=== PATIENT | female | born 1975 | race Caucasian/White ===

== ENCOUNTER 2021-10-11 08:58 | Outpatient (REF) | payer OTHER, SELFPAY ==
--- NOTE | ~2021-10-11 | US_ITS ---
EXAMINATION: US THYROID CLINICAL INFORMATION: Nontoxic goiter, unspecified. COMPARISON: None. TECHNIQUE: Linear transducer grayscale and color Doppler examination with attention to the region of the thyroid. FINDINGS: SIZE: Measurements of the thyroid lobes and nodules are given in sagittal, anteroposterior and transverse dimensions respectively. Right Thyroid Lobe: 4.5 x 1.2 x 1.5 cm, volume 4.2 mL. Parenchyma: The gland echotexture is homogeneous. Thyroid vascularity is normal. Left Thyroid Lobe: 4.4 x 1.2 x 1.4 cm, volume 3.9 mL. Parenchyma: The gland echotexture is homogeneous. Thyroid vascularity is normal. Isthmus: 0.2 cm in maximum AP dimension. No focal thyroid nodule is seen. NODES: There is right level 3 lymph node measuring 1.7 x 0.5 1.1 cm and level 2 left neck lymph node measuring 2.0 x 1.0 x 2.6 cm. US/US thyroid IMPRESSION: Unremarkable ultrasound thyroid gland with no focal nodule or heterogeneity seen. Benign-appearing right and left neck lymph nodes. ACR TI-RADS RECOMMENDATION REFERENCE: Ultrasound-guided fine-needle aspiration, followup ultrasound, no further follow up. * TR1 (0 point) and TR 2 (2 points): No FNA or follow up * TR3 (3 points): FNA if more than or equal to 2.5 cm in maximum dimension, followup ultrasound in 1, 3 and 5 years if 1.5 to 2.4 cm in maximum dimension. * TR4 (4-6 points): FNA if more than or equal to 1.5 cm in maximum dimension, followup ultrasound in 1, 2, 3 and 5 years if 1 to 1.4 cm in maximum dimension. * TR5 (more than or equal to 7 points): FNA if more than or equal to 1 cm in maximum dimension, followup ultrasound every year for 5 years if 0.5 to 0.9 cm in maximum dimension. * TR3, TR4 or TR5 nodules that are below the size threshold for follow up receive no follow up.
[2021-10-11 11:43] LABS: Hematocrit 41.8 % (37.0-47.0); Hemoglobin 13.4 g/dl (12.0-16.0); Mean Corpuscular HGB Conc 32.1 g/dl (31.0-35.0); Mean Corpuscular Hemoglobin 31.8 pg (27.0-33.0); Mean Corpuscular Volume 99.1 fL (80.0-98.0); Mean Platelet Volume 10.4 fL (9.4-12.3); Platelet Count 286 X10*3/uL (160-400); Red Blood Count 4.22 X10*6/uL (4.20-5.50); Red Cell Distribution Width 13.7 % (11.0-16.0); White Blood Count 6.2 X10*3/uL (4.8-10.8)
[2021-10-11 12:09] LABS: Appearance Urine CLEAR; Color Urine YELLOW; Glucose Urine UA NEG (NEG); Leukocyte Esterase Urine NEG (NEG); Nitrite Urine NEG (NEG); Urine Blood NEG (NEG); Urine Ketones NEG (NEG); Urine Protein NEG (NEG-TRACE)
[2021-10-11 12:31] LABS: TSH reflex Free T4 2.33 uIU/mL (0.32-4.0)
[2021-10-11 12:40] LABS: Alanine Aminotransferase 25 U/L (0-31); Alkaline Phosphatase 105 U/L (39-117); Anion Gap 12 (12-20); Aspartate Amino Transferase 20 U/L (5-31); Bilirubin Total 0.7 mg/dL (0.0-1.0); Blood Urea Nitrogen 12 mg/dL (9-16); Carbon Dioxide 26 mmol/L (22-29); Chloride 105 mmol/L (96-108); Cholesterol 155 mg/dL; Estimated Glomerular Filt Rate > 60; Glucose Fasting 90 mg/dL (60-99); HDL Cholesterol 58 mg/dL; LDL Cholesterol Calculated 84 mg/dl; Potassium 4.5 mmol/L (3.3-5.1); Sodium 138 mmol/L (135-145); Total Protein 7.4 g/dL (6.5-8.0); Triglycerides 66 mg/dL
[2021-10-11 13:57] LABS: Squamous Epithelial Cell Urine 1+ /LPF; WBC Urine 0-2 /HPF (0-4)
== END 2021-10-11 08:59 | disposition home or self-care (01) ==
LOC: HO.HMGCLDS 08:58
PROVIDERS: PCP Internal Medicine; Visit Provider Internal Medicine
DX: Z00.00 Encounter for general adult medical examination without abnormal findings (principal); E04.9 Nontoxic goiter, unspecified; E66.3 Overweight
CPT/HCPCS: 36415; 76536; 80053; 80061; 81001; 84443; 85027

== ENCOUNTER 2021-10-11 09:58 | Outpatient (REF) | payer OTHER, SELFPAY ==
[2021-10-14 05:51] LABS: HPV mRNA E6/E7 rflx Not Detected (Not Detected)
== END 2021-10-11 09:59 | disposition home or self-care (01) ==
LOC: HO.LAB 09:58
PROVIDERS: Visit Provider Internal Medicine
DX: Z12.4 Encounter for screening for malignant neoplasm of cervix (principal); Z11.51 Encounter for screening for human papillomavirus (HPV)
CPT/HCPCS: 87624; 88142

== ENCOUNTER 2021-11-15 09:07 | Outpatient (REF) | payer OTHER, SELFPAY ==
--- NOTE | ~2021-11-15 | MM_ITS ---
EXAMINATION: MM SCREENING DIGITAL BREAST TOMOSYNTHESIS, BILATERAL CLINICAL INFORMATION: Screening. Asymptomatic. The lifetime risk of breast cancer based on the Tyrer-Cuzick Model is 17%. COMPARISON: Outside mammography: 08/29/2017 ([facility]). TECHNIQUE: Digital breast tomosynthesis is performed in both the craniocaudal and mediolateral oblique views along with computer-aided detection (CAD). Synthesized 2D images are generated from the tomosynthesis. Additional left view is provided. FINDINGS: There are scattered areas of fibroglandular density (ACR BI-RADS breast composition Category b). Parenchymal pattern is similar to prior outside exam. There is no interval mass or architectural abnormality or abnormal calcifications. Small dermal lesion overlies posterior upper left breast on MLO view. The axilla and skin contours are unremarkable. No significant changes. MM/MM tomosynthesis screening BI IMPRESSION: No mammographic evidence of malignancy. ASSESSMENT: BI-RADS 1: Negative RECOMMENDATION: Routine annual mammography screening. This patient's information was entered into a reminder system with a target due date for their next mammogram.
== END 2021-11-15 09:08 | disposition home or self-care (01) ==
LOC: HO.MAMMO 09:07
PROVIDERS: PCP Internal Medicine; Visit Provider Internal Medicine
DX: Z12.31 Encounter for screening mammogram for malignant neoplasm of breast (principal)
CPT/HCPCS: 77063; 77067

== ENCOUNTER 2022-11-23 08:08 | Outpatient (REF) | payer OTHER, SELFPAY ==
--- NOTE | ~2022-11-23 | MM_ITS ---
EXAMINATION: MM SCREENING DIGITAL BREAST TOMOSYNTHESIS, BILATERAL CLINICAL INFORMATION: Screening. Asymptomatic. The lifetime risk of breast cancer based on the Tyrer-Cuzick Model is 17%. COMPARISON: Mammography: 11/15/2021, outside mammography 08/29/2017 ([facility]) TECHNIQUE: Digital breast tomosynthesis is performed in both the craniocaudal and mediolateral oblique views along with computer-aided detection (CAD). Synthesized 2D images are generated from the tomosynthesis. Additional left CC view is provided. FINDINGS: There are scattered areas of fibroglandular density (ACR BI-RADS breast composition Category b). There are no significant masses, abnormal calcifications, or other abnormalities. No architectural abnormality or developing density or significant change from prior studies. The axilla are unremarkable. MM/MM tomosynthesis screening BI IMPRESSION: No mammographic evidence of malignancy. ASSESSMENT: BI-RADS 1: Negative RECOMMENDATION: Routine annual mammography screening. This patient's information was entered into a reminder system with a target due date for their next mammogram.
== END 2022-11-23 08:09 | disposition home or self-care (01) ==
LOC: HO.MAMMO 08:08
PROVIDERS: Visit Provider Internal Medicine
DX: Z12.31 Encounter for screening mammogram for malignant neoplasm of breast (principal)
CPT/HCPCS: 77063; 77067

== ENCOUNTER 2023-01-09 11:19 | Outpatient (REF) | payer OTHER, SELFPAY ==
[2023-01-09 14:04] LABS: Bacteria Urine Trace (None Seen); Hyaline Casts Urine 0-2 /LPF (0-2); RBC Urine >20 /HPF (0-2)
[2023-01-09 14:05] LABS: MANUAL DIFF FLAG NO
[2023-01-09 14:10] LABS: Appearance Urine Cloudy; Color Urine DK YELLOW; Glucose Urine UA Negative (Negative); Leukocyte Esterase Urine Negative (Negative); Nitrite Urine Negative (Negative); Urine Blood Large (3+) (Negative); Urine Ketones Negative (Negative); Urine Protein Trace mg/dL (Neg-Trace)
[2023-01-09 14:11] LABS: UMIC TRIGGER UA YES
[2023-01-09 14:31] LABS: Basophils Absolute Auto 0.1 X10*3/uL (0.0-0.2); Eosinophils Absolute Auto 0.4 X10*3/uL (0.0-0.4); Eosinophils Percent Auto 5.6 % (0-4); Hematocrit 40.8 % (37.0-47.0); Imm Gran Abs Auto 0.03 X10*3/uL (0.00-0.03); Imm Gran Pct Auto 0.4 % (0.0-0.4); Lymphocytes Absolute Auto 1.7 X10*3/uL (1.2-4.9); Lymphocytes Percent Auto 24.4 % (20-40); Mean Corpuscular HGB Conc 31.9 g/dl (31.0-35.0); Mean Corpuscular Hemoglobin 31.2 pg (27.0-33.0); Mean Corpuscular Volume 97.8 fL (80.0-98.0); Mean Platelet Volume 10.4 fL (9.4-12.3); Monocytes Absolute Auto 0.7 X10*3/uL (0.1-1.2); Monocytes Percent Auto 10.4 % (2-11); Neutrophils Percent Auto 58.2 % (45-73); Platelet Count 293 X10*3/uL (160-400); Red Blood Count 4.17 X10*6/uL (4.20-5.50); Red Cell Distribution Width 14.3 % (11.0-16.0); White Blood Count 6.9 X10*3/uL (4.8-10.8)
[2023-01-09 15:01] LABS: Alanine Aminotransferase 18 U/L (0-31); Albumin Level 3.8 g/dL (3.5-5.0); Alkaline Phosphatase 95 U/L (39-117); Anion Gap 6 (12-20); Aspartate Amino Transferase 18 U/L (5-31); Bilirubin Total 1.1 mg/dL (0.0-1.0); Blood Urea Nitrogen 16 mg/dL (9-16); Calcium 8.6 mg/dL (8.4-10.2); Carbon Dioxide 29 mmol/L (22-29); Chloride 108 mmol/L (96-108); Cholesterol 148 mg/dL; Estimated Glomerular Filt Rate > 60; Glucose Fasting 86 mg/dL (60-99); HDL Cholesterol 51 mg/dL; LDL Cholesterol Calculated 86 mg/dl; Potassium 4.2 mmol/L (3.3-5.1); Sodium 139 mmol/L (135-145); Total Protein 6.5 g/dL (6.5-8.0); Triglycerides 55 mg/dL
[2023-01-09 15:02] LABS: TSH reflex Free T4 2.51 uIU/mL (0.32-4.0)
== END 2023-01-09 11:20 | disposition home or self-care (01) ==
LOC: HO.HMGCLDS 11:19
PROVIDERS: PCP Internal Medicine; Visit Provider Internal Medicine
DX: Z00.00 Encounter for general adult medical examination without abnormal findings (principal); E66.3 Overweight; I10 Essential (primary) hypertension
CPT/HCPCS: 36415; 80053; 80061; 81001; 84443; 85025

== ENCOUNTER 2023-01-16 09:06 | Outpatient (REF) | payer OTHER, SELFPAY ==
[2023-01-16 11:28] LABS: Appearance Urine Cloudy; Color Urine Yellow; Glucose Urine UA Negative (Negative); Leukocyte Esterase Urine Small (1+) (Negative); Nitrite Urine Negative (Negative); Specific Gravity - Urine >= 1.030 (1.005-1.025); UMIC TRIGGER UA YES; Urine Blood Negative (Negative); Urine Ketones Negative (Negative); Urine Protein Negative (Neg-Trace)
[2023-01-16 11:34] LABS: Bacteria Urine 1+ (None Seen); Hyaline Casts Urine 0-2 /LPF (0-2)
== END 2023-01-16 09:07 | disposition home or self-care (01) ==
LOC: HO.HMGCLDS 09:06
PROVIDERS: PCP Internal Medicine; Visit Provider Internal Medicine
DX: Z00.00 Encounter for general adult medical examination without abnormal findings (principal)
CPT/HCPCS: 81001

== ENCOUNTER 2023-01-30 14:49 | Outpatient (REF) | payer OTHER, SELFPAY ==
--- NOTE | ~2023-01-30 | US_ITS ---
EXAMINATION: US RETROPERITONEAL LIMITED (RENAL ONLY) CLINICAL INFORMATION: Asymptomatic microscopic hematuria. COMPARISON: None available. TECHNIQUE: Real-time imaging of the kidneys. FINDINGS: RIGHT KIDNEY: 11.1 x 5.3 x 5.8 cm (SAG x AP x TRV). The kidney is normal in size, contour, and echogenicity. Renal cortical thickness is normal. 3 cm simple appearing lower pole cyst for which no follow-up imaging is usually warranted. Subcentimeter midpole cortical defect, possibly scar. No renal calculi or hydronephrosis. LEFT KIDNEY: 10.5 x 5.9 x 5.4 cm (SAG x AP x TRV). The kidney is normal in size, contour, and echogenicity. Renal cortical thickness is normal. 9 mm simple appearing upper pole cyst for which no follow-up imaging is usually warranted. Some linear echogenic foci are noted within the left kidney which are nonspecific but may represent vascular reflections. There is no hydronephrosis. US/US renal BI IMPRESSION: No renal calculi or hydronephrosis of either kidney.
== END 2023-01-30 14:50 | disposition home or self-care (01) ==
LOC: HO.US 14:49
PROVIDERS: PCP Internal Medicine; Visit Provider Internal Medicine
DX: R31.21 Asymptomatic microscopic hematuria (principal)
CPT/HCPCS: 76775

== ENCOUNTER 2023-03-20 09:36 | Outpatient (REF) | payer OTHER, SELFPAY ==
[2023-03-25 05:34] LABS: HPV mRNA E6/E7 rflx Not Detected (Not Detected)
== END 2023-03-20 09:37 | disposition home or self-care (01) ==
LOC: HO.LNP 09:36
PROVIDERS: PCP Internal Medicine; Visit Provider Advanced Practice Midwife
DX: Z01.419 Encounter for gynecological examination (general) (routine) without abnormal findings (principal); Z11.51 Encounter for screening for human papillomavirus (HPV)
CPT/HCPCS: 87624; 88142

== ENCOUNTER 2023-03-31 09:42 | Outpatient (REF) | payer OTHER, SELFPAY ==
[2023-03-31 11:39] LABS: Appearance Urine Clear; Color Urine Yellow; Glucose Urine UA Negative (Negative); Leukocyte Esterase Urine Negative (Negative); Nitrite Urine Negative (Negative); Specific Gravity - Urine 1.025 (1.005-1.025); Urine Blood Negative (Negative); Urine Ketones Negative (Negative); Urine Protein Negative (Neg-Trace)
[2023-03-31 11:42] LABS: Bacteria Urine None Seen (None Seen); Hyaline Casts Urine 0-2 /LPF (0-2); RBC Urine 0-2 /HPF (0-2); Squamous Epithelial Cell Urine 0-2 /HPF (0-2); WBC Urine 0-5 /HPF (0-5)
== END 2023-03-31 09:43 | disposition home or self-care (01) ==
LOC: HO.HMGCLDS 09:42
PROVIDERS: PCP Internal Medicine; Visit Provider Internal Medicine
DX: Z00.00 Encounter for general adult medical examination without abnormal findings (principal); R31.21 Asymptomatic microscopic hematuria
CPT/HCPCS: 81001; 81003

== ENCOUNTER 2023-04-03 11:00 | Outpatient (AMB) | payer OTHER, SELFPAY ==
--- NOTE | 2023-04-03 11:15 | MHC.OFFVIS ---
Intake Vital Signs 04/03/23 11:16 Height 5 ft 1 in Weight 253 lb BMI 47.8 BP 132/61 Blood Pressure Location Lt brachial Position Sitting Pulse 69 Intake Visit Reasons: colonoscopy screening Intake Note: Patient 1st pre colonoscopy screening. Patient denies any GI issues. Overlock Hemmer Required: No Accompanied by: Spouse Allergies amlodipine Adverse Reaction (Intermediate, Verified 04/03/23 11:15) cough cephalexin [From Keflex] Adverse Reaction (Verified 04/03/23 11:15) Rash Penicillins Adverse Reaction (Verified 04/03/23 11:15) Rash Sulfa (Sulfonamide Antibiotics) Adverse Reaction (Verified 04/03/23 11:15) Rash Medication List - Last Reconciled 04/03/23 by Shirin Burgos PA-C bisoprolol fumarate 5 mg PO DAILY HPI HPI Comments History of Present Illness Details A 48 y/o female - index screening colonoscopy-she is here with her Normal bowel pattern, she has a good appetite She has no GI or general complaints No known family history of GI cancer No respiratory or cardiac issues No nausea, vomiting, hematemesis, hematochezia fever chills PFSH Medical History Annual physical exam Anxiety Enlarged thyroid Grieving HTN (hypertension) Irregular menses Normal pelvic exam Overweight Surgical History Hx of cholecystectomy S/P knee surgery Family History Father HTN (hypertension) DM (diabetes mellitus) Mother HTN (hypertension) Stroke Social History Household Members Other:: , no children, work at [employer], Housing: House Patient Tobacco Use Status: Never used Tobacco Second Hand Smoke Exposure: Yes service: No Current occupational status: employed Cognitive needs: No Hearing needs: No Vision needs: No Review of Systems Const All systems reviewed & are unremarkable except as noted in HPI and below Card Denies chest pain and Denies dyspnea Resp Denies dyspnea GI Denies abdominal pain and Denies heartburn Physical Exam Vital Signs: Last Vital Signs Pulse 69 04/03/23 11:16 BP 132/61 04/03/23 11:16 BMI result Body Mass Index 47.8 Const General: cooperative, healthy appearing and comfortable Limitations: no limitations Eyes Sclerae: sclerae normal Resp Effort & Inspection: normal respiratory effort and able to speak in complete sentences Auscultation: clear to auscultation bilaterally Cardio Rate: regular rate Rhythm: regular rhythm Heart sounds: S1 normal heart sound present and S2 normal heart sound present GI Palpation (GI): Soft to palpation and nontender Auscultation: normal bowel sounds Skin General skin exam: no rashes or lesions noted Extrem General: Yes full ROM Psych Appearance: grossly normal and well kempt Mental Status: mental status grossly normal Speech and movement: Normal speech and movement present and Clear speech present Affect: normal affect Attitude: cooperative Thought process: Normal thought process present Thought content: Normal thought content present Insight: Good insight present (Psych) Judgement: Good judgement present (Psych) Assessment & Plan Assessment & Plan (1) Encounter for screening colonoscopy: Comment: Very pleasant female note GI concerns referred for index screening colonoscopy Code(s): Z12.11 - Encounter for screening for malignant neoplasm of colon Plan: index screening Plan colonoscopy MG Orders: Orders Colonoscopy - GI Use Only Today Z12.11 - Encounter for screening for malignant neoplasm of colon Medications: New bisacodyl (Dulcolax (bisacodyl)) Take 4 tablets by mouth at 12:00pm the day before your procedure. 20 mg (4 x 5 mg) PO ONCE 4 tabs 0RF colonoscopy prep 1 day Z12.11 - Encounter for screening for malignant neoplasm of colon polyethylene glycol 3350 (Miralax) Take as directed by mouth the day before your procedure. 238 grams PO ONCE 238 grams 0RF 1 day Patient Instructions: Index screening colonoscopy Discussed procedure, rare risks need for escorted due to anesthesia and MiraLax Gatorade split prep Literature given Encouraged to call questions or concerns Appreciate the opportunity assist in care the patient Coding Level of Care Code New Pt Level 3 (85469) Diagnoses Encounter for screening colonoscopy Z12.11 Time Spent (min) 25
[2023-04-03 11:16] VITALS: BP 132/61; PULSE 69; BMI 47.8
== END 2023-04-03 12:59 | disposition home or self-care (01) ==
PROVIDERS: PCP Internal Medicine; Visit Provider Physician Assistant
DX: Z01.818 Encounter for other preprocedural examination (principal); Z12.11 Encounter for screening for malignant neoplasm of colon
CPT/HCPCS: 99203

== ENCOUNTER → 2023-04-03 11:00 | Outpatient (BNVA) | payer OTHER, SELFPAY | PROVIDERS: PCP Internal Medicine; Visit Provider Physician Assistant ==

== ENCOUNTER 2023-04-13 11:06 | Outpatient (REF) | payer OTHER, SELFPAY ==
--- NOTE | ~2023-04-13 | US_ITS ---
EXAMINATION: US PELVIS CLINICAL INFORMATION: Personal history of other diseases of female genital tract. Last menstrual period 03/07/2023. COMPARISON: None available. TECHNIQUE: Ultrasound of the pelvis is performed using both transabdominal and transvaginal transducers along with Doppler. Transvaginal imaging is performed due to inadequate visualization transabdominally. FINDINGS: Uterus: The uterus is anteverted and measures 7.4 x 2.8 x 4.1 cm. Uterus is diffusely heterogeneous. No discrete fibroids. The double wall endometrial thickness is 0.4 cm. Adnexa: Bilateral ovaries were suboptimally visualized on transabdominal ultrasound images, limiting evaluation. Right ovary measures 1.8 x 0.9 x 1.4 cm. Volume 1.2 mL. Left ovary measures 1.5 x 1.1 x 1.9 cm. Volume 1.6 mL. Small amount of fluid within the cervix. US/US pelvic and transvaginal IMPRESSION: 1. Heterogeneous uterus. No discrete fibroids. 2. Endometrial thickness is 0.4 cm. Limited visualization of endometrium due to uterine heterogeneity and positioning. 3. Bilateral ovaries are grossly unremarkable, however, visualization limited as detailed above. 4. Small amount of fluid within the cervix.
== END 2023-04-13 11:07 | disposition home or self-care (01) ==
LOC: HO.US 11:06
PROVIDERS: PCP Internal Medicine; Visit Provider Advanced Practice Midwife
DX: Z01.419 Encounter for gynecological examination (general) (routine) without abnormal findings (principal); E66.01 Morbid (severe) obesity due to excess calories; Z87.42 Personal history of other diseases of the female genital tract
CPT/HCPCS: 76830; 76856

== ENCOUNTER 2023-06-19 09:27 | Outpatient (AMB) | payer OTHER, SELFPAY ==
--- NOTE | 2023-06-19 09:32 | A.OFFVIS_ITS ---
Intake Vital Signs 06/19/23 09:34 Height 5 ft 1 in Weight 256 lb BMI 48.4 BP 144/90 H Intake Visit Reasons: US Follow up Health And Safety Specialist Required: No Allergies amlodipine Adverse Reaction (Intermediate, Verified 06/19/23 09:38) cough cephalexin [From Keflex] Adverse Reaction (Verified 06/19/23 09:38) Rash Penicillins Adverse Reaction (Verified 06/19/23 09:38) Rash Sulfa (Sulfonamide Antibiotics) Adverse Reaction (Verified 06/19/23 09:38) Rash Medication List - Last Reconciled 06/19/23 by Elise Chapin CNM bisacodyl (Dulcolax (bisacodyl)) 20 mg (4 x 5 mg) PO ONCE 1 day bisacodyl (Dulcolax (bisacodyl)) 20 mg (4 x 5 mg) PO ONCE 1 day bisoprolol fumarate 5 mg PO DAILY polyethylene glycol 3350 (Miralax) 238 grams PO ONCE 1 day Is last menstrual period known: No (no menses since February) HPI US Follow up HPI Details Patient is here to review her ultrasound. She had a period March 16 to March 18 and another 1 April 06 to but has not had 1 in April or May. She often feels like she is going to get her. But it does not come about a year ago she missed a period for 6 months. In the past a Mirena IUD was planned but the procedure was attempted when she was towards the end of her menses and it was so painful and it was just impossible to get it into her cervix. She is but not having sex very much because her partner has issues with performance as well. She also has high blood pressure she is working on trying to eat better and she also was watching her blood pressure and has follow-up with her primary care provider in August for that. She and her just bought an exercise bike to tried a exercise in the house. She also has the bone spur and her heel and plantar fasciitis so she is limping and can not walk very much though she is on her feet for her work all day. She is waiting on an appointment with the foot doctor as well. She has not been sexually active because of her 's issues but she also does not want to get at this age. There has also been a lot of stress with financial and house concerns (roof problems). I reviewed her ultrasound which was fairly nonspecific but did not show and thickened lining. Her Pap smear was also normal discussed the option of taking Provera wants to see if that would bring on a. It is also certainly possible that she is in the amanda menopausal range and that may account for lack of menses. Though she is not absent menses long enough to consider doing an FSH. She would be interested in a Mirena again if it could be inserted so after much discussion plan was made to have her take Provera for 10 days at a date of her choosing and watch for he period; And when it comes she is to call to tried in schedule insertion of a Mirena as close to the start of her period as possible her periods typically only last 2-3 days so it is a small window aim for. In addition because she said the last attempt was so difficult and unsuccessful I am also prescribing a single dose of misoprostol for her to insert in her vagina 4-6 hours ahead of the insertions appointment rationale for all of this this discussed. She is interested in this she thinks that it will give her some relief to know that she can not get and that may make life better and lots of ways. FORMERLY [facility], [facility] Medical History Annual physical exam Anxiety Enlarged thyroid Grieving HTN (hypertension) Irregular menses Normal pelvic exam Overweight Surgical History Hx of cholecystectomy S/P knee surgery Family History Father HTN (hypertension) DM (diabetes mellitus) Mother HTN (hypertension) Stroke Social History Household Members Other:: , no children, work at [employer], Housing: House Patient Tobacco Use Status: Never used Tobacco Second Hand Smoke Exposure: Yes service: No Current occupational status: employed Cognitive needs: No Hearing needs: No Vision needs: No Female Reproductive History Menstrual control method: none Date of last pap smear: 03/23/23 (negative) Physical Exam Vital Signs: Last Vital Signs BP 144/90 H 06/19/23 09:34 BMI result Body Mass Index 48.4 Results Reviewed Results Reviewed: Name: Martha Nelson Age/Sex: 48/F Attending: Elise Chapin CNM : 1975 Submitted by: Elise Chapin CNM Copies to: Francoise Solares MD MR #: [id number] Status: DEP REF Collected: 03/20/23 Location: [facility] Received: 03/23/23 Interpretation Satisfactory for evaluation. Negative for intraepithelial lesion or malignancy. HPV mRNA E6/E7: NOT DETECTED This assay detects E6/E7 viral messenger RNA (mRNA) from 14 high-risk HPV types (16, 18, 31, 33, 35, 39, 45, 51, 52, 56, 58, 59, 66, 68) HPV testing performed by [facility], [place], [place]. See reference laboratory pion of the EMR for entire report. Clinical Information LMP: 02/2023 Previous PAP test: 10/11/2021, WNL Material Received ThinPrep-Cervical Copies To Francoise Solares MD [address] [place] [id number] Elise Chapin CNM [address] [place] [address] Dr. Annabella [place]on [place] [id number] Electronically Signed By: ELYSIA Wilson (ASCP) 04/05/23 1341 The Pap Test is a screening procedure with the inherent possibility of both false negative and false positive results. Results should be interpreted in the context of historic and current clinical findings. Reliability of the Pap Test is enhanced by performing the test on a regular repetitive basis. Patient: Martha Nelson Age/Sex: 48/F MR#: [id number] Page [address] of [address] [address] Ultrasound Report Signed Patient: Martha Nelson MR#: [id number] : 1975 Acct:[id number] Age/Sex: 48 / F ADM Date: 04/13/23 Loc: .[place] Attending Dr: Elise Chapin CNM Ordering Physician: Elise Chapin CNM Date of Service: 04/13/23 Procedure(s): US pelvic and transvaginal Accession Number(s): [id number] cc: Elise Chapin CNM~ EXAMINATION: US PELVIS CLINICAL INFORMATION: Personal history of other diseases of female genital tract. Last menstrual period 03/07/2023. COMPARISON: None available. TECHNIQUE: Ultrasound of the pelvis is performed using both transabdominal and transvaginal transducers along with Doppler. Transvaginal imaging is performed due to inadequate visualization transabdominally. FINDINGS: Uterus: The uterus is anteverted and measures 7.4 x 2.8 x 4.1 cm. Uterus is diffusely heterogeneous. No discrete fibroids. The double wall endometrial thickness is 0.4 cm. Adnexa: Bilateral ovaries were suboptimally visualized on transabdominal ultrasound images, limiting evaluation. Right ovary measures 1.8 x 0.9 x 1.4 cm. Volume 1.2 mL. Left ovary measures 1.5 x 1.1 x 1.9 cm. Volume 1.6 mL. Small amount of fluid within the cervix. US/US pelvic and transvaginal IMPRESSION: 1. Heterogeneous uterus. No discrete fibroids. 2. Endometrial thickness is 0.4 cm. Limited visualization of endometrium due to uterine heterogeneity and positioning. 3. Bilateral ovaries are grossly unremarkable, however, visualization limited as detailed above. 4. Small amount of fluid within the cervix. Dictated By: Yuli Buckner MD Signed By: <Electronically signed by Yuli Buckner MD in OV> 04/17/23 1340 DD/ 1129 TD/TT: Cable Technician: Assessment & Plan Assessment & Plan (1) History of irregular menstrual cycles: Code(s): Z87.42 - Personal history of other diseases of the female genital tract (2) Encounter for gynecological examination with Papanicolaou smear of cervix: Comment: 03/20/2023 Pap is negative with negative HPV. Code(s): Z01.419 - Encounter for gynecological examination (general) (routine) without abnormal findings (3) Obesity, morbid, BMI 40.0-49.9: Code(s): E66.01 - Morbid (severe) obesity due to excess calories (4) HTN (hypertension): Code(s): I10 - Essential (primary) hypertension Plan Patient is here to review her ultrasound. She had a period March 16 to March 18 and another 1 April 06 to but has not had 1 in April or May. She often feels like she is going to get her. But it does not come about a year ago she missed a period for 6 months. In the past a Mirena IUD was planned but the procedure was attempted when she was towards the end of her menses and it was so painful and it was just impossible to get it into her cervix. She is but not having sex very much because her partner has issues with performance as well. She also has high blood pressure she is working on trying to eat better and she also was watching her blood pressure and has follow-up with her primary care provider in August for that. She and her just bought an exercise bike to tried a exercise in the house. She also has the bone spur and her heel and plantar fasciitis so she is limping and can not walk very much though she is on her feet for her work all day. She is waiting on an appointment with the foot doctor as well. She has not been sexually active because of her 's issues but she also does not want to get at this age. There has also been a lot of stress with financial and house concerns (roof problems). I reviewed her ultrasound which was fairly nonspecific but did not show and thickened lining. Her Pap smear was also normal discussed the option of taking Provera wants to see if that would bring on a. It is also certainly possible that she is in the amanda menopausal range and that may account for lack of menses. Though she is not absent menses long enough to consider doi ng an FSH. She would be interested in a Mirena again if it could be inserted so after much discussion plan was made to have her take Provera for 10 days at a date of her choosing and watch for he period; And when it comes she is to call to tried in schedule insertion of a Mirena as close to the start of her period as possible her periods typically only last 2-3 days so it is a small window aim for. In addition because she said the last attempt was so difficult and unsuccessful I am also prescribing a single dose of misoprostol for her to insert in her vagina 4-6 hours ahead of the insertions appointment rationale for all of this this discussed. She is interested in this she thinks that it will give her some relief to know that she can not get and that may make life better and lots of ways. Also discussed situations that may recommend to having an endometrial biopsy though it does not appear necessary at this stage. Medications: New medroxyprogesterone (Provera) take as discussed for absence of menses 10 mg PO DAILY [address] in vagina within 4 hours prior to planned IUD procedure 200 mcg vaginal ONCE 1 tab 0RF Coding Level of Care Code Est Pt Level 3 (64630) Diagnoses History of irregular menstrual cycles Z87.42 Encounter for gynecological examination with Papanicolaou smear of cervix Z01.419 Obesity, morbid, BMI 40.0-49.9 E66.01 HTN (hypertension) I10
[2023-06-19 09:34] VITALS: BP 144/90; BMI 48.4
== END 2023-06-19 10:06 | disposition home or self-care (01) ==
PROVIDERS: PCP Internal Medicine; Visit Provider Advanced Practice Midwife
DX: Z87.42 Personal history of other diseases of the female genital tract (principal); Z01.419 Encounter for gynecological examination (general) (routine) without abnormal findings; E66.01 Morbid (severe) obesity due to excess calories; I10 Essential (primary) hypertension
CPT/HCPCS: 99213

== ENCOUNTER → 2023-06-19 09:27 | Outpatient (BNVA) | payer OTHER, SELFPAY | PROVIDERS: PCP Internal Medicine; Visit Provider Advanced Practice Midwife ==

== ENCOUNTER 2023-08-31 09:26 | Outpatient (REF) | payer OTHER, SELFPAY ==
[2023-08-31 12:14] LABS: Alanine Aminotransferase 26 U/L (0-31); Albumin Level 3.6 g/dL (3.5-5.0); Alkaline Phosphatase 86 U/L (39-117); Aspartate Amino Transferase 22 U/L (5-31); Bilirubin Direct 0.2 mg/dL (0.0-0.5); Bilirubin Total 0.6 mg/dL (0.0-1.0); Total Protein 6.8 g/dL (6.5-8.0)
== END 2023-08-31 09:27 | disposition home or self-care (01) ==
LOC: HO.HMGCLDS 09:26
PROVIDERS: PCP Internal Medicine; Visit Provider Podiatrist
DX: B35.1 Tinea unguium (principal)
CPT/HCPCS: 36415; 80076

== ENCOUNTER 2023-09-04 08:48 | Outpatient (AMB) | payer OTHER, SELFPAY ==
[2023-09-04 08:49] VITALS: BP 126/76; PULSE 82; O2SAT 98; BMI 48.4
--- NOTE | 2023-09-04 08:49 | MHC.PC.OV ---
Vital Signs 09/04/23 08:49 Height 5 ft 1 in Weight 256 lb BMI 48.4 BP 126/76 Blood Pressure Location Lt brachial Position Sitting Pulse 82 Pulse Source Pulse Oximeter Pulse Oximetry (%) 98 Oxygen Delivery Method Room Air Intake Visit Reasons: 6m htn Intake Note: Pt is here today for 6 months follow up visit. Allergies amlodipine Adverse Reaction (Intermediate, Verified 09/04/23 08:51) cough cephalexin [From Keflex] Adverse Reaction (Verified 09/04/23 08:51) Rash Penicillins Adverse Reaction (Verified 09/04/23 08:51) Rash Sulfa (Sulfonamide Antibiotics) Adverse Reaction (Verified 09/04/23 08:51) Rash Tobacco use date assessed: 09/04/23 Dental Screening Dental Screen Date: 09/04/23 Did you have a dental visit in the last 12 months?: Yes Did you have a dental problem in the last 6 months where you did not have access to dental care?: No Was dental information given to patient?: Patient has dentist HPI 6m htn HPI Details Pt presents for f/u of HTN, stable on Bisoprolol. PFSH Medical History (Updated 09/04/23 @ 09:20 by Francoise Solares MD) HTN (hypertension) Irregular menses Anxiety Enlarged thyroid Grieving Overweight Normal pelvic exam Annual physical exam Surgical History Hx of cholecystectomy S/P knee surgery Family History Father HTN (hypertension) DM (diabetes mellitus) Mother HTN (hypertension) Stroke Social History Household Members Other:: , no children, work at [employer], Housing: House Patient Tobacco Use Status: Never used Tobacco Second Hand Smoke Exposure: Yes service: No Current occupational status: employed Cognitive needs: No Hearing needs: No Vision needs: No Questionnaire Thrive Questionnaire Date Thrive assessed: 01/09/23 CARLOS-7 AMB Questionnaire CARLOS-7 Date CARLOS - 7 assessed: 01/09/23 Source: Developed by Drs. Sridhar Gill, Mercedez Devine, Raheem Horner and colleagues, with an educational brittanie from [employer]. Review of Systems Const All systems reviewed & are unremarkable except as noted in HPI and below Reports no additional complaints Eyes Reports no additional complaints ENT Reports no additional complaints Card Reports no additional complaints Resp Reports no additional complaints GI Reports no additional complaints Reports no additional complaints Physical exam (Primary Care) Vital Signs: Last Vital Signs Pulse 82 09/04/23 08:49 BP 126/76 09/04/23 08:49 Pulse Ox 98 09/04/23 08:49 Oxygen Delivery Method Room Air 09/04/23 08:49 BMI result Body Mass Index 48.4 Tobacco/Smoking Status: Tobacco use Status Tobacco use date assessed 09/04/23 09/04/23 08:53 Patient Tobacco Use Status Never used Tobacco 09/04/23 08:49 Thrive Assessment: Date of Thrive Assessment Date Thrive assessed 01/09/23 09/04/23 08:49 Const General: no acute distress HENMT Head: Yes normal to inspection Neck Neck: Yes supple Resp Effort & Inspection: normal respiratory effort Auscultation: clear to auscultation bilaterally Cardio Rhythm: regular rhythm Heart sounds: S1 normal heart sound present and S2 normal heart sound present Assessment and Plan Assessment & Plan (1) HTN (hypertension): Code(s): I10 - Essential (primary) hypertension Plan: cont Bisoprolol for HTN and sinus tachy, PE in December (2) Annual physical exam: Code(s): Z. - Encounter for general adult medical examination without abnormal findings (3) History of irregular menstrual cycles: Comment: f/u with Erosion Control Coordinator Code(s): Z87.42 - Personal history of other diseases of the female genital tract Orders: Orders Complete Blood Count Auto Diff 5 Months I10 - Essential (primary) hypertension, Z00.00 - Encounter for general adult medical examination without abnormal findings Comprehensive [place]. Panel Fast 5 Months I10 - Essential (primary) hypertension, Z00.00 - Encounter for general adult medical examination without abnormal findings Lipid Panel 5 Months I10 - Essential (primary) hypertension, Z00.00 - Encounter for general adult medical examination without abnormal findings TSH reflex Free T4 5 Months I10 - Essential (primary) hypertension, Z00.00 - Encounter for general adult medical examination without abnormal findings Coding Level of Care Code Est Pt Level 3 (19935) Diagnoses HTN (hypertension) I10 Annual physical exam Z00.00 History of irregular menstrual cycles Z87.42
== END 2023-09-04 09:22 | disposition home or self-care (01) ==
PROVIDERS: PCP Internal Medicine; Visit Provider Internal Medicine
DX: I10 Essential (primary) hypertension (principal); Z00.00 Encounter for general adult medical examination without abnormal findings; Z87.42 Personal history of other diseases of the female genital tract
CPT/HCPCS: 99213

== ENCOUNTER 2023-09-25 06:24 | Day surgery (SDC) | payer OTHER, SELFPAY ==
[2023-09-21 13:09] VITALS: BMI 48.4
--- NOTE | 2023-09-22 11:44 | HO.ANESPROP2 ---
Documented by User: Jodie Zapata NP 09/22/23 11:44 HPI - Anesthesia Eval Consult details Narrative: 48yo F for Colonoscopy PMFSH Active Problems Active Problems: All Active Problems (Updated 10/11/21 @ 08:21 by Francoise Solares MD) Encounter for screening colonoscopy (Acute) History of irregular menstrual cycles (Acute) Encounter for gynecological examination with Papanicolaou smear of cervix (Acute) Obesity, morbid, BMI 40.0-49.9 (Acute) Asymptomatic microscopic hematuria (Acute) Knee pain, left (Acute) HTN (hypertension) (Acute) Irregular menses (Acute) Anxiety (Acute) Enlarged thyroid (Acute) Grieving (Acute) Overweight (Acute) Normal pelvic exam (Acute) Annual physical exam (Acute) Hx of cholecystectomy (Acute) S/P knee surgery (Acute) Past Medical History Medical History HTN (hypertension) Irregular menses Anxiety Enlarged thyroid Grieving Overweight Normal pelvic exam Annual physical exam Family History Family History Father HTN (hypertension) DM (diabetes mellitus) Mother HTN (hypertension) Stroke Surgical History Surgical History Hx of cholecystectomy S/P knee surgery Social History Social History Household Members Other:: , no children, work at [employer], Housing: House Patient Tobacco Use Status: Never used Tobacco Second Hand Smoke Exposure: Yes Are you DNR?: No Advance Directives: No Advance Directives Information Provided: Yes service: No Current occupational status: employed Cognitive needs: No Hearing needs: No Vision needs: No Meds Allergies Allergy/AdvReac Type Severity Reaction Status Date / Time amlodipine AdvReac Intermediate cough Verified 09/04/23 08:51 cephalexin [From Keflex] AdvReac Rash Verified 09/04/23 08:51 Penicillins AdvReac Rash Verified 09/04/23 08:51 Sulfa (Sulfonamide AdvReac Rash Verified 09/04/23 08:51 Antibiotics) Exam Height,Weight and Vital Signs: Height 5 ft 1 in Weight 116.12 kg Assessment and Plan Assessment Anesthesia Assessment: Chart Reviewed Documented by User: Brie Puga MD 09/25/23 07:46 PMFSH Past Medical History Medical History HTN (hypertension) Irregular menses Anxiety Enlarged thyroid Grieving Overweight Normal pelvic exam Annual physical exam Family History Family History Father HTN (hypertension) DM (diabetes mellitus) Mother HTN (hypertension) Stroke Surgical History Surgical History Hx of cholecystectomy S/P knee surgery History of Problems with Anesthesia: No Social History Social History Household Members Other:: , no children, work at [employer], Housing: House Patient Tobacco Use Status: Never used Tobacco Second Hand Smoke Exposure: Yes Are you DNR?: No Advance Directives: No Advance Directives Information Provided: Yes service: No Current occupational status: employed Cognitive needs: No Hearing needs: No Vision needs: No Meds Allergies Allergy/AdvReac Type Severity Reaction Status Date / Time amlodipine AdvReac Intermediate cough Verified 09/04/23 08:51 cephalexin [From Keflex] AdvReac Rash Verified 09/04/23 08:51 Penicillins AdvReac Rash Verified 09/04/23 08:51 Sulfa (Sulfonamide AdvReac Rash Verified 09/04/23 08:51 Antibiotics) Exam Airway Mallampati Class: III TM Dist: >3cm Neck ROM: Full Loose/Missing/Broken Teeth: No Heart: RRR Lungs: CTA Assessment and Plan Assessment Anesthesia Assessment: Anesthesia Plan Discussed Final Anesthetic Review History of Problems with Anesthesia: No NPO: Yes ASA Class: III Final Preanesthetic Review: Meds/Allgs Chart Reviewed, Consent Obtained/Reviewed and Anes Risks/Benef Reviewed Patient Risk: Intermediate Procedure Risk: Low Anesthetic Plan Anesthetic Plan: MAC: Disposition: Standard PACU
[2023-09-25 07:13] VITALS: BMI 47.5
[2023-09-25 07:30] VITALS: BP 131/80; PULSE 83; RESP 20; TEMP 36.6; O2SAT 97
--- NOTE | 2023-09-25 08:30 | MHC.SHP ---
Pre-Procedural Eval Section A Date of Service: 09/25/23 The patient is an INPATIENT: No The History & Physical has been completed within 30 days and I have reviewed it.: No Section B Chief Complaint: Colon cancer screening Relevant Family History (Specify if Yes): No Relevant Social History: None Present Medications: see Short Stay Collaborative assessment Medical History: Significant History (Anxiety Enlarged thyroid Grieving HTN (hypertension) Irregular menses ) History of Previous Operations: Relevant previous surgery/procedure and date(s) (Hx of cholecystectomy S/P knee surgery) Allergies: Allergies Allergy/AdvReac Type Severity Reaction Status Date / Time amlodipine AdvReac Intermediate cough Verified 09/04/23 08:51 cephalexin [From Keflex] AdvReac Rash Verified 09/04/23 08:51 Penicillins AdvReac Rash Verified 09/04/23 08:51 Sulfa (Sulfonamide AdvReac Rash Verified 09/04/23 08:51 Antibiotics) Review of Systems Sugical H&P ROS: Negative: Constitution, Cardiovascular, Respiratory and Gastrointestinal Exam Surgical H&P Exam: Normal: Heart, Normal: Lungs, Normal: Extremities and Normal: Abdomen Plan Diagnosis/Plan: Unchanged I have reviewed the history and physical and performed a pertinent physical examination on my patient. No changes have occurred unless specified. Time Spent With Patient Time: Total time managing care of this patient today ____ minutes.
--- NOTE | 2023-09-25 08:41 | W.PM.OPN ---
Operative Note Operative Note Date of Service: 09/25/23 Narrative: COLONOSCOPY TILL CECUM WITH SNARE POLYPECTOMY Pre-op diagnosis: Colon cancer screening (1st colonoscopy) Post-op diagnosis:? Colon polyp, diverticulosis Endoscopist:? Felipe Ling MD Anesthesia:?MAC Consent: Indications for the procedure and potential complications of bleeding, perforation, reaction to medications and missed diagnosis were discussed with the patient and informed consent was obtained. Instrument: Olympus PCF H 190 L variable stiffness pediatric colonoscope Monitoring: Vital signs and clinical assessment, intermittent blood pressure monitoring, continuous EKG monitoring, Pulse oximetry and Carbon Dioxide monitoring were done throughout the procedure. Please see anesthesia flowsheet. Colon withdrawl time was 18 minutes. Procedure: The patient was placed in the left lateral decubitis position and pre-procedure medications were administered. After a digital rectal examination of the ano-rectum, the video colonoscope was inserted into the rectum and advanced through the colon to the cecum. The colonoscope was slowly withdrawn in a retrograde panoramic fashion and the colon mucosa was carefully examined including a retroflexed view of the rectum. Findings and interventions are described below. Procedure Difficulty: Without difficulty Findings: Terminal Ileum: Not evaluated Cecum: A 10-12 mm sessile polyp adjacent to appendiculr orifice - removed with a cold snare Ascending Colon: Normal Transverse Colon: Normal Descending Colon: Moderate diverticulosis Sigmoid Colon: Moderate diverticulosis Rectum: Normal Ano-rectum: Normal Colon preparation: Excellent [place] Bowel Preparation Scale Right colon; 3 Transverse colon: 3 Left colon; 3 (0 = Unprepared colon segment with mucosa not seen due to solid stool that cannot be cleared. 1 = Portion of mucosa of the colon segment seen, but other areas of the colon segment not well seen due to staining, residual stool and/or opaque liquid. 2 = Minor amount of residual staining, small fragments of stool and/or opaque liquid, but mucosa of colon segment seen well. 3 = Entire mucosa of colon segment seen well with no residual staining, small fragments of stool or opaque liquid) Impression and Post Procedure Diagnosis: Colonoscopy Findings: One medium sized polyp removed Moderate diverticulosis seen in the left colon Plan: Await pathology results Patient has an appointment on 10/25/23 in the GI Clinic with LISA Swan. Repeat Colonoscopy interval based on path results - in 3-5 years if polyps are adenomatous and 10 years if polyps are hyperplastic. Above findings were reviewed with the patient and colon polyps and diverticulosis handouts were given in the discharge area
[2023-09-25 09:15] VITALS: BP 115/61; PULSE 88; RESP 18; TEMP 37.2; O2SAT 99
[2023-09-25 09:30] VITALS: BP 112/87; PULSE 77; RESP 16; TEMP 36.6; O2SAT 98
== END 2023-09-25 09:50 | disposition home or self-care (01) ==
PROVIDERS: PCP Internal Medicine; Visit Provider Internal Medicine Gastroenterology
PROC: 0DJD8ZZ Inspection of Lower Intestinal Tract, Via Natural or Artificial Opening Endoscopic (ICD-10-PCS; CPT 45378; principal; 2023-09-25 08:30)
DX: Z12.11 Encounter for screening for malignant neoplasm of colon (principal); D12.0 Benign neoplasm of cecum; K57.30 Diverticulosis of large intestine without perforation or abscess without bleeding; I10 Essential (primary) hypertension; E04.9 Nontoxic goiter, unspecified; F41.9 Anxiety disorder, unspecified; F43.21 Adjustment disorder with depressed mood; E66.01 Morbid (severe) obesity due to excess calories; Z68.42 Body mass index [BMI] 45.0-49.9, adult; Z88.0 Allergy status to penicillin; Z88.1 Allergy status to other antibiotic agents; Z88.2 Allergy status to sulfonamides; Z88.8 Allergy status to other drugs, medicaments and biological substances
CPT/HCPCS: 45385; 81025; 88305; J2704

== ENCOUNTER → 2023-09-25 06:24 | Outpatient (BNV) | payer OTHER, SELFPAY | PROVIDERS: PCP Internal Medicine; Visit Provider Internal Medicine Gastroenterology | DX: Z12.11 Encounter for screening for malignant neoplasm of colon (principal); D12.0 Benign neoplasm of cecum; K57.30 Diverticulosis of large intestine without perforation or abscess without bleeding | CPT/HCPCS: 45385 ==

== ENCOUNTER 2023-10-25 08:14 | Outpatient (AMB) | payer OTHER, SELFPAY ==
--- NOTE | 2023-10-25 08:22 | A.OFFVIS_ITS ---
Intake Vital Signs 10/25/23 08:31 Height 5 ft 1 in Weight 114 lb 4 oz BMI 21.6 BP 160/100 H Blood Pressure Location Lt brachial Position Sitting Pulse 61 Pulse Oximetry (%) 95 Intake Visit Reasons: s/p colon Intake Note: Patient is seen in office for post op assessment post colonoscopy. Pt c/o: no concerns at the time of visit Op:09/25/23 Internist Medical Doctor Md Required: No Accompanied by: Spouse Allergies amlodipine Adverse Reaction (Intermediate, Verified 10/25/23 08:32) cough cephalexin [From Keflex] Adverse Reaction (Verified 10/25/23 08:32) Rash Penicillins Adverse Reaction (Verified 10/25/23 08:32) Rash Sulfa (Sulfonamide Antibiotics) Adverse Reaction (Verified 10/25/23 08:32) Rash Medication List - Last Reconciled 10/25/23 by Shirin Burgos PA-C medroxyprogesterone (Provera) 10 mg PO DAILY misoprostol 200 mcg vaginal ONCE HPI HPI Comments History of Present Illness Details A 48 y/o female f/u after index screening colonoscopy-she had vomiting with miralax prep- but admits she was very nervous-also has episodes of anxiety her blood pressure is associated-she is just taken her medications She also has anxiety today discussing life stresses. BP is elevated, no complaints of headache chest pain shortness of breath- Her appetite is good, she has normal bowel pattern Reviewed procedure report pathology and recommendation No nausea, vomiting fever chills PFSH Medical History (Updated 10/25/23 @ 08:23 by Shirin Burgos PA-C) HTN (hypertension) Irregular menses Anxiety Enlarged thyroid Grieving Overweight Normal pelvic exam Annual physical exam Surgical History Hx of colonoscopy Hx of cholecystectomy S/P knee surgery Family History Father HTN (hypertension) DM (diabetes mellitus) Mother HTN (hypertension) Stroke Social History Household Members Other:: , no children, work at [employer], Housing: House Patient Tobacco Use Status: Never used Tobacco Second Hand Smoke Exposure: Yes service: No Current occupational status: employed Cognitive needs: No Hearing needs: No Vision needs: No Review of Systems Const All systems reviewed & are unremarkable except as noted in HPI and below Card Denies chest pain, Denies chest pain with activity and Denies dyspnea Resp Denies dyspnea GI Denies abdominal pain, Denies change in bowel habits, Denies nausea and Denies vomiting Musc Details: Chronic knee pain Reports abnormal gait Neuro Reports abnormal gait Psych Reports anxiety Physical Exam Vital Signs: Last Vital Signs Pulse 61 10/25/23 08:31 BP 160/100 H 10/25/23 08:31 Pulse Ox 95 10/25/23 08:31 BMI result Body Mass Index 21.6 Eyes Sclerae: sclerae normal Resp Effort & Inspection: normal respiratory effort and able to speak in complete sentences Skin General skin exam: no rashes or lesions noted Results Reviewed Results Reviewed: mpression and Post Procedure Diagnosis: Colonoscopy Findings: One medium sized polyp removed Moderate diverticulosis seen in the left colon Plan: Await pathology results Patient has an appointment on 10/25/23 in the GI Clinic with LISA wSan. Repeat Colonoscopy interval based on path results - in 3-5 years if polyps are adenomatous and 10 years if polyps are hyperplastic. Above findings were reviewed with the patient and colon polyps and diverticulosis handouts were given in the discharge area Surgical Pathology [id number] Name: Martha Nelson Age/Sex: 48/F Attending: Felipe Ling MD : 1975 Submitted by: Felipe Ling MD Copies to: Francoise Solares MD MR #: [id number] Status: [facility] Collected: 09/25/23 Location: [facility] Received: 09/25/23 Diagnosis Colon, cecal polyp: Tubular adenoma; negative for high-grade dysplasia and carcinoma. Clinical History Pre-Op Dx: Screening Post-Op Dx: Colon polyp, diverticulosis Microscopic Description Microscopic sections reviewed. Material Received Polyp cecum Gross Description Received in formalin labeled ?polyp cecum? are 2 carson irregular and papular tissue fragments measuring 0.25 and 0.3 cm, submitted in toto in a cassette labeled A. CEDS Copies To Francoise Solares MD [address] [place] [address] Dr. Nereida [place] [id number] Felipe Ling MD [address] [place] [address] Dr. Leeanne [place] [id number] NOTE: Unless otherwise stated, all tissue is formalin-fixed and paraffin- embedded. Some or all of the immunohistochemical tests reported herein may have been developed and their performance characteristics determined by [facility]. They have not been cleared or approved by the U.S. Food and Drug Administration (FDA). However, the FDA has determined that such clearance or approval is not necessary. This laboratory is certified under the Clinical Laboratory Improvement Amendments of 1988 (CLIA) as qualified to perform high complexity clinical laboratory testing. Electronically Signed By: Sandi Sadler 09/26/23 1404 Patient: Martha Nelson Age/Sex: 48/F MR#: [id number] Page 1 of 1 Assessment & Plan Assessment & Plan (1) Diverticulosis of colon: Code(s): K57.30 - Diverticulosis of large intestine without perforation or abscess without bleeding Plan: Maintain high-fiber diet ER protocol (2) Tubular adenoma: Code(s): D36.9 - Benign neoplasm, unspecified site Plan: Repeat asymptomatic colonoscopy 3 years All first-degree relatives begin screening at age 30 Plan 3 years-reminder adenoma AFDR begin screening @ age 36 Diverticulosis/diverticulitis ER protocol Maintain high-fiber diet Patient Instructions: Very pleasant 48-year-old female follows up after index screening colonoscopy with polypectomy Reviewed procedure report, pathology and recommendation Opportunity for questions 3 years-reminder to be placed for adenoma AFDR begin screening @ age 36 Diverticulosis/diverticulitis ER protocol Stress reduction, monitor blood pressure Maintain high-fiber diet Encouraged to call with any questions or concerns Coding Level of Care Code Est Pt Level 3 (08820) Diagnoses Diverticulosis of colon K57.30 Tubular adenoma D36.9 Time Spent (min) 20
[2023-10-25 08:31] VITALS: BP 160/100; PULSE 61; O2SAT 95; BMI 21.6
== END 2023-10-25 09:11 | disposition home or self-care (01) ==
PROVIDERS: PCP Internal Medicine; Visit Provider Physician Assistant
DX: K57.30 Diverticulosis of large intestine without perforation or abscess without bleeding (principal); D36.9 Benign neoplasm, unspecified site
CPT/HCPCS: 99213

== ENCOUNTER → 2023-10-25 08:14 | Outpatient (BNVA) | payer OTHER, SELFPAY | PROVIDERS: PCP Internal Medicine; Visit Provider Physician Assistant ==

== ENCOUNTER 2023-11-30 08:45 | Outpatient (REF) | payer OTHER, SELFPAY ==
--- NOTE | ~2023-11-30 | MM_ITS ---
EXAMINATION: MM SCREENING DIGITAL BREAST TOMOSYNTHESIS, BILATERAL CLINICAL INFORMATION: Screening. Asymptomatic. COMPARISON: Mammography: 11/23/2022, 11/15/2021, outside mammography 08/29/2017 ([facility]). TECHNIQUE: Digital breast tomosynthesis is performed in both the craniocaudal and mediolateral oblique views along with computer-aided detection (CAD). Synthesized 2D images are generated from the tomosynthesis. An added full-field left MLO was provided for anterior compression. FINDINGS: The breasts are almost entirely fatty (ACR BI-RADS breast composition Category a). There are no significant masses, abnormal calcifications, or other abnormalities. Parenchymal pattern is unchanged from prior exams. No skin or axillary abnormalities. MM/MM tomosynthesis screening BI IMPRESSION: No mammographic evidence of malignancy. ASSESSMENT: BI-RADS BI-RADS 1 - Negative RECOMMENDATION: Routine annual mammography screening. 1 year F/U This examination should not preclude the clinical evaluation of a suspicious palpable abnormality. This patient's information was entered into a reminder system with a target due date for their next mammogram.
== END 2023-11-30 08:46 | disposition home or self-care (01) ==
LOC: HO.MAMMO 08:45
PROVIDERS: PCP Internal Medicine; Visit Provider Internal Medicine
DX: Z12.31 Encounter for screening mammogram for malignant neoplasm of breast (principal)
CPT/HCPCS: 77063; 77067

== ENCOUNTER → 2023-11-30 09:00 | Outpatient (BNV) | payer OTHER, SELFPAY | PROVIDERS: PCP Internal Medicine; Visit Provider Radiology Diagnostic Radiology | DX: Z12.31 Encounter for screening mammogram for malignant neoplasm of breast (principal) | CPT/HCPCS: 77063; 77067 ==

== ENCOUNTER 2024-01-08 07:40 | Outpatient (REF) | payer SELFPAY ==
[2024-01-08 10:20] LABS: MANUAL DIFF FLAG NO
[2024-01-08 10:33] LABS: Basophils Absolute Auto 0.1 X10*3/uL (0.0-0.2); Basophils Percent Auto 0.8 % (0-2); Eosinophils Absolute Auto 0.4 X10*3/uL (0.0-0.4); Eosinophils Percent Auto 6.3 % (0-4); Hematocrit 44.1 % (37.0-47.0); Hemoglobin 13.8 g/dl (12.0-16.0); Imm Gran Abs Auto 0.02 X10*3/uL (0.00-0.03); Imm Gran Pct Auto 0.3 % (0.0-0.4); Lymphocytes Absolute Auto 1.5 X10*3/uL (1.2-4.9); Lymphocytes Percent Auto 24.3 % (20-40); Mean Corpuscular HGB Conc 31.3 g/dl (31.0-35.0); Mean Corpuscular Hemoglobin 31.1 pg (27.0-33.0); Mean Corpuscular Volume 99.3 fL (80.0-98.0); Mean Platelet Volume 10.5 fL (9.4-12.3); Monocytes Absolute Auto 0.5 X10*3/uL (0.1-1.2); Monocytes Percent Auto 7.9 % (2-11); Neutrophils Absolute Auto 3.6 x10*3/uL (2.0-8.3); Neutrophils Percent Auto 60.4 % (45-73); Platelet Count 229 X10*3/uL (160-400); Red Blood Count 4.44 X10*6/uL (4.20-5.50); Red Cell Distribution Width 13.4 % (11.0-16.0)
[2024-01-08 11:01] LABS: Alanine Aminotransferase 22 U/L (0-31); Albumin Level 3.8 g/dL (3.5-5.0); Alkaline Phosphatase 87 U/L (39-117); Anion Gap 11 (12-20); Aspartate Amino Transferase 18 U/L (5-31); Bilirubin Total 0.4 mg/dL (0.0-1.0); Blood Urea Nitrogen 13 mg/dL (9-16); Calcium 9.4 mg/dL (8.4-10.2); Carbon Dioxide 26 mmol/L (22-29); Chloride 107 mmol/L (96-108); Cholesterol 151 mg/dL (<200); Estimated Glomerular Filt Rate > 60; Glucose Fasting 95 mg/dL (60-99); HDL Cholesterol 53 mg/dL (>40); LDL Cholesterol Calculated 81 mg/dL (<100); Potassium 4.9 mmol/L (3.3-5.1); Sodium 139 mmol/L (135-145); Total Protein 7.3 g/dL (6.5-8.0); Triglycerides 87 mg/dL (<150)
== END 2024-01-08 07:41 | disposition home or self-care (01) ==
LOC: HO.HMGCLDS 07:40
PROVIDERS: PCP Internal Medicine; Visit Provider Internal Medicine
DX: Z00.00 Encounter for general adult medical examination without abnormal findings (principal); I10 Essential (primary) hypertension
CPT/HCPCS: 36415; 80053; 80061; 84443; 85025

== ENCOUNTER 2024-01-11 11:15 | Outpatient (AMB) | payer OTHER, SELFPAY ==
[2024-01-11 11:55] VITALS: BP 128/80; PULSE 64; O2SAT 97; BMI 48.2
--- NOTE | 2024-01-11 11:55 | MHC.PC.OV ---
Vital Signs 01/11/24 11:55 Height 5 ft 1 in Weight 255 lb BMI 48.2 BP 128/80 Blood Pressure Location Lt brachial Position Sitting Pulse 64 Pulse Source Pulse Oximeter Pulse Oximetry (%) 97 Oxygen Delivery Method Room Air Intake Visit Reasons: Annual PE Allergies amlodipine Adverse Reaction (Intermediate, Verified 10/25/23 08:32) cough cephalexin [From Keflex] Adverse Reaction (Verified 10/25/23 08:32) Rash Penicillins Adverse Reaction (Verified 10/25/23 08:32) Rash Sulfa (Sulfonamide Antibiotics) Adverse Reaction (Verified 10/25/23 08:32) Rash Medication List - Last Reconciled 01/11/24 by Francoise Solares MD medroxyprogesterone (Provera) 10 mg PO DAILY misoprostol 200 mcg vaginal ONCE terbinafine HCl mg PO Tobacco use date assessed: 01/11/24 Dental Screening Dental Screen Date: 01/11/24 Did you have a dental visit in the last 12 months?: Yes Did you have a dental problem in the last 6 months where you did not have access to dental care?: No Was dental information given to patient?: Patient has dentist HPI Annual PE HPI Details Patient presents for a physical. Hypertension is controlled on bisoprolol. Patient reports persistent fullness sensation in the back of her throat on and off worse when swallowing. She denies coughing while swallowing odynophagia or dysphagia. Patient had negative thyroid ultrasound 2 years ago. She denies postnasal drip or heartburn. [facility] Medical History (Updated 01/11/24 @ 15:11 by Francoise Solares MD) HTN (hypertension) Irregular menses Anxiety Enlarged thyroid Grieving Overweight Normal pelvic exam Annual physical exam Surgical History Hx of colonoscopy Hx of cholecystectomy S/P knee surgery Family History Father HTN (hypertension) DM (diabetes mellitus) Mother HTN (hypertension) Stroke Social History Household Members Other:: , no children, work at [employer], Housing: House Patient Tobacco Use Status: Never used Tobacco Second Hand Smoke Exposure: Yes service: No Current occupational status: employed Cognitive needs: No Hearing needs: No Vision needs: No Questionnaire PHQ-9 Over the last 2 weeks, how often have you been bothered by any of the following problems? 1. Little interest or pleasure in doing things: not at all 2. Feeling down, depressed, or hopeless: several days 3. Trouble falling or staying asleep, or sleeping too much: more than half the days 4. Feeling tired or having little energy: not at all 5. Poor appetite or overeating: nearly every day 6. Feeling bad about yourself - or that you are a failure or have let yourself or your family down: not at all 7. Trouble concentrating on things, such as reading the newspaper or watching television: not at all 8. Moving or speaking so slowly that other people could have noticed. Or the opposite - being so fidgety or restless that you have been moving around a lot more than usual: not at all 9. Thoughts that you would be better off or of hurting yourself in some way: not at all Total score: 6 Depression Screening Interpretation: Negative Depression Screening Done: Yes Source: Developed by Drs. Sridhar Gill, Mercedez Devine, Raheem Horner and colleagues, with an educational brittanie from [employer]. Thrive Questionnaire Date Thrive assessed: 01/11/24 I am a: Patient What is your living situation today?: I have a steady place to live Within the past 12 months, did the food you bought not last and you didn't have the money to get more?: Never true Within the past 12 months, did you worry whether your food would run out before you got money to buy more?: Never true THRIVE Score: 0 AUDIT C Alcohol Use Questionnaire (AUDIT-C) 1. How often do you have a drink containing alcohol?: Monthly or less 2. How many drinks containing alcohol do you have on a typical day when you are drinking?: 1 or 2 3. How often do you have six or more drinks on one occasion?: Never Total Score: 1 CARLOS-7 AMB Questionnaire CARLOS-7 Date CARLOS - 7 assessed: 01/11/24 Feeling nervous, anxious, or on edge: 1 = Several days Not being able to stop or control worryin = Nearly every day Worrying too much about different things: 3 = Nearly every day Trouble relaxin = Not at all Being so restless that it is hard to sit still: 0 = Not at all Becoming easily annoyed or irritable: 1 = Several days Feeling afraid as if something awful might happen: 0 = Not at all Total CARLOS-7 score (0-4 normal; 5-9 mild; 10-14 moderate; 15-21 severe): 8 Source: Developed by Drs. Sridhar Gill, Mercedez Devine, Raheem Horner and colleagues, with an educational brittanie from [employer]. Review of Systems Const All systems reviewed & are unremarkable except as noted in HPI and below Eyes Reports no additional complaints ENT Reports no additional complaints Card Reports no additional complaints Resp Reports no additional complaints GI Reports no additional complaints Reports no additional complaints Musc Reports no additional complaints Physical exam (Primary Care) Vital Signs: Last Vital Signs Pulse 64 01/11/24 11:55 BP 128/80 01/11/24 11:55 Pulse Ox 97 01/11/24 11:55 Oxygen Delivery Method Room Air 01/11/24 11:55 BMI result Body Mass Index 48.2 Tobacco/Smoking Status: Tobacco use Status Tobacco use date assessed 01/11/24 01/11/24 12:01 Patient Tobacco Use Status Never used Tobacco 01/11/24 12:01 PHQ-9: PHQ-9 Score PHQ-9: Total score 6 01/11/24 12:29 Depression Screening Interpretation: Negative Thrive Assessment: Date of Thrive Assessment Date Thrive assessed 01/11/24 01/11/24 12:03 Const General: no acute distress HENMT Head: Yes normal to inspection Mouth: Normal oral and palatal mucosa present Eyes General: appearance normal, both eyes and all related structures Neck Neck: Yes no lymphadenopathy and Yes supple Resp Effort & Inspection: normal respiratory effort Auscultation: clear to auscultation bilaterally Cardio Rhythm: regular rhythm Heart sounds: S1 normal heart sound present and S2 normal heart sound present GI Inspection: Yes normal to inspection Palpation (GI): Soft to palpation Percussion: Yes normal to percussion Auscultation: normal bowel sounds Assessment and Plan Assessment & Plan (1) Oropharyngeal dysphagia: Code(s): R13.12 - Dysphagia, oropharyngeal phase Plan: For persistent sensation of a fullness in posterior throat patient will be referred to ENT for evaluation (2) Annual physical exam: Code(s): Z00.00 - Encounter for general adult medical examination without abnormal findings Plan: Well-balanced diet regular physical activity weight loss discussed with the patient. She is up-to-date with colonoscopy mammogram and Pap smear by [facility] (3) Obesity, morbid, BMI 40.0-49.9: Code(s): E66.01 - Morbid (severe) obesity due to excess calories Plan: Weight loss discussed with the patient (4) Enlarged thyroid: Comment: Normal thyroid ultrasound 09/2021 Code(s): E04.9 - Nontoxic goiter, unspecified (5) HTN (hypertension): Code(s): I10 - Essential (primary) hypertension Plan: Continue bisoprolol Orders: Orders Comprehensive [place]. Panel Fast 1 Year Z00.00 - Encounter for general adult medical examination without abnormal findings TSH reflex Free T4 1 Year Z00.00 - Encounter for general adult medical examination without abnormal findings Vitamin D 25-OH Total 1 Year Z00.00 - Encounter for general adult medical examination without abnormal findings Lipid Panel 1 Year Z00.00 - Encounter for general adult medical examination without abnormal findings Complete Blood Count Auto Diff 1 Year Z00.00 - Encounter for general adult medical examination without abnormal findings Referrals Ear/Nose/Throat Referral R13.12 - Dysphagia, oropharyngeal phase Medications: New bisoprolol fumarate 5 mg PO DAILY 90 tabs 3RF Discontinued medroxyprogesterone (Provera) take as discussed for absence of menses Discontinued Reason: Doctor's Order 10 mg PO DAILY [address] in vagina within 4 hours prior to planned IUD procedure Discontinued Reason: Doctor's Order 200 mcg vaginal ONCE 1 tab 0RF Coding Level of Care Code Est Pt Prev Care 40-64y(12813) Diagnoses Oropharyngeal dysphagia R13.12 Annual physical exam Z00.00 Obesity, morbid, BMI 40.0-49.9 E66.01 Enlarged thyroid E04.9 HTN (hypertension) I10
== END 2024-01-11 13:09 | disposition home or self-care (01) ==
PROVIDERS: Visit Provider Internal Medicine
DX: Z00.00 Encounter for general adult medical examination without abnormal findings (principal); E66.01 Morbid (severe) obesity due to excess calories; Z68.42 Body mass index [BMI] 45.0-49.9, adult; R13.12 Dysphagia, oropharyngeal phase; E04.9 Nontoxic goiter, unspecified; I10 Essential (primary) hypertension
CPT/HCPCS: 99396

== ENCOUNTER 2024-05-01 13:49 | Outpatient (AMB) | payer OTHER, SELFPAY ==
[2024-05-01 13:53] VITALS: BP 128/84; PULSE 102; TEMP 36.9; O2SAT 97; BMI 49.9
--- NOTE | 2024-05-01 13:53 | AM.OFFWIN_ITS ---
Intake Vital Signs 05/01/24 13:53 Height 5 ft 1 in Weight 264 lb BMI 49.9 BP 128/84 Blood Pressure Location Rt brachial Position Sitting Pulse 102 H Pulse Source Pulse Oximeter Temp 98.4 F Temp Source Oral Pulse Oximetry (%) 97 Oxygen Delivery Method Room Air Intake Visit Reasons: Lft Knee Pain Intake Note: pt c/o LT knee pain. Ongoing for a while. Pops when walking. Can't bend. Tripped over cat 3 weeks ago Patient Tobacco Use Status: Never used Tobacco Allergies amlodipine Adverse Reaction (Intermediate, Verified 05/01/24 13:53) cough cephalexin [From Keflex] Adverse Reaction (Verified 05/01/24 13:53) Rash Penicillins Adverse Reaction (Verified 05/01/24 13:53) Rash Sulfa (Sulfonamide Antibiotics) Adverse Reaction (Verified 05/01/24 13:53) Rash Do you need a note to return to daycare/school/sports/work: No HPI Lft Knee Pain HPI Details This note is constructed using voice recognition software. While every effort has been made to ensure accuracy, president and chief executive officer errors may have been included. The patient is a 49 year old female who presents to the clinic today with left knee pain for the last 3 weeks after tripping over an animal. She notes that at age 16 she had a surgery to clean out behind her patella, and since then she has had trouble with her knee. She notes that she has been told by her primary care provider to lose weight to help facilitate with knee pain, which she is attempting to do. Unfortunately the pain is both acute and chronic, and she herself is having difficulty identifying the difference between the 2. She is trying to swim in a swimming pool that she had purchased over this summer, but even swimming in the swimming pool is not helping. She has tried ice, Ankit wrap, and elevation without effect either. She is hopeful to see an orthopedist, however referral has not yet been placed by her primary care provider, and she is looking forward to asking for that referral soon. [facility] Medical History (Updated 05/01/24 @ 14:34 by Rosina Wallace NP) HTN (hypertension) Irregular menses Anxiety Enlarged thyroid Grieving Overweight Normal pelvic exam Annual physical exam Surgical History Hx of colonoscopy Hx of cholecystectomy S/P knee surgery Family History Father HTN (hypertension) DM (diabetes mellitus) Mother HTN (hypertension) Stroke Social History Household Members Other:: , no children, work at [employer], Housing: House Patient Tobacco Use Status: Never used Tobacco Second Hand Smoke Exposure: Yes service: No Current occupational status: employed Cognitive needs: No Hearing needs: No Vision needs: No Review of Systems Const All systems reviewed & are unremarkable except as noted in HPI and below Physical Exam Vital Signs: Last Vital Signs Temp 98.4 F 05/01/24 13:53 Pulse 102 H 05/01/24 13:53 BP 128/84 05/01/24 13:53 Pulse Ox 97 05/01/24 13:53 Oxygen Delivery Method Room Air 05/01/24 13:53 BMI result Body Mass Index 49.9 Const General: cooperative, healthy appearing, comfortable, no acute distress and alert Orientation/consciousness: patient oriented x3 Limitations: no limitations Skin General skin exam: no rashes or lesions noted, elasticity normal and turgor normal Neuro General: patient oriented x3 Extrem Other: Mild crepitus in left knee with lateral tenderness on valgus movement. OTherwise FROM. No echymosis, erythema or warmth. Intact distal neurovascular exam. Psych Appearance: grossly normal Mental Status: mental status grossly normal Speech and movement: Normal speech and movement present Affect: normal affect Assessment & Plan Assessment & Plan (1) Knee pain, left: Comment: chronic, hx of surgery Code(s): M25.562 - Pain in left knee Qualifiers: Chronicity: unspecified Qualified Code(s): M25.562 - Pain in left knee Plan: Acute on chronic knee pain of the left. Imaging ordered given recent trip over animal to rule out fracture, however given physical examination in his highly unlikely. Advised patient to continue with her methods at home including rest, ice, compression, elevation, and NSAIDs for pain management. She may follow with her primary care provider, and may benefit from referral to Orthopedics for consideration of treatment of chronic pain. Plan See above for full details and plan. Orders: Orders XR knee LT 2V Today M25.562 - Pain in left knee Coding Level of Care Code Est Pt Level 4 (39818) Diagnoses Left knee pain, unspecified chronicity M25.562 Chronicity: unspecified
== END 2024-05-01 14:53 | disposition home or self-care (01) ==
PROVIDERS: PCP Internal Medicine; Visit Provider Registered Nurse
DX: M25.562 Pain in left knee (principal)
CPT/HCPCS: 99214

== ENCOUNTER 2024-05-01 14:31 | Outpatient (REF) | payer OTHER, SELFPAY ==
--- NOTE | ~2024-05-01 | XR_ITS ---
EXAMINATION: XR KNEE, LEFT CLINICAL INFORMATION: Left knee pain. COMPARISON: None available. TECHNIQUE: Four views of the left knee. FINDINGS: Alignment is anatomic. Moderate medial tibiofemoral and patellofemoral cartilage space loss marginal osteophytes. No significant joint effusion. XR/XR knee LT 2V IMPRESSION: Moderate osteoarthritis of the left knee.
[2024-05-01 16:41] LABS: Alanine Aminotransferase 28 U/L (0-31); Alkaline Phosphatase 101 U/L (39-117); Aspartate Amino Transferase 20 U/L (5-31); Bilirubin Direct 0.1 mg/dL (0.0-0.5); Bilirubin Total 0.3 mg/dL (0.0-1.0); Total Protein 7.5 g/dL (6.5-8.0)
== END 2024-05-01 14:32 | disposition home or self-care (01) ==
LOC: HO.HMGCX 14:31
PROVIDERS: PCP Internal Medicine; Referring Provider Podiatrist; Visit Provider Registered Nurse
DX: M25.562 Pain in left knee (principal); B35.1 Tinea unguium
CPT/HCPCS: 36415; 73560; 80076

== ENCOUNTER 2024-06-13 08:46 | Outpatient (AMB) | payer OTHER, SELFPAY ==
--- NOTE | 2024-06-13 08:55 | A.OFFVIS_ITS ---
Vital Signs 06/13/24 09:05 Height 5 ft 1 in Weight 264 lb BMI 49.9 Intake Visit Reasons: New Pt - Left Knee Pain Intake Note: Martha a 49 year old male who presents today for a new patient for an evaluation of left knee pain. Hx of left knee exploratory surgery in 1993 and 1994. Patient reports her pain has been present for a couple of years that has been getting worse. She has sharp pain and popping with bending of her knee making it difficult to walk and use stairs. Her pain is located at the anterior and medial aspect of knee. Denies giving out. No numbness or tingling. No recent tx. Finds no relief with Tylenol or naproxen. She has tried and failed knee braces, wrapping and taping. 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 Allergies amlodipine Adverse Reaction (Intermediate, Verified 06/13/24 09:12) cough cephalexin [From Keflex] Adverse Reaction (Verified 06/13/24 09:12) Rash Penicillins Adverse Reaction (Verified 06/13/24 09:12) Rash Sulfa (Sulfonamide Antibiotics) Adverse Reaction (Verified 06/13/24 09:12) Rash Medication List - Last Reconciled 06/13/24 by Tanisha Frazier PA-C bisoprolol fumarate 5 mg PO DAILY terbinafine HCl mg PO HPI HPI New Pt - Left Knee Pain: Details: 49-year-old female who presents to the office today for an evaluation of left knee pain for about 2 years. She has a history of left knee exploratory surgery in 1993 and in 1994. She states she has worsening sharp pain at the anterior aspect and medial aspect of her left knee that is aggravated with bending and stair use. She also reports popping in her knee with bending. She denies any numbness, tingling, or knee giving out. She has not had any recent treatment. She finds no relief with Tylenol or naproxen. She has tried knee braces, wrapping and taping with no relief. She does not have a history of diabetes. 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 [facility] Medical History (Updated 06/13/24 @ 09:18 by Tanisha Frazier PA-C) HTN (hypertension) Irregular menses Anxiety Enlarged thyroid Grieving Overweight Normal pelvic exam Annual physical exam Surgical History (Updated 06/13/24 @ 09:01 by JAVIER Oliveira) Hx of colonoscopy Hx of cholecystectomy S/P knee surgery Family History Father HTN (hypertension) DM (diabetes mellitus) Mother HTN (hypertension) Stroke Social History (Updated 06/13/24 @ 09:12 by JAVIER Oliveira) Household Members Other:: , no children, work at [employer], Housing: House Patient Tobacco Use Status: Never used Tobacco Second Hand Smoke Exposure: Yes service: No Current occupational status: employed Current occupation: [employer] Cognitive needs: No Hearing needs: No Vision needs: No Review of Systems Const All systems reviewed & are unremarkable except as noted in HPI and below Physical Exam Vital Signs: BMI result Body Mass Index 49.9 Const General: cooperative, healthy appearing, comfortable, no acute distress, well developed and alert Orientation/consciousness: patient oriented x3 HEENT Head: Yes normal to inspection, Yes normocephalic and Yes atraumatic Eyes General: appearance normal, both eyes and all related structures Resp Effort & Inspection: normal respiratory effort and able to speak in complete sentences Cardio Rate: regular rate Peripheral pulses: Peripheral pulses 2+ throughout GI Palpation (GI): Soft to palpation Skin Lesions: no lesions Rashes: no rashes Neuro General: patient oriented x3 Extrem Other: Left knee: Skin intact, no erythema or joint effusion. Tenderness along the medial and lateral joint line. Full ROM with crepitus. Negative Trip?s. No ligamentous laxity. NVI. ? Results Reviewed Results Reviewed: XR knee LT 2V IMPRESSION: Moderate osteoarthritis of the left knee. Assessment & Plan Assessment & Plan (1) Osteoarthritis of left knee: Code(s): M17.12 - Unilateral primary osteoarthritis, left knee Category: Medical Plan We discussed options today, which include steroid injection. The patient did consent to move forward with the left knee injection, which was tolerated well. I recommended rest, ice, and elevation and OTC anti-inflammatories as needed for discomfort. She was fit for a knee brace today. If symptoms persist or worsen over the next 6-8 weeks, patient will contact the office, otherwise follow-up as needed. ? Orders: Orders PT Evaluation and Treatment Today M17.12 - Unilateral primary osteoarthritis, left knee Patient Instructions: Scribed for Tanisha Frazier PA-C, by Danish Alvarez, medical coding specialist, on 06/13/2024 at 9:00 AM EST.? I, Tanisha Frazier PA-C, have personally reviewed and agree with the information entered by the scribe. Coding Level of Care Code New Pt Level 3 (82194) Complex EM visit Add On G2211 Diagnoses Osteoarthritis of left knee M17.12
[2024-06-13 09:05] VITALS: BMI 49.9
== END 2024-06-13 09:44 | disposition home or self-care (01) ==
PROVIDERS: PCP Internal Medicine; Visit Provider Physician Assistant
DX: M17.12 Unilateral primary osteoarthritis, left knee (principal)
CPT/HCPCS: 20610; 99203

== ENCOUNTER → 2024-06-13 08:46 | Outpatient (BNVA) | payer OTHER, SELFPAY | PROVIDERS: PCP Internal Medicine; Visit Provider Physician Assistant | DX: M17.12 Unilateral primary osteoarthritis, left knee (principal) | CPT/HCPCS: 20610; J1010 ==

== ENCOUNTER 2024-09-06 11:51 | Outpatient (AMB) | payer OTHER, SELFPAY ==
[2024-09-06 11:53] VITALS: BP 120/74; PULSE 97; O2SAT 96; BMI 50.1
--- NOTE | 2024-09-06 11:53 | MHC.PC.OV ---
Vital Signs 09/06/24 11:53 Height 5 ft 1 in Weight 265 lb BMI 50.1 BP 120/74 Blood Pressure Location Lt brachial Position Sitting Pulse 97 Pulse Source Pulse Oximeter Pulse Oximetry (%) 96 Oxygen Delivery Method Room Air Intake Visit Reasons: hard time swallowing Intake Note: Pt is here today for a sick visit. Pt c/o lump in her throat that causes problem with swallowing. Allergies amlodipine Adverse Reaction (Intermediate, Verified 09/06/24 11:56) cough cephalexin [From Keflex] Adverse Reaction (Verified 09/06/24 11:56) Rash Penicillins Adverse Reaction (Verified 09/06/24 11:56) Rash Sulfa (Sulfonamide Antibiotics) Adverse Reaction (Verified 09/06/24 11:56) Rash Tobacco use date assessed: 09/06/24 Dental Screening Dental Screen Date: 01/11/24 HPI hard time swallowing HPI Details Pt c/o sensation of irritation while swallowing of the right side of her throat, on and off for a few months. She denies odynophagia or dysphagia, heartburn, sore throat, postnasal drip fever or chills. Hypertension is controlled on bisoprolol [facility] Medical History (Updated 09/06/24 @ 12:22 by Francoise Solares MD) HTN (hypertension) Irregular menses Anxiety Enlarged thyroid Grieving Overweight Normal pelvic exam Annual physical exam Surgical History Hx of colonoscopy Hx of cholecystectomy S/P knee surgery Family History Father HTN (hypertension) DM (diabetes mellitus) Mother HTN (hypertension) Stroke Social History Household Members Other:: , no children, work at [employer], Housing: House Patient Tobacco Use Status: Never used Tobacco Second Hand Smoke Exposure: Yes service: No Current occupational status: employed 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 1. Little interest or pleasure in doing things: not at all 2. Feeling down, depressed, or hopeless: not at all 3. Trouble falling or staying asleep, or sleeping too much: not at all 4. Feeling tired or having little energy: not at all 5. Poor appetite or overeating: more than half the days 6. Feeling bad about yourself - or that you are a failure or have let yourself or your family down: not at all 7. Trouble concentrating on things, such as reading the newspaper or watching television: not at all 8. Moving or speaking so slowly that other people could have noticed. Or the opposite - being so fidgety or restless that you have been moving around a lot more than usual: not at all 9. Thoughts that you would be better off or of hurting yourself in some way: not at all Total score: 2 Depression Screening Interpretation: Negative Depression Screening Done: Yes Source: Developed by Drs. Sridhar Gill, Mercedez Devine, Raheem Horner and colleagues, with an educational brittanie from [employer]. Thrive Questionnaire Date Thrive assessed: 09/06/24 I am a: Patient What is your living situation today?: I have a steady place to live Within the past 12 months, did the food you bought not last and you didn't have the money to get more?: Often true Within the past 12 months, did you worry whether your food would run out before you got money to buy more?: Never true Do you have trouble paying for medicines?: No Do you have trouble getting transportation to medical appointments?: No Do you have trouble paying your heating and electricity bill?: No Do you have trouble taking care of your child, family member or friend?: No Do you have trouble with day-to-day activities such as bathing, preparing meals, shopping, managing finances, etc.?: No Are you currently unemployed and looking for a job?: No Are you interested in more education?: No Please select the resources that you would like help with: None Currently or been in a relationship where the following occur: I choose not to answer THRIVE Score: 1 AUDIT C Alcohol Use Questionnaire (AUDIT-C) 1. How often do you have a drink containing alcohol?: Monthly or less Total Score: 1 CARLOS-7 AMB Questionnaire CARLOS-7 Date CARLOS - 7 assessed: 09/06/24 Feeling nervous, anxious, or on edge: 0 = Not at all Not being able to stop or control worryin = Not at all Worrying too much about different things: 0 = Not at all Trouble relaxin = Not at all Being so restless that it is hard to sit still: 0 = Not at all Becoming easily annoyed or irritable: 0 = Not at all Feeling afraid as if something awful might happen: 0 = Not at all Total CARLOS-7 score (0-4 normal; 5-9 mild; 10-14 moderate; 15-21 severe): 0 Source: Developed by Drs. Sridhar Gill, Mercedez Devine, Raheem Horner and colleagues, with an educational brittanie from [employer]. Review of Systems Const All systems reviewed & are unremarkable except as noted in HPI and below Eyes Reports no additional complaints ENT Reports no additional complaints Card Reports no additional complaints Resp Reports no additional complaints GI Reports no additional complaints Reports no additional complaints Physical exam (Primary Care) Vital Signs: Last Vital Signs Pulse 97 09/06/24 11:53 BP 120/74 09/06/24 11:53 Pulse Ox 96 09/06/24 11:53 Oxygen Delivery Method Room Air 09/06/24 11:53 BMI result Body Mass Index 50.1 Tobacco/Smoking Status: Tobacco use Status Tobacco use date assessed 09/06/24 09/06/24 11:58 Patient Tobacco Use Status Never used Tobacco 09/06/24 11:58 PHQ-9: PHQ-9 Score PHQ-9: Total score 2 09/06/24 11:58 Depression Screening Interpretation: Negative Thrive Assessment: Date of Thrive Assessment Date Thrive assessed 09/06/24 09/06/24 11:58 Currently or been in a relationship where the following occur: I choose not to answer Const General: no acute distress HENMT Head: Yes normal to inspection Face and sinus: Yes normal facial exam Throat: Yes abnormal tonsil (Right tonsil is larger compared to left tonsil, no ulceration or discharge) and Yes postnasal drainage Neck Neck: Yes no lymphadenopathy and Yes supple Resp Effort & Inspection: normal respiratory effort Auscultation: clear to auscultation bilaterally Cardio Rhythm: regular rhythm Heart sounds: S1 normal heart sound present and S2 normal heart sound present Coding Level of Care Code Est Pt Level 3 (18744) Diagnoses Oropharyngeal dysphagia R13.12 Enlargement of right palatine tonsil J35.1 HTN (hypertension) I10 Assessment & Plan Assessment & Plan (1) Oropharyngeal dysphagia: Code(s): R13.12 - Dysphagia, oropharyngeal phase Category: Medical Plan: Referred to ENT as soon as possible (2) Enlargement of right palatine tonsil: Code(s): J35.1 - Hypertrophy of tonsils Category: Medical Plan: as above, patient was advised to try saline and Flonase nasal spray and antihistamine for postnasal drip (3) HTN (hypertension): Code(s): I10 - Essential (primary) hypertension Category: Medical Plan: Continue bisoprolol Orders: Referrals Ear/Nose/Throat Referral J35.1 - Hypertrophy of tonsils, R13.12 - Dysphagia, oropharyngeal phase
== END 2024-09-06 12:47 | disposition home or self-care (01) ==
PROVIDERS: PCP Internal Medicine; Visit Provider Internal Medicine
DX: R13.12 Dysphagia, oropharyngeal phase (principal); J35.1 Hypertrophy of tonsils; I10 Essential (primary) hypertension

== ENCOUNTER 2024-11-12 15:00 | Outpatient (RCR) | payer OTHER, SELFPAY ==
--- NOTE | 2024-10-30 14:30 | MHC.PT.EP ---
[facility] [place] Office [place] [facility] [address] Zachary Bahena [address] [phone] F: [phone] F: [phone] F: [phone] F: [phone] Physical Therapy Plan of Care Date of Evaluation: 10/30/24 Date of Surgery: n/a Diagnosis: OA of L knee Assessment: Patient is a 49 year old female presenting to PT with complaints of pain in her L knee. Pt reports onset of pain began a couple years ago due to insidious onset. She presents today with impairments in pain, knee ROM, knee strength, hip strength. 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 Pt expresses group home goal of reducing pain, and is motivated to work towards this in PT. Clinical presentation today is most consistent with signs and sx associated with L knee pain and pt will benefit from skilled PT 2 week x 4 weeks to address the following problems and impairments noted upon evaluation: pain, knee ROM, knee strength, hip strength. These problems limit the patient with the following functional activities: ambulating, ADLs, work, stair negotiation. The prescribed treatment plan of care is medically necessary. Co-morbidities of HTN, anxiety were identified and taken into considerations of plan of care. Pt was educated on HEP, role of PT, prognosis, POC. Frequency and Duration: The patient will be seen 2 x week x 4 weeks Short Term Goals: Pt will demonstrate symmetrical knee ROM in 2 weeks. Pt will demonstrate improved L knee MMT strength by 1/3 grade in 2 weeks. Pt will demonstrate improved hip MMT strength by 1/3 grade in 2 weeks. Senior Care Goals: Pt will demonstrate improved LEFI score by 9 points in 4 weeks for improved functional mobility. Pt will demonstrate ability to ambulate with min to no pain in 4 weeks for return to PLOF. Pt will demonstrate ability to negotiate stairs with min to no pain in 4 weeks for improved access to her home. Treatment Plan: Modalities to reduce pain, spasms and effusion. Manual therapy to restore motion and function. Therapeutic exercise to improve strength and flexibility. Neuromuscular re-education for posture and balance. Therapeutic activities to return to functional activities of daily living. Electronically signed by: Monie Joy, PT, DPT, ATC Please sign and return to therapist. Thank you for your referral.
--- NOTE | 2024-11-28 10:42 | MHC.PT.DC ---
[facility] [place] Office [place] Office [place] Office [address] Zachary Bahena 140 [facility] [phone] F: [phone] F: [phone] F: [phone] F: [phone] Physical Therapy Discharge Report Diagnosis: OA of L knee Date of Surgery: n/a Date of Evaluation: 10/30/24 Date of Discharge: 11/28/24 Treatments to Date: 3 Cancellations to Date: 6 No Shows to Date: 0 Discharge Status: Patient Elected to Stop Recommend MD Follow-up Discharge Summary: Pt cancelled remaining appointments as she was getting an MRI and was continuing to have ongoing knee pain that was getting worse. Electronically signed by: Monie Joy, PT, DPT, ATC Please sign and return to therapist. Thank you for your referral.
== END 2024-11-28 10:42 | disposition home or self-care (01) ==
LOC: HO.PTCHIC 15:00
PROVIDERS: PCP Internal Medicine; Visit Provider Physician Assistant
DX: M17.12 Unilateral primary osteoarthritis, left knee (principal)
CPT/HCPCS: 97110; 97140; 97161

== ENCOUNTER → 2024-11-17 19:42 | Outpatient (BNV) | payer OTHER, SELFPAY | PROVIDERS: PCP Internal Medicine; Visit Provider Specialist | DX: S83.512A Sprain of anterior cruciate ligament of left knee, initial encounter (principal); S83.232A Complex tear of medial meniscus, current injury, left knee, initial encounter; M17.12 Unilateral primary osteoarthritis, left knee | CPT/HCPCS: 73721 ==

== ENCOUNTER 2024-11-17 19:44 | Outpatient (REF) | payer OTHER, SELFPAY ==
--- NOTE | ~2024-11-17 | MR_ITS ---
CLINICAL HISTORY: M17.12 - Unilateral primary osteoarthritis, left knee MR left knee without gadolinium Comparison: None Findings: There are changes of osteoarthritis with medial extrusion of the medial meniscus. There is markedly abnormal appearance in the posterior horn of the medial meniscus. This may be related either to complex tear or prior meniscectomy. Correlate with surgical history. No acute fracture. There is a nonaggressive appearing lesion in the distal femur. Correlation with plain radiographs recommended. Small simple joint effusion. There is a partial tear involving the anteromedial bundle of the ACL. Posterior cruciate ligament is intact. Collateral ligaments are intact. No disruption of the patellar retinacula or iliotibial band. No tears of the quadriceps, patellar, popliteus, or flexor tendons. The lateral meniscus is intact. There is a small Rodriguez's cyst. IMPRESSION: 1. Partial-thickness ACL tear. 2. Complex posterior horn medial meniscal tear versus post partial meniscectomy changes. Correlate with surgical history. 3. Osteoarthritis most pronounced in the medial compartment. 4. Nonaggressive appearing distal femoral lesion. Correlate with plain radiographs to further characterize. This document has been electronically signed by: Adama Mcpherson MD on 11/17/2024 21:02:53
--- OUTSIDE RECORDS SUMMARY | 2024-11-17 19:51 | XMS_ITS ---
Author Organization [facility] Address [address] [place] [address] Care Team Providers Care Cut Order Hand Name Role Phone Francoise Solares MD Primary Care Provider Ny Brown [phone] Encounters Encounter Location Date Provider Diagnosis [address] [address] 09/06/2024 Ny Mendoza Plan Of Treatment Next Appt Details Provider Name:Ny Juli Reji , 01/10/2025 10:15:00 AM, [address] [place] [address], [phone], Provider Name:Ny A Reji , 01/24/2025 10:30:00 AM, [address] [place] [address], [phone], Progress Notes * Cierra RAGLANDOB:[birth year] (49 yo F)Acc No.[id number]:09/06/2024 Progress Note Patient:?Martha RAGLAND Provider:?Ny Mendoza DPM :1975???Age:49 Y???Sex:Female D ate:09/06/2024 Address:[address] [place], [place] [phone] Pcp:Francoise Solares MD Subjective: * Chief Complaints: * ??? * Medical History:? Objective: * Vitals:? Assessment: Plan: * Treatment: * Images: * The named appointment provid er may or may not be the originator of this progress note, and it is not deemed complete until electronically signed by the appointment provider. Sign off status: Pending * Provider:Danilo Mendoza DPM Date:?2023 Generated for Gabe chaudhari/Karina/Cynthia on:?11/17/2024 07:51 PM EST
--- OUTSIDE RECORDS SUMMARY | 2024-11-17 19:51 | XMS_ITS | Data Portability ---
Author Organization [place] - [facility], [address] Address [address] [place] [address] Care Team Providers Care Sales Trainee Name Role Phone [facility] Primary Care Provider Assessment No assessment recorded. Plan of Treatment Reminders Order Date Submit Date Provider Last Modified By Organization Details Last Modified Time Details Appointments None recorded. Lab None recorded. Referral None recorded. Procedures None recorded. Surgeries None recorded. Imaging None recorded. Medication Orders doxycycline hyclate 100 mg capsule 2022 023 [email or web address] 247 [facility] #[id number], [address] [place], [address], 15:52:15 Patient TargetsNo targets recorded. Patient Instructions Encounter Date Encounter Id Patient Instructions Last Modified By Organization Details Last Modified Time 11/04/2022 [id number] ingrown toenail: care instructions [email or web address] Not available 11/19/2022 15:54:20 Reason for Referral None Reported. Problems Name Problem SNOMED Code Status Onset Date Resolution Date Notes Provider Name and Address Organization Details Recorded Time Hypertensive disorder 91758212 Active JALEN bass [place] - [facility] 3 12:27:29 Problem Notes None recorded. Procedures Surgical History Date Name Laterality Status Provider Name and Address Organization Details Recorded Time Nail Avulsion - Partial completed ASHTYN BAUTISTA MD [facility] [place], [address], [place] - [facility] 11/04/2022 18:25:36 procedure on knee completed JALEN RIZZO PA - [facility] 11/04/2022 12:28:55 Imaging Results None recorded. Procedure Notes None recorded. Medical Equipment None Reported. Allergies Allergen ID Allergen Name Allergen Category Reaction Reaction Severity Criticality Documentation Date Start Date Code Code System Note Provider Name and Address Organization Details Recorded Time 615975 Product containin g penicilli n (product) medicatio n hives Not available Not available 11/04/2022 73065 8001 SNOMED JALENROGELIO FREITAS-RIVE RA null, [place] - [facility] 3 12:26:34 862005 Substance with sulfonami de structure and antibacte rial mechanism of action (substanc e) medicatio n hives Not available Not available 11/04/2022 88908 8003 SNOMED JALENROGELIO FREITAS-RIVE RA null, [place] - [facility] 3 12:26:45 604100 Keflex medicatio n hives Not available Not available 11/04/202286183 7 RxNorm JALEN FREITAS-RIVE null, [place] - [facility] 3 12:26:53 Medications Name Sig Start Date Stop Date Status Note LastModified by Organization Details LastModified Time doxycycline hyclate 100 mg capsule Take 1 capsule twice a day by oral route for 10 days. 2022 active Not Available Not Available Not Avai lable azithromyci n 250 mg tablet TAKE 2 TABLETS BY MOUTH TODAY, THEN TAKE 1 TABLET DAILY FOR 4 DAYS 11/04 completed Not Available Not Available Not Available hydrocodone 5 mg-acetamin ophen 325 mg tablet TAKE 1 TO 2 TABLETS BY MOUTH EVERY 4 HOURS NEEDED FOR PAIN active Not Available Not Available No t Available bisoprolol fumarate 5 mg tablet TAKE 1 TABLET BY MOUTH EVERY DAY active Not Available Not Available No t Available hydrocortis one 2.5 % topical cream APPLY TOPICAL TWICE A DAY NEEDED FOR SKIN IRRITATIO N active Not Available Not Available No t Available hydroxyzine HCl 10 mg tablet TAKE 1 TABLET ORALLY AT BEDTIME active Not Available Not Available No t Available Vitals Date Recorded Body height Body mass index (BMI) Body weight Pain severity - 0-10 verbal numeric rating [Score] - Reported Oxygen saturation Oxygen saturation in Arterial blood by Pulse oximetry Heart rate Respiratory rate Body temperature Systolic blood pressure Diastolic blood pressure Provider Name and Address Organization Details Last Updated DateTime 3 154.94 cm 45.3 kg/m2 500995. 17 g 2 99 % 99 % 66 /min 18 /min 97.5 [degF] 134 mm[Hg] 86 mm[Hg] JALEN [facility] 12:30:39 Social History Question Answer Notes LastModified by Organizat ion Details LastModified Time Tobacco Smoking Status Never Smoker LISA [facility] 11/04/2022 12:28:30 What Is Your Level Of Alcohol Consumption? Occasional Information not available 11/04/2022 Have You Had Direct Contact, Or Contact During Intimacy, With Monkeypox Rash, Scabs, Or Body Fluids From A Person With Monkeypox? No Information not available 11/04/2022 Do You Use Any Illicit Or Recreational Drugs? No Information not available 11/04/2022 Do You Or Have You Ever Used Any Other Forms Of Tobacco Or Nicotine? No Information not available 11/04/2022 Sex: Unknown Functional Status None recorded. Mental Status None recorded. Family History Relationship Description Onset Age of this Age Resolved Age Notes LastModified by Organization Details LastModified Time Mother Diabetes mellitus Not available 12:27:45 Mother Cerebrovascu lar accident 54 Not available 11/04/2022 12:28:00 Father Diabetes mellitus Not available 12:27:45 Father Congestive heart failure 88 Not available 12:28:13 Medical History No medical history recorded. Gynecological HistoryNo gynecological history recorded. Obstetrics History GPAL:G 0 P 0 0 0 0 Immunizations Vaccine Type Date Status Note Provider Nam e and Address Organization Details Recorded Time COVID-19, mRNA, LNP-S, PF, 100 mcg/0.5mL dose or 50 mcg/0.25mL dose 11/05/2020 completed LISA [facility] 11/04/2022 12:26:20 COVID-19, mRNA, LNP-S, PF, 100 mcg/0.5mL dose or 50 mcg/0.25mL dose 12/02/2020 completed JALEN FREITAS-CADET null, [place] - [facility] 11/04/2022 12:26:20 COVID-19, mRNA, LNP-S, PF, 100 mcg/0.5mL dose or 50 mcg/0.25mL dose 07/16/2021 completed JALEN FREITAS-CADET null, [place] - [facility] 11/04/2022 12:26:20 Influenza, split virus, quadrivalent, PF 06/16/2017 completed JALEN FREITAS-CADET null, [place] - [facility] 11/04/2022 12:26:20 Influenza, split virus, quadrivalent, PF 08/02/2018 completed JALEN FREITAS-CADET null, [place] - [facility] 11/04/2022 12:26:20 Past Encounters Encounter ID Performer Location Encounter Start Date Encounter Closed Date Diagnosis/Indication Diagnosis SNOMED-CT Code Diagnosis ICD10 Code Diagnosis Note [id number] [address] [facility] [place] [address] 08/29/2020 17:05:48 08/29/2020 18:45:33 [id number] [address] [facility] [place] [address] 03/13/2021 12:04:02 03/13/2021 13:23:04 [id number] [facility]A [facility] [address] [address] [facility] [place] [address] 11/04/2022 12:07:49 11/04/2022 17:33:38 Cellulitis of toe of right foot 5479237252 7474195 L03.031 Change the dressing in 2 days.F/u for any increased swelling, redness, drainage, fever, or red streaks that travel up from the toe. Ingrowing nail of toe of right foot 1793739500 3691369 L60.0 Change the dressing in 2 days.may take ibuprofen as directed on package for the appropriat e age range. Health Concerns Section Related Observation LastModified by Organization Detai ls LastModified Time None Recorded Concern Status LastModified by Organization Details LastModified Time None Recorded Advance Directives Directive None Recorded Payers Encounter Date Sequence Insurance Name Policy Number Policy Armijo Covered Member ID Armijo Member ID Guarantor Name 03/13/2021 1 [facility] [id number] 1 Martha Nelson [id number] Martha Deanr 11/04/2022 1 [facility] [id number] 1 Martha Deanr [id number] Martha Nelson Notes Date Note Type Note Provider Name and Address Organization Details Recorded Time 11/04/2022 text/html ToesReported bypatient.Location :right Quality:aching; throbbing; sharp; superficial Severity:severe Duration:1.5 months Timing:chronic Context:cannot identify; atraumatic Alleviating Factors:nothing helps Aggravating Factors:Wearing shoes. pt has pain in the right great toe, has an ingrown nail, redness x 1 1/2 mo. ASHTYN BAUTISTA MD [address] [place], [address], [place] - [facility] 11/19/2022 15:54:35 OBGyn Episode No OBEpisode recorded.
--- OUTSIDE RECORDS SUMMARY | 2024-11-17 19:51 | XMS_ITS | Patient Health Record ---
Author Organization [facility] Address [address] [place] [address] Care Team Providers Care Wood Hacker Name Role Phone Francoise Solares MD Primary Care Provider Unavaila crystal Brad Mendozamie Unavailable [phone] Allergies Allergen (clinical drug ingredient) Drug/Non Drug Allergy documented on EMR Reaction Allergy Type Onset Date Status Keflex rash Drug Allergy Active Penicillin rash Drug Allergy Active Substance with sulfonamide structure and antibacterial mechanism of action (substance) Sulfa Antibiotics rash Drug Allergy Active Reason For Referral No Information Medications Medication SIG (Take, Route, Frequency, Duration) Notes Start Date End Date Status Terbinafine HCl 250 MG 1 tablet Orally O nce a day for 7 days days then stop for 3 weeks repeat cycle for 90 days 09/06/2023 Active Nightsplint AFO Wear As directed for as needed 08/25/2023 Active Piroxicam 20 MG 1 capsule with food Orally Once a day for 30 days 08/23/2024 Active Feldene 20 MG 1 capsule with food Orally Once a day for 30 days 08/01/2023 Not-Taking Ciclopirox 8 % 1 application [employer] Attendant ally Once a day for 30 08/23/2024 Active Bisoprolol Fumarate 5 MG 1 tablet Orally Once a day for 30 day(s) Active Custom [employer]otics as directed 08/25/2023 Active Night Splint AFO - L1930 1 wear at rest for 30 days Active Social History Tobacco Use: Social History Observation Description Date Details (start date - stop date) Never Smoker NA - NA Tobacco use other than smoking: Question Answer Notes Are you an other tobacco user? No Tobacco Control (Standard) Question Answer Notes Tobacco use: Nonsmoker Additional Findings: Tobacco non-user Current no nsmoker AUDIT-C (Standard) Question Answer Notes Did you have a drink containing alcohol in the p ast year? No Points 0 Interpretation Negative Problems Problem Type SNOMED Code ICD Code Onset Dates Problem Status W/U Status Risk Notes Problem Ulcer of toe of right foot (disorder) (83558896107012374) Skin ulcer of toe of right foot, limited to breakdown of skin (L97.511) Active confirmed Nonapplicable Problem 00946960804691701 Plantar fasciitis, right (M72.2) Active confirmed Problem Ulcer of toe of left foot (disorder) (51918441413662418) Skin ulcer of toe of left foot, limited to breakdown of skin (L97.521) Active confirmed Vital Signs Blood pressure diastolic 45 mm Hg 11/01/2024 Height 5ft 1in in 11/01/2024 Blood pressure systolic 130 mm Hg 11/01/2024 Weight 251 lbs 11/01/2024 BMI 47.42 kg/m2 11/01/2024 Encounters Encounter Location Date Provider Diagnosis [address] [address] 12/06/2023 Ny Black Pain in right foot M79.671 ; Plantar fasciitis, bilateral M72.2 ; Other myositis of right foot M60.871 ; Bursitis of right foot M77.51 ; Pain in left foot M79.672 ; Other myositis of left foot M60.872 ; Bursitis of left foot M77.52 ; Pain in right toe(s) M79.674 ; Tinea unguium B35.1 and Pain in left toe(s) M79.[address] [address] 03/06/2024 Ny Black Plantar fasciitis, bilateral M72.2 ; Tinea unguium B35.1 ; Pain in right foot M79.671 ; Other myositis of right foot M60.871 ; Bursitis of right foot M77.51 ; Pain in left foot M79.672 ; Other myositis of left foot M60.872 ; Bursitis of left foot M77.52 ; Pain in right toe(s) M79.674 and Pain in left toe(s) M79.[address] [place] [id number] 06/07/2024 Ny Black Plantar fasciitis, bilateral M72.2 ; Tinea unguium B35.1 ; Pain in right foot M79.671 ; Other myositis of right foot M60.871 ; Bursitis of right foot M77.51 ; Pain in left foot M79.672 ; Other myositis of left foot M60.872 ; Bursitis of left foot M77.52 ; Pain in right toe(s) M79.674 and Pain in left toe(s) M79.[address] [place] [id number] 08/23/2024 Ny Black Tinea unguium B35.1 ; Plantar fasciitis, right M72.2 ; Pain in right foot M79.671 ; Other myositis of right foot M60.871 ; Bursitis of right foot M77.51 ; Pain in right toe(s) M79.674 and Pain in left toe(s) M79.[address] [place] [id number] 11/01/2024 Ny Black Plantar fasciitis, right M72.2 ; Ingrown nail L60.0 ; Tinea unguium B35.1 ; Pain in right foot M79.671 ; Other myositis of right foot M60.871 ; Bursitis of right foot M77.51 ; Pain in right toe(s) M79.674 and Pain in left toe(s) M79.675 [facility] [address] [place] [address] 05/02/2024 Ny[facility]ella [facility] [address] [place] [id number] 08/06/2024 Ny Mendoza [address] [place] [id number] 08/27/2024 Ny Mendoza Assessments Encounter Date Diagnosis (ICD Code) Assessment Notes Treatment Notes Treatment Clinical Notes Section Notes 12/06/2023 Pain in right foot (ICD-10 - M79.671) 12/06/2023 Plantar fasciitis, bilateral (ICD-10 - M72.2) 03/06/2024 Tinea unguium (ICD-10 - B35.1) 03/06/2024 Plantar fasciitis, bilateral (ICD-10 - M72.2) 06/07/2024 Plantar fasciitis, bilateral (ICD-10 - M72.2) 08/23/2024 Tinea unguium (ICD-10 - B35.1) 08/23/2024 Plantar fasciitis, right (ICD-10 - M72.2) 11/01/2024 Ingrown nail (ICD-10 - L60.0) 11/01/2024 Plantar fasciitis, right (ICD-10 - M72.2) 11/01/2024 Tinea unguium (ICD-10 - B35.1) 08/23/2024 Pain in right foot (ICD-10 - M79.671) 06/07/2024 Pain in right foot (ICD-10 - M79.671) 06/07/2024 Tinea unguium (ICD-10 - B35.1) 03/06/2024 Pain in right foot (ICD-10 - M79.671) 12/06/2023 Other myositis of right foot (ICD-10 - M60.871) 12/06/2023 Bursitis of right foot (ICD-10 - M77.51) 03/06/2024 Other myositis of right foot (ICD-10 - M60.871) 06/07/2024 Other myositis of right foot (ICD-10 - M60.871) 11/01/2024 Pain in right foot (ICD-10 - M79.671) 08/23/2024 Other myositis of right foot (ICD-10 - M60.871) 08/23/2024 Bursitis of right foot (ICD-10 - M77.51) 11/01/2024 Other myositis of right foot (ICD-10 - M60.871) 06/07/2024 Bursitis of right foot (ICD-10 - M77.51) 03/06/2024 Bursitis of right foot (ICD-10 - M77.51) 12/06/2023 Pain in left foot (ICD-10 - M79.672) 12/06/2023 Other myositis of left foot (ICD-10 - M60.872) 03/06/2024 Pain in left foot (ICD-10 - M79.672) 06/07/2024 Pain in left foot (ICD-10 - M79.672) 11/01/2024 Bursitis of right foot (ICD-10 - M77.51) 08/23/2024 Pain in right toe(s) (ICD-10 - M79.674) 11/01/2024 Pain in right toe(s) (ICD-10 - M79.674) 03/06/2024 Other myositis of left foot (ICD-10 - M60.872) 06/07/2024 Other myositis of left foot (ICD-10 - M60.872) 08/23/2024 Pain in left toe(s) (ICD-10 - M79.675) 12/06/2023 Bursitis of left foot (ICD-10 - M77.52) 12/06/2023 Pain in right toe(s) (ICD-10 - M79.674) 06/07/2024 Bursitis of left foot (ICD-10 - M77.52) 03/06/2024 Bursitis of left foot (ICD-10 - M77.52) 11/01/2024 Pain in left toe(s) (ICD-10 - M79.675) 03/06/2024 Pain in right toe(s) (ICD-10 - M79.674) 06/07/2024 Pain in right toe(s) (ICD-10 - M79.674) 12/06/2023 Tinea unguium (ICD-10 - B35.1) 12/06/2023 Pain in left toe(s) (ICD-10 - M79.675) 03/06/2024 Pain in left toe(s) (ICD-10 - M79.675) 06/07/2024 Pain in left toe(s) (ICD-10 - M79.675) Plan Of Treatment Pending Test Test Name Order Date *Liver Function Test (LFT) 08/25/2023 *Liver Function Test (LFT) 03/06/2024 45776- Debride <25 sq cm 08/25/2023 Next Appt Details Provider Name:Ny Mendoza , 01/10/2025 10:15:00 AM, [address], [place], [id number], Provider Name:Ny Mendoza , 01/24/2025 10:30:00 AM, [address], [place], [id number], Insurance Providers Payer Name Payer Address Payer Phone Subscriber Number Group Number Insured Name Patient Relationship to Insured Coverage Start Date Coverage End Date [facility] [address] [place] [address] [phone] [id number] Martha Nelson Self - patient is the insured Medical (General) History Medical History History ICD Code Back,Hip,and Knee pain Broken bones covid-19 Gall bladder problems High blood pressure Chicken pox Surgical History Surgery Date(Month/Year) knee surgery, left knee surgery, right 2009 cyst removal 2003 Gall bladder removal 2015
--- OUTSIDE RECORDS SUMMARY | 2024-11-17 19:51 | XMS_ITS ---
Author Organization [facility] Address [address] [place] [address] Care Team Providers Care Independent Distributor Name Role Phone Francoise Solares MD Primary Care Provider Unavaila ble Black, Ny Unavailable [phone] Allergies Allergen (clinical drug ingredient) Drug/Non Drug Allergy documented on EMR Reaction Allergy Type Onset Date Status Keflex rash Drug Allergy Active Penicillin rash Drug Allergy Active Substance with sulfonamide structure and antibacterial mechanism of action (substance) Sulfa Antibiotics rash Drug Allergy Active REASON FOR VISIT Heel pain, Painful nail(s) aggrevated by shoes causing difficulty standing/walking, Ingrown Nail Medications Medication SIG (Take, Route, Frequency, Duration) Notes Start Date End Date Status Nightsplint AFO Wear As directed for as needed 08/25/2023 Active Terbinafine HCl 250 MG 1 tablet Orally O nce a day for 7 days days then stop for 3 weeks repeat cycle for 90 days 09/06/2023 Active Piroxicam 20 MG 1 capsule with food Orally Once a day for 30 days 08/23/2024 Active Ciclopirox 8 % 1 application Floorworker Lasting ally Once a day for 30 08/23/2024 Active Custom Orthotics as directed 08/25/2023 Active Feldene 20 MG 1 capsule with food Orally Once a day for 30 days 08/01/2023 Not-Taking Bisoprolol Fumarate 5 MG 1 tablet Orally Once a day for 30 day(s) Active Night Splint AFO - L1930 1 [...] ast year? No Points 0 Interpretation Negative Vital Signs Height 5ft 1in in 11/01/2024 Weight 251 lbs 11/01/2024 BMI 47.42 kg/m2 11/01/2024 Blood pressure systolic 130 mm Hg 11/01/19 25 Blood pressure diastolic 45 mm Hg 025 Encounters Encounter Location Date Provider Diagnosis [facility] [address] [place] [address] 11/01/2024 Ny Mendoza Plantar fasciitis, right M72.2 ; Ingrown nail L60.0 ; Tinea unguium B35.1 ; Pain in right foot M79.671 ; Other myositis of right foot M60.871 ; Bursitis of right foot M77.51 ; Pain in right toe(s) M79.674 and Pain in left toe(s) M79.675 Assessments Encounter Date Diagnosis (ICD Code) Assessment Notes Treatment Notes Treatment Clinical Notes Section Notes 11/01/2024 Plantar fasciitis, right (ICD-10 - M72.2) 11/01/2024 Ingrown nail (ICD-10 - L60.0) 11/01/2024 Tinea unguium (ICD-10 - B35.1) 11/01/2024 Pain in right foot (ICD-10 - M79.671) 11/01/2024 Other myositis of right foot (ICD-10 - M60.871) 11/01/2024 Bursitis of right foot (ICD-10 - M77.51) 11/01/2024 Pain in right toe(s) (ICD-10 - M79.674) 11/01/2024 Pain in left toe(s) (ICD-10 - M79.675) Plan Of Treatment Next Appt Details Follow Up: as scheduled, Charito son: P&A Provider Name:Ny Bustos Reji , 01/10/2025 10:15:00 AM, [address] [place], [address], Provider Name:Ny Mendoza , 01/24/2025 10:30:00 AM, [address], [place], [address], Progress Notes * Cierra RAGLANDOB:[birth year] (49 yo F)Acc No.[id number]:11/01/2024 Progress Note Patient:?Martha RAGLAND Provider:?Ny Mendoza DPM :1975???Age:49 Y???Sex:Female D ate:11/01/2024 Address:[address] [place] [address] Pcp:Francoise Solares MD Subjective: * Chief Complaints: * ???Heel painPainful nail(s) aggrevated by shoes causing difficulty standing/walkingIngrown Nail * HPI: ???Painful Nails:?Pt States Last PCP Visit:?Date:?02/08/2024 ?Treatments:?Lamisil, Oral Antifungal( stopped due to side effects)?presently using topical medication.?Heel pain:?Nature:?tenderness, sharp pain, stiffness.?Location:?Proximal plantar aspect of Heel ,, RIGHT.?Duration:?several years.?Course:?, improved, at approximately 50%.?Aggravated:?standing, walking, walking first thing in the morning/after rest.?Treatments:?rest , ice , stretching , Pre-cierra innersoles, OTC motrin, feldene leon sneakers and pt picking up refurbished custom orthotic today.? * ROS:?General/Constitutional:?Nausea?denies.?Vomiting?denies.?Hunger Thirst?denies.?Loss appetite?denies.?Chills?denies.?Fatigue?denies.?Fever?denies.?Night Sweats?denies.?Unexplained weight loss?denies.?Unexplained weight gain?denies.?HEENTM:?Dentures?denies.?Dizziness?denies.?Glasses/contacts?denies.?Retinopathy?de nies.?Blurred/double vision?denies.?TMJ?denies.?Discharge/drainage?denies.?Implants?denies.?Sore throat?denies.?Dental implants?denies.?Hard of hearing ?denies.?Difficulty chewing/swallowing/speaking?denies.?Nose bleeds?denies.?Sore mouth?denies.?Respiratory:?On Oxygen?denies.?Pneumonia/pleurisy?denies.?Bronchitis?denies.?Emphysema?denies.?C oughing?denies.?Cough blood?denies.?Shortness of breath?denies.?Wheezing?denies.?Cardiovascular:?Pacemaker?denies.?MVP?denies.?WPW?denies.?CHF?denies.?Heart attack?denies.?Septal defect?denies.?Rapid beat?denies.?Chest pain ?denies.?Atrial Fib.?denies.?Murmur/Palpitations?denies.?Gastrointestinal:?Hemorrhoids?denies.?Stomach/Abdominal pain?denies.?Dark blood stool?denies.?Irritable bowel ?denies.?Constipation?denies.?Diarrhea?denies.?Hematology:?Swelling?denies.?Clots?denies.?Varicose Veins?denies.?Bruising?denies.?Bleeding problem?denies.?Genitourinary:?Blood urine?denies.?Frequent/Painfu/urination/bladder control?denies.?Kidney stones?denies.?Infection (UTI)?denies.?Nephropathy?denies.?sex trans dis (STD)?denies.?Prostate?denies.?Musculoskeletal:?Hammertoes?denies.?Bunions?denies.?Back Pain?denies.?Muscle Cramps/ Resting?denies.?Muscle cramps / walking?denies.?Generalized aches and pains?denies.?Weakness?denies.?Integ.:?Aguirre?denies.?Scars?denies.?Corns/calluses?denies.?Ingrown nails?admits.?Painful nails?admits.?Open Sores?denies.?Rashes?denies.?Neurologic:?Difficulty sleeping?denies.?Brain disorder?denies.?Numbness?denies.?Balance trouble?denies.?Confusion?denies.?Fainting/blackouts?denies.?Tingling?denies.?Tr emors?denies.? * Medical History:? * Surgical History:?knee surge ry, left 1993/1994knee surgery, right 2010cyst removal 2004Gall bladder removal 2015 * Hospitalization/Major Diagno stic Procedure:?Denies Past Hospitalization * Family History:?Mother: dece ased.?Father: .?Spouse: alive.? * Social History:?Tobacco Use:?Tobacco use other than smoking?Are you an other tobacco user??No ?Tobacco Control (Standard)?Tobacco use:?Nonsmoker ?Additional Findings: Tobacco non-user?Current nonsmoker ???Drugs/Alcohol:?Drugs?Have you used drugs other than those for medical reasons in the past 12 months??No ???Miscellaneous:?Caffeine: yes, 1-2 cups per day. ?Children: no. ?Exercise: no. ?Marital status: . ?Occupation: [employer] ???Drug/Alcohol:?AUDIT-C (Standard)?Did you have a drink containing alcohol in the past year??No ?Points?0 ?Interpretation?Negative * Medications:?TakingBisoprolo l Fumarate 5 MG Tablet 1 tablet Orally Once a day Night Splint AFO - L1930 1 wear at rest Custom Orthotics as directed Nightsplint AFO Wear As directed Terbinafine HCl 250 MG Tablet 1 tablet Orally Once a day for 7 days days then stop for 3 weeks repeat cycle Piroxicam 20 MG Capsule 1 capsule with food Orally Once a day Ciclopirox 8 % Solution 1 application Externally Once a day Taking Bisoprolol Fumarate 5 MG Tablet 1 tablet Orally Once a day Taking Night Splint AFO - L1930 1 wear at rest Taking Custom Orthotics as directed Taking Nightsplint AFO Wear As directed Taking Terbinafine HCl 250 MG Tablet 1 tablet Orally Once a day for 7 days days then stop for 3 weeks repeat cycle Taking Piroxicam 20 MG Capsule 1 capsule with food Orally Once a day Taking Ciclopirox 8 % Solution 1 application Externally Once a day Not-Taking/PRNFeldene 20 MG Capsule 1 capsule with food Orally Once a day Medication List reviewed and reconciled with the patientNot-Taking/PRN Feldene 20 MG Capsule 1 capsule with food Orally Once a day Medication List reviewed and reconciled with the patient * Allergies:?Penicillin: rashK eflex: rashSulfa Antibiotics: rashyes[Allergies Verified] Objective: * Vitals:?Ht: 5ft 1in, Wt:251, BMI:47.42, Shoe size: 7W, BP:130/45mm Hg, Ht-cm: 154.94 cm, Wt-k.85 kg. * Examination: ???General Examination: ?GENERAL APPEARANCE:? Denies fever, chills, malaise, lymphadenopathy, Reveals a pleasant, alert, well nourished, well-developed, well hydrated individual, who demonstrates proper attention to hygiene/body habitus, and is in no acute distress.?ORIENTED:?person, place, and time.?Nails: ?NAILS are:?Elongated, overgrown, dystrophic, lytic, greater than 3mm thick, discolored and friable with crumbly malodorous subungual debris, with pain on palpation , ,, TA, T1, T2, T3, T4,? T6, T7, T8, T9.?Neurological: ?SENSORY:?Neurological exam reveals intact sensorium, pain sensation normal, vibration sensation intact, pinprick sensation is normal in the lower extremities, Pt denies, anesthesia, burning, paresthesia, tingling, B/L.?TINEL'S COMPRESSION:?Negative tarsal tunnel, asha pedis, and medial calcaneal nerves.?Heel Pain: ?INSPECTION REVEALS:?Pain on Palpation to Plantar Fascia med. and central bands, intrinsic musc., infra-calcaneal bursa, and med calc tubercle, B/L, No pain: posterior/superior heel, achilles bursa/tendon, sinus tarsi, peroneals, or with lateral heel compression; no limited STJ ROM, calor, or ecchymosis R No POP left, Approximately 50? percent LESS.?Orthopedic: ?MUSCLE STRENGTH:?5/5 all groups in a symmetrical fashion, B/L.?GAIT ABNORMALITY:?Pronated, abducted angle and base of gate.?FOOT MORPHOLOGY:?Pes Planus structure, B/L.?FOOTWEAR:?Pt did not present with present orthotics for evaluation.?Vascular: ?DP PULSES (B):?3/4, B/L.?PT PULSES (B):?3/4, B/L.?CAPILLARY FILL TIME:?immediate, all digits, B/L.?TROPHIC CONDITION-TEXTURE/ELASTICITY/TURGOR/HAIR GROWTH (B):?normal, B/L.?TEMPERTURE GRADIENT (C):?normal, warm to cool, proximal to distal, B/L, B/L.?PIGMENTATION:?normal, B/L.?Ingrown Nail: ?INSPECTION:?Reveals nail incurvation, pain on palpation, groove hypertrophy, groove ischemia, Lateral nail border, T5.? Assessment: * Assessment: 1.?Ingrown nail - L60.0 (Kari franks)???Specify :Decision for surgery (4)???2.?Plantar fasciitis, right - M72.2???Specify :Response to treatment - Improvement???3.?Tinea unguium - B35.1???Specify :Chronic problem, Stable (1=3,2=4)???4.?Pain in right foot - M79.671???5.?Other myositis of right foot - M60.871???6.?Bursitis of right foot - M77.51???7.?Pain in right toe(s) - M79.674???8.?Pain in left toe(s) - M79.675??? Plan: * Treatment: * Procedure Codes:? * Preventive Medicine:? ??Counseling:?Discussion:?-14: Office or other outpatient visit for the evaluation and management of an established patient, which required a medically appropriate history and/or examination and MODERATE level of DECISION MAKING for: 1 OR MORE CHRONIC PROBLEM(S) THATS WORSENING, 2 STABLE CHRONIC PROBLEMS, A NEWLY DIAGNOSED PROBLEM WITH UNCERTAIN PROGNOSIS, AN ACUTE COMPLICATED INJURY WITH MULTIPLE TREATMENT OPTIONS, OR AN ACUTE PROBLEM WITH ACCOMPANYING SYSTEMIC SYMPTOMS, THAT POSE(S) A MODERATE RISK OF MORBIDITY. THIS CONDITION MAY ALSO INCLUDE RX DRUG MANAGEMENT, OR A DECISON FOR MINOR SURGERY. The visit on the day of the encounter encompassed interpreting the data and educating the patient as to the nature of their condition, treatment options available according to their individual PMH, meds, allergies, and overall health/living conditions, as well as any potential risks or complications that may occur from a failure to adhere to, and participate in, the recommended course of therapy. The discussion included a complete verbal, and/or written explanation of the examination results, any x-rays taken, the proposed diagnosis, and outline of the treatment plan. A schedule for future care needs was also explained. The patient verbalized an understanding of the instructions at this time and agreed to be an active participant in their treatment. If the patient should think of any questions or concerns after the visit, I have encouraged the patient to call the office.?Abscess/Paraonychia/Ingrown Nails:?We discussed the possible etiologies (genetic, improper nail care, shoe gear, nail trauma) which may lead to ingrown nails and/or paronychial infections. We discussed and reviewed palliative/nonsurgical/deferring definitive treatment (vs) undergoing the treatment procedures of nail avulsion(s) or PNA, which may prevent recurrence and give more lasting results. The possible risks/complications such as worsened condition/delayed healing/nonhealing/failure/recurrence/infection, the potential benefits/advantages of decreased pain/deformity, as well as alterative treatment options including applying nail softening agents/nail groove packing were discussed. No guarantees were given regarding any outcome for any procedure. The patient was educated in the length of time for the affected nail to regrow once completely healed from a nail avulsion procedure. Once the condition has completely healed, the patient was consulted on proper nail care. Patient questions such as details of each procedure, varying time to heal, activity post procedure, and shoe gear were discussed and the answers were verbally confirmed fully understood, slant back performed with good relief of pain, pt to monitor for any signs of infection, pt should soak in warm water and epsom salts and apply antibotic ointment, call with any issues.?F/U Fungal nails:?Reviewed with the patient the time needed before we start seeing results with the topical medication. Discussed the results that we hope to see . We discussed the duration of time needed to see results., Nail debridement performed extensively to reduce/remove overall nail length and girth, subungual debris, and necrotic tissue, by manual and electrical means with use of a nail nipper and/or dremel, to more viable healthy nail plate or bed tissue. Silver nitrate used for any petechial bleeding as necessary.?Heel pain:?Discussed other tx options for the patients condition, Given recent successful results to treatment, the patient wishes to continue with the present plan for their condition. Dispensed refurbished orthotics at todays visit. recomm. breaking in period..?Orthotic Dispensing:?The patient presents today for fitting and dispensing of orthotics. The inserts were checked against the prescription and found to be accurate. They were properly fitted to the patients feet and shoes in both weight-bearing and non-weight bearing attitudes. The patient was instructed to gradually increase the amount of time they are wearing the orthoses, starting with one hour the first day and thereon progressively increasing the amount of time used by one hours per day until they are comfortable to be worn all day and with all activities. They were asked to call the office if any signs of skin irritation were noted including redness, blistering or callous formation. The patient verbally indicated a full understanding of all the above information.? ??Screening/Special Tests:?Fall Risk?Screening:?No falls in the past year ?FALLS: Screening for Future Fall Risk?Have you had any falls with injury in the past year??No * Follow Up:?as scheduled ([place] son: P&A) * Images: * Sign off status: Completed true * Provider:?Ny Mendoza DPM Date:?2024 Generated for Gabe chaudhari/Karina/Cynthia on:?11/17/2024 07:51 PM EST History and Physical Notes * HPI (History of Present Illness) Category Sub-Category Detail Notes Category Not es Heel pain Duration: several years Nature: tenderness, sharp pa in, stiffness Location: Proximal plantar asp ect of Heel ,, RIGHT Aggravated: standing, walking, w alking first thing in the morning/after rest Course: , improved, at appro ximately 50% Treatments: rest , ice , stretch ing , Pre-cierra innersoles, OTC motrin, feldene leon sneakers and pt picking up refurbished custom orthotic today Painful Nails Treatments: Lamisil, Oral An tifungal( stopped due to side effects) presently using topical medication Pt States Last PCP Visit: Date:: 02/08/2024 Examination Category Sub-Category Detail Notes Category Not es Ingrown Nail INSPECTION: Reveals nail inc urvation, pain on palpation, groove hypertrophy, groove ischemia, Lateral nail border, T5 Heel Pain INSPECTION REVEALS: Pain on Palp ation to Plantar Fascia med. and central bands, intrinsic musc., infra-calcaneal bursa, and med calc tubercle, B/L, No pain: posterior/superior heel, achilles bursa/tendon, sinus tarsi, peroneals, or with lateral heel compression; no limited STJ ROM, calor, or ecchymosis R No POP left, Approximately 50 percent LESS Neurological SENSORY: Neurological exa m reveals intact sensorium, pain sensation normal, vibration sensation intact, pinprick sensation is normal in the lower extremities, Pt denies, anesthesia, burning, paresthesia, tingling, B/L TINEL'S COMPRESSION: Negative tarsal rocky josé miguel, asha pedis, and medial calcaneal nerves Dermatologic ULCER: Orthopedic GAIT ABNORMALITY: Pronated, abducted angl e and base of gate FOOT MORPHOLOGY: Pes Planus structure , B/L FOOTWEAR: Pt did not present w ith present orthotics for evaluation MUSCLE STRENGTH: 5/5 all groups in a symmetrical fashion, B/L General Examination GENERAL APPEARANCE: Denies f ever, chills, malaise, lymphadenopathy, Reveals a pleasant, alert, well nourished, well-developed, well hydrated individual, who demonstrates proper attention to hygiene/body habitus, and is in no acute distress ORIENTED: person, place, and t aaron Vascular DP PULSES (B): 3/4, B/L PT PULSES (B): 3/4, B/L CAPILLARY FILL TIME: immediate, all digi ts, B/L TEMPERTURE GRADIENT (C): normal, warm to cool, proximal to distal, B/L, B/L TROPHIC CONDITION-TEXTURE/ELASTICITY/TURGOR/HAIR GROWTH (B): normal, B/L PIGMENTATION: normal, B/L Nails NAILS are: Elongated, overg rown, dystrophic, lytic, greater than 3mm thick, discolored and friable with crumbly malodorous subungual debris, with pain on palpation , ,, TA, T1, T2, T3, T4, T6, T7, T8, T9
== END 2024-11-17 19:45 | disposition home or self-care (01) ==
LOC: HO.MRI 19:44
PROVIDERS: PCP Internal Medicine; Visit Provider Physician Assistant
DX: M17.12 Unilateral primary osteoarthritis, left knee (principal)
CPT/HCPCS: 73721

== ENCOUNTER 2024-12-13 13:17 | Outpatient (AMB) | payer OTHER, SELFPAY ==
--- NOTE | 2024-12-13 13:26 | A.OFFVIS_ITS ---
Vital Signs 12/13/24 13:29 Height 5 ft 1 in Weight 265 lb BMI 50.1 Intake Visit Reasons: ov-LT knee MRI review Intake Note: Martha is a 49 year old female who presents today for a right knee MRI review. Hx of left knee exploratory surgery in 1993 and 1994. Patient reports that her foot had gotten stuck on the carpet at work causing her slightly twist her knee. Since than she has had an increase of pain at the medial aspect of knee. Finds no relief with Tylenol or naproxen. IMPRESSION: 1. Partial-thickness ACL tear. 2. Complex posterior horn medial meniscal tear versus post partial meniscectomy changes. Correlate with surgical history. 3. Osteoarthritis most pronounced in the medial compartment. 4. Nonaggressive appearing distal femoral lesion. Correlate with plain radiographs to further characterize. Allergies amlodipine Adverse Reaction (Intermediate, Verified 12/13/24 13:32) cough cephalexin [From Keflex] Adverse Reaction (Verified 12/13/24 13:32) Rash Penicillins Adverse Reaction (Verified 12/13/24 13:32) Rash Sulfa (Sulfonamide Antibiotics) Adverse Reaction (Verified 12/13/24 13:32) Rash Medication List - Last Reconciled 12/13/24 by Tanisha Frazier PA-C bisoprolol fumarate 5 mg PO DAILY HPI HPI ov-LT knee MRI review: Details: 49-year-old female returns to the office today for a follow-up left knee MRI review. She continues to have medial joint line tenderness and discomfort with activities such as prolonged walking or stair climbing. Her previous visit she had an injection which lasted approximately 3 months and she was able to perform more activities as tolerated. [facility] Medical History (Updated 12/13/24 @ 13:51 by Tanisha Frazier PA-C) HTN (hypertension) Irregular menses Anxiety Enlarged thyroid Grieving Overweight Normal pelvic exam Annual physical exam Surgical History Hx of colonoscopy Hx of cholecystectomy S/P knee surgery Family History Father HTN (hypertension) DM (diabetes mellitus) Mother HTN (hypertension) Stroke Social History Household Members Other:: , no children, work at [employer], Housing: House Patient Tobacco Use Status: Never used Tobacco Second Hand Smoke Exposure: Yes service: No Current occupational status: employed 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 Cognitive needs: No Hearing needs: No Vision needs: No Review of Systems Const All systems reviewed & are unremarkable except as noted in HPI and below Physical Exam Vital Signs: BMI result Body Mass Index 50.1 Const General: cooperative, healthy appearing, comfortable, no acute distress, well developed and alert Orientation/consciousness: patient oriented x3 HEENT Head: Yes normal to inspection, Yes normocephalic and Yes atraumatic Eyes General: appearance normal, both eyes and all related structures Resp Effort & Inspection: normal respiratory effort and able to speak in complete sentences Cardio Rate: regular rate Peripheral pulses: Peripheral pulses 2+ throughout GI Palpation (GI): Soft to palpation Skin Lesions: no lesions Rashes: no rashes Neuro General: patient oriented x3 Extrem Other: Left knee: Skin intact, no erythema or joint effusion. Tenderness along the medial and lateral joint line. Full ROM with crepitus. Negative Trip?s. No ligamentous laxity. NVI. ? Office Procedures AMB Joint Injection/Aspiration Joint Injection/Aspiration Primary Site: left knee Prep: site was prepped using aseptic technique, ethochloride spray was applied and injection warnings given Injected: 80 mg of, DepoMedrol, with 8 mL of, 1% plain lidocaine and in the joint Approach Used: anterolateral Procedure: The patient tolerated the procedure well and there was some relief with the local anesthesia Coding 73025 - Glenohumeral/Tronchanteric Bursa/Intraarticular Procedure code (CPT) selection complete Results Reviewed Results Reviewed: IMPRESSION: 1. Partial-thickness ACL tear. 2. Complex posterior horn medial meniscal tear versus post partial meniscectomy changes. Correlate with surgical history. 3. Osteoarthritis most pronounced in the medial compartment. 4. Nonaggressive appearing distal femoral lesion. Correlate with plain radiographs to further characterize. Assessment & Plan Assessment & Plan (1) Osteoarthritis of left knee: Code(s): M17.12 - Unilateral primary osteoarthritis, left knee Category: Medical (2) Tear of meniscus of left knee: Code(s): S83.207A - Unspecified tear of unspecified meniscus, current injury, left knee, initial encounter Category: Medical (3) Partial tear of anterior cruciate ligament of knee: Code(s): S83.519A - Sprain of anterior cruciate ligament of unspecified knee, initial encounter Category: Medical Plan We discussed options today which include physical therapy to continue working on range of motion and strengthening exercises. Since she did have approximately 3 months of relief with her previous injection we did discuss repeat injection today which she is interested in. Patient tolerated procedure well. She will continue to progress activities as tolerated and if symptoms persist or worsen she will contact our office to discuss further options. Coding Level of Care Code Est Pt Level 3 (09206) Complex EM visit Add On G2211 Diagnoses Osteoarthritis of left knee M17.12 Tear of meniscus of left knee S83.207A Partial tear of anterior cruciate ligament of knee S83.519A CPT Codes Coding - Joint 7: 64629 - Glenohumeral/Tronchanteric Bursa/Intraarticular ([id number])
[2024-12-13 13:29] VITALS: BMI 50.1
== END 2024-12-13 14:02 | disposition home or self-care (01) ==
LOC: HO.HOS 13:18
PROVIDERS: PCP Internal Medicine; Visit Provider Physician Assistant
DX: M17.12 Unilateral primary osteoarthritis, left knee (principal); S83.207A Unspecified tear of unspecified meniscus, current injury, left knee, initial encounter; S83.512A Sprain of anterior cruciate ligament of left knee, initial encounter
CPT/HCPCS: 20610; 99213

== ENCOUNTER → 2024-12-13 13:17 | Outpatient (BNVA) | payer OTHER, SELFPAY | PROVIDERS: PCP Internal Medicine; Visit Provider Physician Assistant | DX: M17.12 Unilateral primary osteoarthritis, left knee (principal); S83.207A Unspecified tear of unspecified meniscus, current injury, left knee, initial encounter; S83.512A Sprain of anterior cruciate ligament of left knee, initial encounter; X58.XXXA Exposure to other specified factors, initial encounter; Y93.9 Activity, unspecified; Y92.9 Unspecified place or not applicable; Y99.9 Unspecified external cause status; Z71.2 Person consulting for explanation of examination or test findings | CPT/HCPCS: 20610; J1010; J2003 ==

== ENCOUNTER 2024-12-27 15:56 | Outpatient (REF) | payer OTHER, SELFPAY ==
--- OUTSIDE RECORDS SUMMARY | 2024-12-27 15:57 | XMS_ITS ---
Author Organization [facility] Address [address] [place] [address] Care Team Providers Care Cryptologic Technician Technical Name Role Phone Francoise Solares MD Primary Care Provider Ny Brown [phone] Encounters Encounter Location Date Provider Diagnosis [address] [address] 11/22/2024 Ny Mendoza Plan Of Treatment Next Appt Details Provider Name:Ny Juli Reji , 01/10/2025 10:15:00 AM, [address] [place] [address], [address], Provider Name:Ny A Reji , 01/24/2025 10:30:00 AM, [address] [place] [address], [address], Progress Notes * Cierra RAGLANDOB:[birth year] (49 yo F)Acc No.[id number]:11/22/2024 Progress Notes Patient:?Martha RAGLAND Provider:?Ny Mendoza DPM :1975???Age:49 Y???Sex:Female D ate:11/22/2024 Address:[address] [place], [place] [phone] Pcp:Francoise Solares MD Subjective: * Chief Complaints: * ??? * Medical History:? Objective: * Vitals:? Assessment: Plan: * Treatment: * Images: * The named appointment provid er may or may not be the originator of this progress note, and it is not deemed complete until electronically signed by the appointment provider. Sign off status: Pending * Provider:Danilo Mendoza DPM Date:?2024 Generated for Gabe chaudhari/Karina/Cynthia on:?12/27/2024 03:57 PM EDT
--- OUTSIDE RECORDS SUMMARY | 2024-12-27 15:58 | XMS_ITS | Patient Health Record ---
Author Organization [facility] Address [address] [place] [address] Care Team Providers Care Campus Coordinator Name Role Phone Francoise Solares MD Primary Care Provider Unavaila crystal Brad Mendozamie Unavailable [phone] Allergies Allergen (clinical drug ingredient) Drug/Non Drug [...] 08/01/2023 Not-Taking Ciclopirox 8 % 1 application Litigation Claim Representative ally Once a day for 30 08/23/2024 [...] Ulcer of toe of right foot (disorder) (02830645634883218) Skin ulcer of toe of right foot, limited to breakdown of skin (L97.511) Active confirmed Nonapplicable Problem [id number] Plantar fasciitis, right (M72.2) Active confirmed Problem Ulcer of toe of left foot (disorder) (73674178920967500) Skin ulcer of toe of left foot, limited to breakdown of skin (L97.521) Active confirmed Vital Signs Blood pressure diastolic 45 mm Hg 11/01/2024 Height 5ft 1in in 11/01/2024 Blood pressure systolic 130 mm Hg 11/01/2024 Weight 251 lbs 11/01/2024 BMI 47.42 kg/m2 11/01/2024 Encounters Encounter Location Date Provider Diagnosis [address] [address] 03/06/2024 Ny Black Plantar fasciitis, bilateral M72.2 ; Tinea unguium B35.1 ; Pain in right foot M79.671 ; Other myositis of right foot M60.871 ; Bursitis of right foot M77.51 ; Pain in left foot M79.672 ; Other myositis of left foot M60.872 ; Bursitis of left foot M77.52 ; Pain in right toe(s) M79.674 and Pain in left toe(s) M79.[address] [address] 06/07/2024 Ny Black Plantar fasciitis, bilateral M72.2 ; Tinea unguium B35.1 ; Pain in right foot M79.671 ; Other myositis of right foot M60.871 ; Bursitis of right foot M77.51 ; Pain in left foot M79.672 ; Other myositis of left foot M60.872 ; Bursitis of left foot M77.52 ; Pain in right toe(s) M79.674 and Pain in left toe(s) M79.[address] [address] 08/23/2024 Ny Black Tinea unguium B35.1 ; Plantar fasciitis, right M72.2 ; Pain in right foot M79.671 ; Other myositis of right foot M60.871 ; Bursitis of right foot M77.51 ; Pain in right toe(s) M79.674 and Pain in left toe(s) M79.[address] [address] 11/01/2024 Ny Black Plantar fasciitis, right M72.2 ; Ingrown nail L60.0 ; Tinea unguium B35.1 ; Pain in right foot M79.671 ; Other myositis of right foot M60.871 ; Bursitis of right foot M77.51 ; Pain in right toe(s) M79.674 and Pain in left toe(s) M79.675 [facility] [address] [place] [address] 05/02/[address] [address] 08/06/[address] [address] 08/27/2024 Ny Black Assessments Encounter Date Diagnosis (ICD Code) Assessment Notes Treatment Notes Treatment Clinical Notes Section Notes 03/06/2024 Tinea unguium (ICD-10 - B35.1) 03/06/2024 [...] Pain in right foot (ICD-10 - M79.671) 03/06/2024 Other myositis of right foot (ICD-10 [...] of right foot (ICD-10 - M77.51) 03/06/2024 Pain in left foot (ICD-10 - [...] in left toe(s) (ICD-10 - M79.675) 06/07/2024 Bursitis of left foot (ICD-10 - M77.52) 03/06/2024 Bursitis of left foot (ICD-10 - M77.52) 11/01/2024 Pain in left toe(s) (ICD-10 - M79.675) 03/06/2024 Pain in right toe(s) (ICD-10 - M79.674) 06/07/2024 Pain in right toe(s) (ICD-10 - M79.674) 03/06/2024 Pain in left toe(s) (ICD-10 - M79.675) 06/07/2024 Pain in left toe(s) (ICD-10 - M79.675) Plan Of Treatment Pending Test Test Name Order Date *Liver Function Test (LFT) 08/25/2023 *Liver Function Test (LFT) 03/06/2024 63902- Debride <25 sq cm 08/25/2023 Next Appt Details Provider Name:Ny Mendoza , 01/10/2025 10:15:00 AM, [facility] [place], [address], Provider Name:Ny Mendoza , 01/24/2025 10:30:00 AM, [facility] [address] [place], [facility] [place] [address], Insurance Providers Payer Name Payer Address Payer Phone Subscriber Number Group Number Insured Name Patient Relationship to Insured Coverage Start Date Coverage End Date [facility] [address] [place] [address] [id number] Martha Nelson Self - patient is the insured Medical (General) History Medical History History ICD Code Back,Hip,and Knee pain Broken bones covid-19 Gall bladder problems High blood pressure Chicken pox Surgical History Surgery Date(Month/Year) knee surgery, left 1993/1994 knee surgery, right 2009 cyst removal 2003 Gall bladder removal 2015
--- OUTSIDE RECORDS SUMMARY | 2024-12-27 15:58 | XMS_ITS ---
Author Organization [facility] Address [address] [place] [address] Care Team Providers Care Injection Moulding Machine Operator Name Role Phone Francoise Solares MD Primary Care Provider Ny Brown [phone] Allergies Allergen (clinical drug ingredient) Drug/Non Drug [...] a day for 30 days 08/23/2024 Active Custom Orthotics as directed 08/25/2023 Active Night Splint AFO - L1930 1 wear at rest for 30 days Active Feldene 20 MG 1 capsule with food Orally Once a day for 30 days 08/01/2023 Not-Taking Ciclopirox 8 % 1 application Manager Food Safety ally Once a day for 30 08/23/2024 Active Bisoprolol Fumarate 5 MG 1 tablet Orally Once a day for 30 day(s) Active Encounters Encounter [facility] [address] [facility]/08/2024 Ny Mendoza Plan Of Treatment Next Appt Details Provider Name:Ny Mendoza , 01/10/2025 10:15:00 AM, [address] [facility], [place], [address], Provider Name:Ny Mendoza , 01/24/2025 10:30:00 AM, [address], [place], [address], Progress Notes * Francisco RAGLANDnDOB:[birth year] (49 yo F)Acc No.[id number]:11/08/2024 Progress Note Patient:?Martha RAGLAND Provider:?Ny Mendoza DPM :1975???Age:49 Y???Sex:Female D ate:11/08/2024 Address:[address] [place], [place] [id number] Pcp:Francoise Solares MD Subjective: * Chief Complaints: * ??? * Medical History:?Back,Hip,an d Knee pain, Broken bones, Covid-19, Gall bladder problems, High blood pressure, Chicken pox. * Surgical History:?knee surge ry, left 1993/1994, knee surgery, right 2009, cyst removal 2003, Gall bladder removal 2015. * Medications:?Taking Bisoprol ol Fumarate 5 MG Tablet 1 tablet Orally [...] with food Orally Once a day * Allergies:?Penicillin: rash, Keflex: rash, Sulfa Antibiotics: rash. Objective: * Vitals:? Assessment: Plan: * Treatment: * Images: * The named appointment provid er may or may not be the originator of this progress note, and it is not deemed complete until electronically signed by the appointment provider. Sign off status: Pending * Provider:?Ny Mendoza DPM Date:?2024 Generated for Gabe chaudhari/Karina/Cynthia on:?12/27/2024 03:57 PM EDT
--- OUTSIDE RECORDS SUMMARY | 2024-12-27 15:58 | XMS_ITS ---
Author [facility] Address [address] [place] [address] Care Team Providers Care Gear Cutter Name Role Phone Francoise Solares MD Primary Care Provider Unavaila ble Black, Yn Unavailable [phone] Allergies Allergen (clinical drug ingredient) Drug/Non Drug [...] 08/23/2024 Active Ciclopirox 8 % 1 application Automotive Hardware Engineer ally Once a day for 30 08/23/2024 [...] 025 Encounters Encounter Location Date Provider Diagnosis [facility] [address] [place] [address] 11/01/2024 Ny Mendoza Plantar fasciitis, right M72.2 [...] Bustos Reji , 01/10/2025 10:15:00 AM, [address] [place], [address], Provider Name:Ny Mendoza , 01/24/2025 10:30:00 AM, [address], [place], [address], Progress Notes * Cierra RAGLANDOB:[birth year] (49 yo F)Acc No.[id number]:11/01/2024 Progress Note Patient:?Martha RAGLAND Provider:?Ny Mendoza DPM :1975???Age:49 Y???Sex:Female D ate:11/01/2024 Address:[address] [place] [address] Pcp:Francoise Solares MD Subjective: * Chief Complaints: [...] no. ?Exercise: no. ?Marital status: . ?Occupation: [employer] ???Drug/Alcohol:?AUDIT-C (Standard)?Did you [...] the past year??No * Follow Up:?as scheduled ([place] son: P&A) * Images: * Sign off status: Completed true * Provider:?Ny Mendoza DPM Date:?2024 Generated for Gabe chaudhari/Karina/Normaitting on:?12/27/2024 03:58 PM EDT History and Physical Notes * HPI (History [...] FOOT MORPHOLOGY: Pes Planus structure , B/L FOOTWEAR EVALUATION: Pt did not present with present orthotics for evaluation MUSCLE STRENGTH: 5/5 [...]
== END 2024-12-27 15:57 | disposition home or self-care (01) ==
LOC: HO.MAMMO 15:56
PROVIDERS: PCP Internal Medicine; Visit Provider Internal Medicine
DX: Z12.31 Encounter for screening mammogram for malignant neoplasm of breast (principal)
CPT/HCPCS: 77063; 77067

== ENCOUNTER → 2024-12-27 16:15 | Outpatient (BNV) | payer OTHER, SELFPAY | PROVIDERS: PCP Internal Medicine; Visit Provider Internal Medicine | DX: Z12.31 Encounter for screening mammogram for malignant neoplasm of breast (principal) | CPT/HCPCS: 77063; 77067 ==

== ENCOUNTER 2025-01-18 07:31 | Outpatient (REF) | payer OTHER, SELFPAY ==
--- OUTSIDE RECORDS SUMMARY | 2025-01-18 07:33 | XMS_ITS ---
Author Organization [facility] Address [address] [place] [address] Care Team Providers Care Crime Scene Technician Name Role Phone Francoise Solares MD Primary Care Provider Unavaila crystal [place], [place] Unavailable [phone] Allergies Allergen (clinical drug ingredient) Drug/Non Drug Allergy documented on EMR Reaction Allergy Type Onset Date Status Keflex rash Drug Allergy Active Penicillin rash Drug Allergy Active Substance with sulfonamide structure and antibacterial mechanism of action (substance) Sulfa Antibiotics rash Drug Allergy Active REASON FOR VISIT Ingrown nail Medications Medication SIG (Take, Route, Frequency, Duration) Notes Start Date End Date Status Feldene 20 MG 1 capsule with food Orally Once a day for 30 days 08/01/2023 Not-Taking Terbinafine HCl 250 MG 1 tablet Orally O nce a day for 7 days days then stop for 3 weeks repeat cycle for 90 days 09/06/2023 Not-Taking Piroxicam 20 MG 1 capsule with food Orally Once a day for 30 days 08/23/2024 Not-Taking Ciclopirox 8 % 1 application Externally Once a day for 30 08/23/2024 Active Nightsplint AFO Wear As directed for as needed 08/25/2023 Not-Taking Ciprofloxacin HCl 500 MG 1 tablet Orally every 12 hrs for 3 day(s) 01/10/2025 Active Bisoprolol Fumarate 5 MG 1 tablet Orally Once a day for 30 day(s) Active Night Splint AFO - L1930 1 wear at rest for 30 days Not-Taking Custom Orthotics as directed 08/25/2023 Not-Taking Social History Tobacco Use: Social History Observation Description Date Details (start date - stop date) Never Smoker NA - NA Tobacco use other than smoking: Question Answer Notes Are you an other tobacco user? No Tobacco Control (Standard) Question Answer Notes Tobacco use: Nonsmoker Additional Findings: Tobacco non-user Current no nsmoker AUDIT-C (Standard) Question Answer Notes Did you have a drink contain ing alcohol in the past year? Yes How often did you have a dri nk containing alcohol in the past year? Monthly or less (1 point) How many drinks did you have on a typical day when you were drinking in the past year? 1 or 2 drinks (0 point) How often did you have six o r more drinks on one occasion in the past year? Less than monthly (1 point) Points 2 Interpretation Negative Vital Signs Height 5ft 1in in 01/10/2025 Weight 251 lbs 01/10/2025 BMI 47.42 kg/m2 01/10/2025 Blood pressure systolic 130 mm Hg 01/11/20 Blood pressure diastolic 45 mm Hg 025 Procedures Procedure Date Ordered Date Performed Result Body Sit e 85520-PIF 01/10/2025 N/A Encounters Encounter Location Date Provider Diagnosis [facility] [address] [place] [address] 01/10/2025 Ny Mendoza Ingrown nail L60.0 Assessments Encounter Date Diagnosis (ICD Code) Assessment Notes Treatment Notes Treatment Clinical Notes Section Notes 01/10/2025 Ingrown nail (ICD-10 - L60.0) Plan Of Treatment Medication Medication Name Sig Start Date Stop Date Notes Ciprofloxacin HCl 500 MG 1 tablet Orally every 12 hrs for 3 day(s) 01/10/2025 Pending Test Test Name Order Date 54963-NBO 01/10/2025 Next Appt Details Follow Up: 2-4 Weeks, Reason : Provider Name:Ny Bustos Reji , 01/24/2025 10:30:00 AM, [address] [facility], [place], [address], Procedure Notes * Category Sub-Category Detail Notes Matricectomy (OP NOTE) Consent The patie nt was brought to the examination room and placed on the table in a supine position. The pre/amanda/postoperative course, risks, complications and alternatives were discussed, understood and accepted by the patient. No guarantees were given regarding the surgical outcome Procedure A digital prep with alcohol or betadine was performed. 3cc of 1 percent Xylocaine Plain local anesthetic was administered to the toe via digital block utilizing aseptic technique. A digital touriquet was applied. The affected toenail portion was undermined, incised and resected to the eponychium and matrix. It was noted to be significantly incurvated and hypertrophied. The nailbed and matrix were curetted and the nail groove, bed and matrix were cauterized with Phenol, 3 applications of 30 seconds each from a cotton tip applicator, no underling bone was identified. The surrounding skin was protected from the Phenol with Bacitracin ointment. The tourniquet was released and capillary fill time was intact to the digit. A sterile Bacitracin dressing was applied Disposition Disposition: The pat ient tolerated the procedure and anesthesia well and left in good condition, alert, oriented and stable in no acute distress. Local wound care instructions were discussed and dispensed. There were no complications and the prognosis is favorable, Recommended alternating/staggering Tylenol XS 2 tabs and Motrin 600mg q 6 hrs ea for discomfort, Rx narcotic postop pain meds were deferred Location , Bilateral borders, T5 Progress Notes * ELLYN FrancisconDOB:[birth year] (49 yo F)Acc No.[id number]:01/10/2025 Progress Note Patient:?Francisco RAGLANDkanu Provider:?Ny Mendoza DPM :1975???Age:49 Y???Sex:Female D ate:01/10/2025 Address:[address] [place], [place] [address] Pcp:Francoise Solares MD Subjective: * Chief Complaints: * ???Ingrown nail * ROS:?General/Constitutional:?Nausea?denies.?Vomiting?denies.?Hunger Thirst?denies.?Loss appetite?denies.?Chills?denies.?Fatigue?denies.?Fever?denies.?Night Sweats?denies.?Unexplained weight loss?denies.?Unexplained [...] no. ?Exercise: no. ?Marital status: . ?Occupation: [employer]. ???Drug/Alcohol:?AUDIT-C (Standard)?Did you have a drink containing alcohol in the past year??Yes ?How often did you have a drink containing alcohol in the past year??Monthly or less (1 point) ?How many drinks did you have on a typical day when you were drinking in the past year??1 or 2 drinks (0 point) ?How often did you have six or more drinks on one occasion in the past year??Less than monthly (1 point) ?Points?2 ?Interpretation?Negative * Medications:?TakingBisoprolo l Fumarate 5 MG Tablet 1 tablet Orally Once a day Ciclopirox 8 % Solution 1 application Externally Once a day Taking Bisoprolol Fumarate 5 MG Tablet 1 tablet Orally Once a day Taking Ciclopirox 8 % Solution 1 application Externally Once a day Not-Taking/PRNNight Splint AFO - L1930 1 wear at rest Custom Orthotics as directed Nightsplint AFO Wear As directed Terbinafine HCl 250 MG Tablet 1 tablet Orally Once a day for 7 days days then stop for 3 weeks repeat cycle Piroxicam 20 MG Capsule 1 capsule with food Orally Once a day Feldene 20 MG Capsule 1 capsule with food Orally Once a day Medication List reviewed and reconciled with the patientNot-Taking/PRN Night Splint AFO - L1930 1 wear at rest Not- Taking/PRN Custom Orthotics as directed Not-Taking/PRN Nightsplint AFO Wear As directed Not-Taking/PRN Terbinafine HCl 250 MG Tablet 1 tablet Orally Once a day for 7 days days then stop for 3 weeks repeat cycle Not-Taking/PRN Piroxicam 20 MG Capsule 1 capsule with food Orally Once a day Not-Taking/PRN Feldene 20 MG Capsule 1 capsule with food Orally Once a day Medication List reviewed and reconciled with the patient * Allergies:?Penicillin: rashK eflex: rashSulfa Antibiotics: rashyes[Allergies Verified] Objective: * Vitals:?Ht: 5ft 1in, Wt:251, BMI:47.42, Shoe size: 7W, BP:130/45mm Hg, Ht-cm: 154.94 cm, Wt-k.85 kg. * Examination: ???Ingrown Nail: ?INSPECTION:?Reveals incurvation, pain on palpation, groove hypertrophy, groove ischemia, Bilateral nail borders, T5.? Assessment: * Assessment: 1.?Ingrown nail - L60.0 (Kari franks)??? Plan: * Treatment: * Procedures:?Matricectomy (OP NOTE):?Location?, Bilateral borders, T5.?Consent?The patient was brought to the examination room and placed on the table in a supine position. The pre/amanda/postoperative course, risks, complications and alternatives were discussed, understood and accepted by the patient. No guarantees were given regarding the surgical outcome.?Procedure?A digital prep with alcohol or betadine was performed. 3cc of 1 percent ?Xylocaine Plain local anesthetic was administered to the toe via digital block utilizing aseptic technique. A digital touriquet was applied. The affected toenail portion was undermined, incised and resected to the eponychium and matrix. It was noted to be significantly incurvated and hypertrophied. The nailbed and matrix were curetted and the nail groove, bed and matrix were cauterized with Phenol, 3 applications of 30 seconds each from a cotton tip applicator, no underling bone was identified. The surrounding skin was protected from the Phenol with Bacitracin ointment. The tourniquet was released and capillary fill time was intact to the digit. A sterile Bacitracin dressing was applied .?Disposition?Disposition: The patient tolerated the procedure and anesthesia well and left in good condition, alert, oriented and stable in no acute distress. Local wound care instructions were discussed and dispensed. There were no complications and the prognosis is favorable, Recommended alternating/staggering Tylenol XS 2 tabs and Motrin 600mg q 6 hrs ea for discomfort, Rx narcotic postop pain meds were deferred.? * Procedure Codes:?38417 REMOV AL OF NAIL BED, Modifiers: T5 A4550 STERILE TRAY * Follow Up:?2-4 Weeks * Images: * Sign off status: Completed true * Provider:?Ny Mendoza DPM Date:?2024 Generated for Gabe chaudhari/Karina/Normaitting on:?01/18/2025 07:33 AM EDT History and Physical Notes * Examination Category Sub-Category Detail Notes Category Not es Ingrown Nail INSPECTION: Reveals incurvat ion, pain on palpation, groove hypertrophy, groove ischemia, Bilateral nail borders, T5
--- OUTSIDE RECORDS SUMMARY | 2025-01-18 07:33 | XMS_ITS ---
Author Organization [facility] Address [address] [place] [address] Care Team Providers Care Washer Blanket Name Role Phone Francoise Solares MD Primary Care Provider Ny Brown [phone] Allergies Allergen (clinical drug ingredient) Drug/Non Drug [...] 08/01/2023 Not-Taking Ciclopirox 8 % 1 application Statistics Tutor ally Once a day for 30 08/23/2024 Active Bisoprolol Fumarate 5 MG 1 tablet Orally Once a day for 30 day(s) Active Encounters Encounter [facility] [address] [facility]/08/[facility] Ny Mendoza Plan Of Treatment Next Appt Details Provider Name:Ny Mendoza , 01/24/2025 10:30:00 AM, [address] [facility], [place], [address], Progress Notes * Cierra RAGLANDOB:[birth year] (49 yo F)Acc No.[id number]:11/08/2024 Progress Note Patient:?Martha RAGLAND Provider:?Ny Mendoza DPM :1975???Age:49 Y???Sex:Female D ate:11/08/2024 Address:[address] [place], [place] [phone] Pcp:Francoise Solares MD Subjective: * Chief Complaints: [...] Provider:?Ny Mendoza DPM Date:?2024 Generated for Gabe chaudhari/Karina/eTjohnsmitting on:?01/18/2025 07:33 AM EDT
--- OUTSIDE RECORDS SUMMARY | 2025-01-18 07:33 | XMS_ITS ---
Author Organization [facility] Address [address] [place] [address] Care Team Providers Care Refractory Grinder Operator Name Role Phone Francoise Solares MD Primary Care Provider Ny Brown [phone] Encounters Encounter Location Date Provider Diagnosis [address] [address] 11/22/2024 Ny Mendoza Plan Of Treatment Next Appt Details Provider Name:Ny Bustos Reji , 01/24/2025 10:30:00 AM, [address] [place] [address], [place], [address], Progress Notes * Cierra RAGLANDOB:[birth year] (49 yo F)Acc No.[id number]:11/22/2024 Progress Notes Patient:?Martha RAGLAND Provider:?Ny Mendoza DPM :1975???Age:49 Y???Sex:Female D ate:11/22/2024 Address:[address] [place] [address] Pcp:Francoise Solares MD Subjective: * Chief Complaints: [...] Mendoza DPM Date:?2024 Generated for Gabe chaudhari/Karina/Cynthia on:?01/18/2025 07:33 AM EDT
--- OUTSIDE RECORDS SUMMARY | 2025-01-18 07:34 | XMS_ITS | Patient Health Record ---
[facility] Address [address] [place] [address] Care Team Providers Care Corporate Analyst Name Role Phone Francoise Solares MD Primary Care Provider Unavaila crystal MendozaBradNy Unavailable [phone] Allergies Allergen (clinical drug ingredient) Drug/Non Drug [...] a day for 30 days 08/01/2023 Not-Taking Ciprofloxacin HCl 500 MG 1 tablet Orally every 12 hrs for 3 day(s) 01/10/2025 Active Terbinafine HCl 250 MG 1 tablet [...] Not-Taking Custom Orthotics as directed 08/25/2023 Not-Taking Nightsplint AFO Wear As directed for as needed 08/25/2023 Not-Taking Social History Tobacco Use: Social [...] monthly (1 point) Points 2 Interpretation Negative Problems Problem Type SNOMED Code ICD Code Onset Dates Problem Status W/U Status Risk Notes Problem Ulcer of toe of right foot (disorder) (47948632777908588) Skin ulcer of toe of right foot, limited to breakdown of skin (L97.511) Active confirmed Nonapplicable Problem [id number] Plantar fasciitis, right (M72.2) Active confirmed Problem Ulcer of toe of left foot (disorder) (86177692529430323) Skin ulcer of toe of left foot, limited to breakdown of skin (L97.521) Active confirmed Vital Signs Blood pressure diastolic 45 mm Hg 01/10/2025 Height 5ft 1in in 01/10/2025 Blood pressure systolic 130 mm Hg 01/10/2025 Weight 251 lbs 01/10/2025 BMI 47.42 kg/m2 01/10/2025 Procedures Procedure Date Ordered Date Performed Result Body Sit e 79823-JOT 01/10/2025 N/A Encounters Encounter Location Date Provider Diagnosis [facility] [place] [address] [place] [address] 03/06/2024 Ny Black Plantar fasciitis, bilateral M72.2 ; Tinea unguium B35.1 ; Pain in right foot M79.671 ; Other myositis of right foot M60.871 ; Bursitis of right foot M77.51 ; Pain in left foot M79.672 ; Other myositis of left foot M60.872 ; Bursitis of left foot M77.52 ; Pain in right toe(s) M79.674 and Pain in left toe(s) M79.675 [facility] [address] [facility] [place] [address] 06/07/2024 Ny Black Plantar fasciitis, bilateral M72.2 ; Tinea unguium B35.1 ; Pain in right foot M79.671 ; Other myositis of right foot M60.871 ; Bursitis of right foot M77.51 ; Pain in left foot M79.672 ; Other myositis of left foot M60.872 ; Bursitis of left foot M77.52 ; Pain in right toe(s) M79.674 and Pain in left toe(s) M79.675 [facility] [address] [facility] [place] [place] [address] 08/23/2024 Ny Black Tinea unguium B35.1 ; Plantar fasciitis, right M72.2 ; Pain in right foot M79.671 ; Other myositis of right foot M60.871 ; Bursitis of right foot M77.51 ; Pain in right toe(s) M79.674 and Pain in left toe(s) M79.[address] [address] 11/01/2024 Ny Black Plantar fasciitis, right M72.2 ; Ingrown nail L60.0 ; Tinea unguium B35.1 ; Pain in right foot M79.671 ; Other myositis of right foot M60.871 ; Bursitis of right foot M77.51 ; Pain in right toe(s) M79.674 and Pain in left toe(s) M79.[address] [address] 01/10/2025 Ny Black Ingrown nail L60.0 [facility] [address] [place] [address] 05/02/2024 Ny Black [address] [place] [address] 08/06/2024 Ny Black [address] [address] 08/27/2024 Ny Black Assessments Encounter Date Diagnosis [...] 11/01/2024 Plantar fasciitis, right (ICD-10 - M72.2) 01/10/2025 Ingrown nail (ICD-10 - L60.0) 11/01/2024 Tinea unguium (ICD-10 - B35.1) 08/23/2024 [...] (LFT) 08/25/2023 *Liver Function Test (LFT) 03/06/2024 28251-BXN 01/10/2025 92458- Debride <25 sq cm 08/25/2023 Next Appt Details Provider Name:Ny Bustos Reji , 01/24/2025 10:30:00 AM, [address] [facility], [place], [address], Insurance Providers Payer Name Payer Address Payer Phone Subscriber Number Group Number Insured Name Patient Relationship to Insured Coverage Start Date Coverage End Date [facility] [address] [place] [address] [id number] Martha Nelson Self - patient is the insured Medical (General) History Medical History History ICD Code Back,Hip,and Knee pain Broken bones covid-19 Gall bladder problems High blood pressure Chicken pox Surgical History Surgery Date(Month/Year) knee surgery, left knee surgery, right 2009 cyst removal 2003 Gall bladder removal 2015
--- OUTSIDE RECORDS SUMMARY | 2025-01-18 07:34 | XMS_ITS | Data Portability ---
Author Organization [place] - [facility], [address] Address [address] [place] [address] Care Team Providers Care Pen Or Pencil Assembly Machine Operator Name Role Phone [facility] Primary Care Provider [phone] Assessment No assessment recorded. Plan of Treatment Reminders Order Date Submit Date Provider Last Modified By Organization Details Last Modified Time Details Appointments None recorded. Lab None recorded. Referral None recorded. Procedures None recorded. Surgeries None recorded. Imaging None recorded. Medication Orders doxycycline hyclate 100 mg capsule [email or web address] [id number], [address] [place], [address], 15:52:15 Patient TargetsNo targets recorded. Patient Instructions Encounter Date Encounter Id Patient Instructions Last Modified By Organization Details Last Modified Time 11/04/2022 [id number] ingrown toenail: care instructions [email or web address] Not available 11/19/2022 15:54:20 Reason for Referral None Reported. Problems Name Problem SNOMED Code Status Onset Date Resolution Date Notes Provider Name and Address Organization Details Recorded Time Hypertensive disorder [id number] Active JALEN bass [place] - [facility] 3 12:27:29 Problem Notes None recorded. Procedures Surgical History Date Name Laterality Status Provider Name and Address Organization Details Recorded Time Nail Avulsion - Partial completed ASHTYN BAUTISTA MD [facility] [place], [address], [place] - [facility] 11/04/2022 18:25:36 procedure on knee completed JALEN RIZZO [place] - [facility] 11/04/2022 12:28:55 Imaging Results None recorded. Procedure Notes None recorded. Medical Equipment None Reported. Allergies Allergen ID Allergen Name Allergen Category Reaction Reaction Severity Criticality Documentation Date Start Date Code Code System Note Provider Name and Address Organization Details Recorded Time 510195 Product containin g penicilli n (product) medicatio n hives Not available Not available 11/04/2022 13203 8001 SNOMED JALENROGELIO FREITAS-RIVE RA null, [place] - [facility] 3 12:26:34 092041 Substance with sulfonami de structure and antibacte rial mechanism of action (substanc e) medicatio n hives Not available Not available 11/04/2022 89035 8003 SNOMED JALENROGELIO FREITAS-RIVE RA null, [place] - [facility] 3 12:26:45 899249 Keflex medicatio n hives Not available Not available 11/04/202236103 7 RxNorm JALEN FREITAS-RIVE null, [place] - [...] Updated DateTime 3 154.94 cm 45.3 kg/m2 518443. 17 g 2 99 % 99 % [...] SNOMED-CT Code Diagnosis ICD10 Code Diagnosis Note [id number] [address] [place] [address] 08/29/2020 17:05:48 08/29/2020 18:45:33 [id number] [address] [place] [address] 03/13/2021 12:04:02 03/13/2021 13:23:04 [id number] ASHTYN BAUTISTA MD [address] [place] [address] 11/04/2022 12:07:49 11/04/2022 17:33:38 Cellulitis of toe of right foot [id number] 4919183 L03.031 Change the dressing in 2 days.F/u for any increased swelling, redness, drainage, fever, or red streaks that travel up from the toe. Ingrowing nail of toe of right foot [id number] 1721183 L60.0 Change the dressing in 2 days.may [...] Armijo Member ID Guarantor Name 03/13/2021 1 [facility] [id number] 1 Martha Deanr [id number] Martha Chandlereler 11/04/2022 1 [facility] [id number] 1 Martha Chandlereler [id number] Martha Chandlereler Notes Date Note Type Note Provider Name and Address Organization Details Recorded Time 11/04/2022 text/html ToesReported bypatient.Location :right Quality:aching; throbbing; sharp; superficial Severity:severe Duration:1.5 months Timing:chronic Context:cannot identify; atraumatic Alleviating Factors:nothing helps Aggravating Factors:Wearing shoes. pt has pain in the right great toe, has an ingrown nail, redness x 1 1/2 mo. ASHTYN BAUTISTA MD [address] [place], [place] [address], [address], [place] - [facility] 11/19/2022 15:54:35 OBGyn Episode No OBEpisode recorded.
[2025-01-18 11:43] LABS: MANUAL DIFF FLAG NO
[2025-01-18 12:07] LABS: Basophils Absolute Auto 0.1 X10*3/uL (0.0-0.2); Basophils Percent Auto 0.8 % (0-2); Eosinophils Absolute Auto 0.3 X10*3/uL (0.0-0.4); Eosinophils Percent Auto 4.3 % (0-4); Hematocrit 42.1 % (37.0-47.0); Hemoglobin 13.3 g/dl (12.0-16.0); Imm Gran Abs Auto 0.03 X10*3/uL (0.00-0.03); Imm Gran Pct Auto 0.5 % (0.0-0.4); Lymphocytes Absolute Auto 1.3 X10*3/uL (1.2-4.9); Lymphocytes Percent Auto 20.1 % (20-40); Mean Corpuscular HGB Conc 31.6 g/dl (31.0-35.0); Mean Corpuscular Hemoglobin 31.7 pg (27.0-33.0); Mean Corpuscular Volume 100.5 fL (80.0-98.0); Monocytes Absolute Auto 0.6 X10*3/uL (0.1-1.2); Monocytes Percent Auto 8.4 % (2-11); Neutrophils Absolute Auto 4.4 x10*3/uL (2.0-8.3); Neutrophils Percent Auto 65.9 % (45-73); Platelet Count 269 X10*3/uL (160-400); Red Blood Count 4.19 X10*6/uL (4.20-5.50); Red Cell Distribution Width 14.3 % (11.0-16.0); White Blood Count 6.6 X10*3/uL (4.8-10.8)
[2025-01-18 12:52] LABS: Alanine Aminotransferase 29 U/L (0-31); Albumin Level 3.8 g/dL (3.5-5.0); Anion Gap 11 (12-20); Aspartate Amino Transferase 28 U/L (5-31); Bilirubin Total 0.5 mg/dL (0.0-1.0); Blood Urea Nitrogen 15 mg/dL (9-16); Calcium 8.8 mg/dL (8.4-10.2); Carbon Dioxide 25 mmol/L (22-29); Chloride 107 mmol/L (96-108); Cholesterol 145 mg/dL (<200); Estimated Glomerular Filt Rate > 60; Glucose Fasting 99 mg/dL (60-99); HDL Cholesterol 53 mg/dL (>40); LDL Cholesterol Calculated 75 mg/dL (<100); Potassium 4.6 mmol/L (3.3-5.1); Sodium 138 mmol/L (135-145); Total Protein 7.2 g/dL (6.5-8.0); Triglycerides 85 mg/dL (<150)
[2025-01-18 12:58] LABS: TSH reflex Free T4 2.22 uIU/mL (0.32-4.0); Vitamin D 25-OH Total 17.7 ng/mL (>30)
[2025-01-18 13:12] LABS: Alkaline Phosphatase 88 U/L (39-117)
== END 2025-01-18 07:32 | disposition home or self-care (01) ==
LOC: HO.HMGCLDS 07:31
PROVIDERS: PCP Internal Medicine; Visit Provider Internal Medicine
DX: Z00.00 Encounter for general adult medical examination without abnormal findings (principal); Z13.6 Encounter for screening for cardiovascular disorders
CPT/HCPCS: 36415; 80053; 80061; 82306; 84443; 85025

== ENCOUNTER 2025-01-20 07:50 | Outpatient (AMB) | payer OTHER, SELFPAY ==
--- OUTSIDE RECORDS SUMMARY | 2025-01-20 07:53 | XMS_ITS ---
Author Organization [facility] Address [address] [place] [address] Care Team Providers Care Student Services Coordinator Name Role Phone Francoise Solares MD Primary Care Provider Ny Brown [phone] Allergies Allergen (clinical drug ingredient) Drug/Non Drug [...] 08/01/2023 Not-Taking Ciclopirox 8 % 1 application J2Ee Consultant ally Once a day for 30 08/23/2024 Active Bisoprolol Fumarate 5 MG 1 tablet Orally Once a day for 30 day(s) Active Encounters Encounter [facility] [address] 11/08/2024 Ny Mendoza Plan Of Treatment Next Appt Details Provider Name:Ny Mendoza , 01/24/2025 10:30:00 AM, [address] [facility], [place], [address], Progress Notes * Cierra RAGLANDOB:[birth year] (49 yo F)Acc No.[id number]:11/08/2024 Progress Note Patient:?Martha RAGLAND Provider:?Ny Mendoza DPM :1975???Age:49 Y???Sex:Female D ate:11/08/2024 Address:[address] [place], [place] [address] Pcp:Francoise Solares MD Subjective: * Chief Complaints: [...] Mendoza DPM Date:?2024 Generated for Gabe chaudhari/Karina/eTjohnsmitting on:?01/20/2025 07:53 AM EDT
--- OUTSIDE RECORDS SUMMARY | 2025-01-20 07:53 | XMS_ITS ---
Author Organization [facility] Address [address] [place] [address] Care Team Providers Care Display Artist Name Role Phone Francosie Solares MD Primary Care Provider Ny Brown [phone] Encounters Encounter Location Date Provider Diagnosis [address] [address] 11/22/2024 Ny Mendoza Plan Of Treatment Next Appt Details Provider Name:Ny Bustos eRji , 01/24/2025 10:30:00 AM, [address] [place] [address], [place], [address], Progress Notes * Cierra RAGLANDOB:[birth year] (49 yo F)Acc No.[id number]:11/22/2024 Progress Notes Patient:?Martha RAGLAND Provider:?Ny Mendoza DPM :1975???Age:49 Y???Sex:Female D ate:11/22/2024 Address:[address] [place] [address] Pcp:Francoise Solares MD Subjective: * Chief Complaints: [...] Mendoza DPM Date:?2024 Generated for Gabe chaudhari/Karina/Cynthia on:?01/20/2025 07:53 AM EDT
--- OUTSIDE RECORDS SUMMARY | 2025-01-20 07:53 | XMS_ITS | Data Portability ---
Author Organization [place] - [facility], [address] Address [address] [place] [address] Care Team Providers Care Application Security Developer Name Role Phone [facility] Primary Care Provider [phone] Assessment No assessment recorded. Plan of Treatment Reminders Order Date Submit Date Provider Last Modified By Organization Details Last Modified Time Details Appointments None recorded. Lab None recorded. Referral None recorded. Procedures None recorded. Surgeries None recorded. Imaging None recorded. Medication Orders doxycycline hyclate 100 mg capsule 2022 023 [email or web address] [id number] [facility] #[id number], [address] [place], [address], 15:52:15 Patient TargetsNo targets recorded. Patient Instructions Encounter Date Encounter Id Patient Instructions Last Modified By Organization Details Last Modified Time 11/04/2022 [id number] ingrown toenail: care instructions [email or web address] Not available 11/19/2022 15:54:20 Reason for Referral None Reported. Problems Name Problem SNOMED Code Status Onset Date Resolution Date Notes Provider Name and Address Organization Details Recorded Time Hypertensive disorder 16072608 Active JALEN bass [place] - [facility] 3 12:27:29 Problem Notes None recorded. Procedures Surgical History Date Name Laterality Status Provider Name and Address Organization Details Recorded Time Nail Avulsion - Partial completed ASHTYN BAUTISTA MD [facility] [place], [address], [place] - [facility] 11/04/2022 18:25:36 procedure on knee completed JALEN RIZZO PA - [facility] 11/04/2022 12:28:55 Imaging Results None recorded. Procedure Notes None recorded. Medical Equipment None Reported. Allergies Allergen ID Allergen Name Allergen Category Reaction Reaction Severity Criticality Documentation Date Start Date Code Code System Note Provider Name and Address Organization Details Recorded Time 126964 Product containin g penicilli n (product) medicatio n hives Not available Not available 11/04/2022 87874 8001 SNOMED JALENROGELIO FREITAS-RIVE RA null, [place] - [facility] 3 12:26:34 319293 Substance with sulfonami de structure and antibacte rial mechanism of action (substanc e) medicatio n hives Not available Not available 11/04/2022 80756 8003 SNOMED JALENROGELIO FREITAS-RIVE RA null, [place] - [facility] 3 12:26:45 466483 Keflex medicatio n hives Not available Not available 11/04/202254666 7 RxNorm JALEN FREITAS-RIVE null, [place] - [...] Updated DateTime 3 154.94 cm 45.3 kg/m2 553093. 17 g 2 99 % 99 % [...] SNOMED-CT Code Diagnosis ICD10 Code Diagnosis Note [id number] [address] [place] [address] 08/29/2020 17:05:48 08/29/2020 18:45:33 [id number] [address] [place] [address] 03/13/2021 12:04:02 03/13/2021 13:23:04 [id number] ASHTYN BAUTISTA MD [address] [place] [address] 11/04/2022 12:07:49 11/04/2022 17:33:38 Cellulitis of toe of right foot [id number] 9616282 L03.031 Change the dressing in 2 days.F/u for any increased swelling, redness, drainage, fever, or red streaks that travel up from the toe. Ingrowing nail of toe of right foot [id number] 8749371 L60.0 Change the dressing in 2 days.may [...] Armijo Member ID Guarantor Name 03/13/2021 1 [facility] [id number] 1 Martha Deanr [id number] Martha Chandlereler 11/04/2022 1 [facility] [id number] 1 Martha Chandlereler [id number] Martha Chandlereler Notes Date Note Type Note Provider Name and Address Organization Details Recorded Time 11/04/2022 text/html ToesReported bypatient.Location :right Quality:aching; throbbing; sharp; superficial Severity:severe Duration:1.5 months Timing:chronic Context:cannot identify; atraumatic Alleviating Factors:nothing helps Aggravating Factors:Wearing shoes. pt has pain in the right great toe, has an ingrown nail, redness x 1 1/2 mo. ASHTYN BAUTISTA MD [address] [place], [place] [address], [address], [place] - [facility] 11/19/2022 15:54:35 OBGyn Episode No OBEpisode recorded.
--- OUTSIDE RECORDS SUMMARY | 2025-01-20 07:53 | XMS_ITS ---
Author Organization [facility] Address [address] [place] [address] Care Team Providers Care Linen Manager Name Role Phone Francoise Solares MD Primary Care Provider Unavaila crystal [place], [place] Unavailable [phone] Allergies Allergen (clinical drug ingredient) Drug/Non Drug [...] Ordered Date Performed Result Body Sit e 44967-IUW 01/10/2025 N/A Encounters Encounter Location Date Provider Diagnosis [facility] [address] [place] [address] 01/10/2025 Ny Mendoza Ingrown nail L60.0 Assessments Encounter Date Diagnosis (ICD Code) Assessment Notes Treatment Notes Treatment Clinical Notes Section Notes 01/10/2025 Ingrown nail (ICD-10 - L60.0) Plan Of Treatment Medication Medication Name Sig Start Date Stop Date Notes Ciprofloxacin HCl 500 MG 1 tablet Orally every 12 hrs for 3 day(s) 01/10/2025 Pending Test Test Name Order Date 98191-QFO 01/10/2025 Next Appt Details Follow Up: 2-4 Weeks, Reason : Provider Name:Ny Bustos Reji , 01/24/2025 10:30:00 AM, [address] [facility], [place], [address], Procedure Notes * Category Sub-Category Detail Notes [...] * ELLYN FrancisconDOB:[birth year] (49 yo F)Acc No.[id number]:01/10/2025 Progress Note Patient:?Francisco RAGLANDkanu Provider:?Ny Mendoza DPM :1975???Age:49 Y???Sex:Female D ate:01/10/2025 Address:[address] [place], [place] [id number] Pcp:Francoise Solares MD Subjective: * Chief Complaints: [...] no. ?Exercise: no. ?Marital status: . ?Occupation: [employer]. ???Drug/Alcohol:?AUDIT-C (Standard)?Did you have a drink containing [...] postop pain meds were deferred.? * Procedure Codes:?65982 REMOV AL OF NAIL BED, Modifiers: T5 A4550 STERILE TRAY * Follow Up:?2-4 Weeks * Images: * Sign off status: Completed true * Provider:?Ny Mendoza DPM Date:?2024 Generated for Gabe chaudhari/Karina/Normaitting on:?01/20/2025 07:53 AM EDT History and Physical Notes * Examination Category Sub-Category Detail Notes Category Not es Ingrown Nail INSPECTION: Reveals incurvat ion, pain on palpation, groove hypertrophy, groove ischemia, Bilateral nail borders, T5
--- OUTSIDE RECORDS SUMMARY | 2025-01-20 07:54 | XMS_ITS | Patient Health Record ---
Author [facility] Address [address] [place] [address] Care Team Providers Care Bullet Lubricant Mixer Name Role Phone Francoise Solares MD Primary Care Provider Unavaila crystal MendozaBradNy Unavailable [phone] Allergies Allergen (clinical drug ingredient) Drug/Non Drug [...] Ulcer of toe of right foot (disorder) (04698923370735399) Skin ulcer of toe of right foot, limited to breakdown of skin (L97.511) Active confirmed Nonapplicable Problem 36996997894727400 Plantar fasciitis, right (M72.2) Active confirmed Problem Ulcer of toe of left foot (disorder) (63478098064650997) Skin ulcer of toe of left foot, limited to breakdown of skin (L97.521) Active confirmed Vital Signs Blood pressure diastolic 45 mm Hg 01/10/2025 Height 5ft 1in in 01/10/2025 Blood pressure systolic 130 mm Hg 01/10/2025 Weight 251 lbs 01/10/2025 BMI 47.42 kg/m2 01/10/2025 Procedures Procedure Date Ordered Date Performed Result Body Sit e 53282-TDQ 01/10/2025 N/A Encounters Encounter Location Date Provider Diagnosis [facility] [address] [place] [address] 03/06/2024 Ny Black Plantar fasciitis, bilateral M72.2 ; Tinea unguium B35.1 ; Pain in right foot M79.671 ; Other myositis of right foot M60.871 ; Bursitis of right foot M77.51 ; Pain in left foot M79.672 ; Other myositis of left foot M60.872 ; Bursitis of left foot M77.52 ; Pain in right toe(s) M79.674 and Pain in left toe(s) M79.675 [facility] [address] [facility] [place] [address] 06/07/2024 Ny Black Plantar fasciitis, bilateral M72.2 ; Tinea unguium B35.1 ; Pain in right foot M79.671 ; Other myositis of right foot M60.871 ; Bursitis of right foot M77.51 ; Pain in left foot M79.672 ; Other myositis of left foot M60.872 ; Bursitis of left foot M77.52 ; Pain in right toe(s) M79.674 and Pain in left toe(s) M79.675 [facility] [address] [facility] [place] [address] 08/23/2024 Ny Black Tinea unguium B35.1 ; Plantar fasciitis, right M72.2 ; Pain in right foot M79.671 ; Other myositis of right foot M60.871 ; Bursitis of right foot M77.51 ; Pain in right toe(s) M79.674 and Pain in left toe(s) M79.[address] [address] 11/01/2024 Ny Black Plantar fasciitis, right M72.2 ; Ingrown nail L60.0 ; Tinea unguium B35.1 ; Pain in right foot M79.671 ; Other myositis of right foot M60.871 ; Bursitis of right foot M77.51 ; Pain in right toe(s) M79.674 and Pain in left toe(s) M79.[address] [address] 01/10/2025 Ny Black Ingrown nail L60.0 [facility] [address] [place] [address] 05/02/2024 Ny Black [address] [place] [address] 08/06/2024 Ny Black [address] [address] 08/27/2024 Ny Black Assessments Encounter Date Diagnosis [...] (LFT) 08/25/2023 *Liver Function Test (LFT) 03/06/2024 75552-VIO 01/10/2025 61193- Debride <25 sq cm 08/25/2023 Next Appt Details Provider Name:Ny Bustos Reji , 01/24/2025 10:30:00 AM, [address] [facility], [place], [address], Insurance Providers Payer Name Payer Address Payer Phone Subscriber Number Group Number Insured Name Patient Relationship to Insured Coverage Start Date Coverage End Date [facility] [address] [place] [address] [id number] Martha Nelson Self - patient is the insured Medical (General) History Medical History History ICD Code Back,Hip,and Knee pain Broken bones covid-19 Gall bladder problems High blood pressure Chicken pox Surgical History Surgery Date(Month/Year) knee surgery, left knee surgery, right 2009 cyst removal 2003 Gall bladder removal 2015
[2025-01-20 08:12] VITALS: BP 120/80; PULSE 86; RESP 20; TEMP 36.8; O2SAT 96; BMI 52.1
--- NOTE | 2025-01-20 08:12 | A.OFFPC_ITS ---
Vital Signs 01/20/25 08:12 Height 5 ft 1 in Weight 276 lb BMI 52.1 BP 120/80 Blood Pressure Location Lt brachial Position Sitting Respiration 20 Pulse 86 Pulse Source Pulse Oximeter Temp 98.2 F Temp Source Oral Pulse Oximetry (%) 96 Oxygen Delivery Method Room Air Intake Visit Reasons: Annual Physical Intake Note: Pt is here today for PE. Allergies amlodipine Adverse Reaction (Intermediate, Verified 01/20/25 08:14) cough cephalexin [From Keflex] Adverse Reaction (Verified 01/20/25 08:14) Rash Penicillins Adverse Reaction (Verified 01/20/25 08:14) Rash Sulfa (Sulfonamide Antibiotics) Adverse Reaction (Verified 01/20/25 08:14) Rash Tobacco use date assessed: 01/20/25 Dental Screening Dental Screen Date: 01/20/25 Did you have a dental visit in the last 12 months?: Yes Did you have a dental problem in the last 6 months where you did not have access to dental care?: No Was dental information given to patient?: Patient has dentist HPI Annual Physical HPI Details Pt presents for PE. Pt has been trying to lose weight decreasing caloric intake increasing physical activity for over 6 months unsuccessfully. Patient complains of chronic left knee pain and stiffness worse when walking longer distance. She is established with orthopedic surgeon and has been getting cortisone injections. [facility] Medical History (Updated 12/13/24 @ 13:51 by Tanisha Frazier PA-C) HTN (hypertension) Irregular menses Anxiety Enlarged thyroid Grieving Overweight Normal pelvic exam Annual physical exam Surgical History (Updated 01/20/25 @ 09:25 by Francoise Solares MD) Hx of colonoscopy Hx of cholecystectomy S/P knee surgery Family History Father HTN (hypertension) DM (diabetes mellitus) Mother HTN (hypertension) Stroke Social History Household Members Other:: , no children, work at [employer], Housing: House Patient Tobacco Use Status: Never used Tobacco e-Cigarette/Vaping Use: Never Used Second Hand Smoke Exposure: Yes service: No Current occupational status: employed Current occupation: [employer] Cognitive needs: No Hearing needs: No Vision needs: No Questionnaire PHQ-9 Over the last 2 weeks, how often have you been bothered by any of the following problems? 1. Little interest or pleasure in doing things: not at all 2. Feeling down, depressed, or hopeless: not at all 3. Trouble falling or staying asleep, or sleeping too much: not at all 4. Feeling tired or having little energy: not at all 5. Poor appetite or overeating: not at all 6. Feeling bad about yourself - or that you are a failure or have let yourself or your family down: not at all 7. Trouble concentrating on things, such as reading the newspaper or watching television: not at all 8. Moving or speaking so slowly that other people could have noticed. Or the opposite - being so fidgety or restless that you have been moving around a lot more than usual: not at all 9. Thoughts that you would be better off or of hurting yourself in some way: not at all Total score: 0 Depression Screening Interpretation: Negative Depression Screening Done: Yes 17914 - PHQ-9 Billing: Yes Source: Developed by Drs. Sridhar Gill, Mercedez Devine, Raheem Horner and colleagues, with an educational brittanie from [employer]. Thrive Questionnaire Date Thrive assessed: 01/20/25 I am a: Patient What is your living situation today?: I have a steady place to live Within the past 12 months, did the food you bought not last and you didn't have the money to get more?: Never true Within the past 12 months, did you worry whether your food would run out before you got money to buy more?: Never true Do you have trouble paying for medicines?: No Do you have trouble getting transportation to medical appointments?: No Do you have trouble paying your heating and electricity bill?: No Do you have trouble taking care of your child, family member or friend?: No Do you have trouble with day-to-day activities such as bathing, preparing meals, shopping, managing finances, etc.?: No Are you currently unemployed and looking for a job?: No Are you interested in more education?: No Please select the resources that you would like help with: None Currently or been in a relationship where the following occur: No concerns reported THRIVE Score: 0 AUDIT C Alcohol Use Questionnaire (AUDIT-C) 1. How often do you have a drink containing alcohol?: Monthly or less 2. How many drinks containing alcohol do you have on a typical day when you are drinking?: 1 or 2 3. How often do you have six or more drinks on one occasion?: Never Total Score: 1 CARLOS-7 AMB Questionnaire CARLOS-7 Date CARLOS - 7 assessed: 01/20/25 Feeling nervous, anxious, or on edge: 0 = Not at all Not being able to stop or control worryin = Not at all Worrying too much about different things: 0 = Not at all Trouble relaxin = Not at all Being so restless that it is hard to sit still: 0 = Not at all Becoming easily annoyed or irritable: 0 = Not at all Feeling afraid as if something awful might happen: 0 = Not at all Total CARLOS-7 score (0-4 normal; 5-9 mild; 10-14 moderate; 15-21 severe): 0 Source: Developed by Drs. Sridhar Gill, Mercedez Devine, Raheem Horner and colleagues, with an educational brittanie from [employer]. CARLOS-7 Assessment Billing CARLOS-7 Assessment Tool: CARLOS-7 Assessment 28432 Review of Systems Const All systems reviewed & are unremarkable except as noted in HPI and below Reports no additional complaints Eyes Reports no additional complaints ENT Reports no additional complaints Card Reports no additional complaints Resp Reports no additional complaints GI Reports no additional complaints Reports no additional complaints Physical exam (Primary Care) Vital Signs: Last Vital Signs Temp 98.2 F 01/20/25 08:12 Pulse 86 01/20/25 08:12 Resp 20 01/20/25 08:12 BP 120/80 01/20/25 08:12 Pulse Ox 96 01/20/25 08:12 Oxygen Delivery Method Room Air 01/20/25 08:12 BMI result Body Mass Index 52.1 Tobacco/Smoking Status: Tobacco use Status Tobacco use date assessed 01/20/25 01/20/25 08:18 Patient Tobacco Use Status Never used Tobacco 01/20/25 08:18 e-Cigarette/Vaping Use Never Used 01/20/25 08:18 PHQ-9: PHQ-9 Score PHQ-9: Total score 0 01/20/25 08:18 Depression Screening Interpretation: Negative Thrive Assessment: Date of Thrive Assessment Date Thrive assessed 01/20/25 01/20/25 08:18 Currently or been in a relationship where the following occur: No concerns reported Const General: no acute distress HENMT Head: Yes normal to inspection Ears: hearing grossly normal bilaterally General nose exam: Normal external nose present Face and sinus: Yes normal facial exam Mouth: Normal oral and palatal mucosa present Throat: Yes posterior oropharynx normal Eyes General: appearance normal, both eyes and all related structures Neck Neck: Yes no lymphadenopathy and Yes supple Resp Effort & Inspection: normal respiratory effort Auscultation: clear to auscultation bilaterally Cardio Rhythm: regular rhythm Heart sounds: S1 normal heart sound present and S2 normal heart sound present GI Inspection: Yes normal to inspection Palpation (GI): Soft to palpation Percussion: Yes normal to percussion Auscultation: normal bowel sounds Coding Level of Care Code Est Pt Prev Care 40-64y(04028) Diagnoses Obesity, morbid, BMI 40.0-49.9 E66.01 HTN (hypertension) I10 Annual physical exam Z00.00 Hx of colonoscopy Z98.890 Additional Codes CARLOS-7 Assessment Billing - CARLOS-7 Assessment Tool: CARLOS-7 Assessment 67597 ([id number]) PHQ-9 - 20611 - PHQ-9 Billing: Yes ([id number]) Assessment & Plan Assessment & Plan (1) Obesity, morbid, BMI 40.0-49.9: Code(s): E66.01 - Morbid (severe) obesity due to excess calories Category: Medical Plan: Continue decreasing caloric intake increasing physical activity discussed with the patient. Patient will check with her insurance coverage for GLP 1 agonist and will try it (2) HTN (hypertension): Code(s): I10 - Essential (primary) hypertension Category: Medical Plan: Continue bisoprolol (3) Annual physical exam: Code(s): Z00.00 - Encounter for general adult medical examination without abnormal findings Category: Medical Plan: Well-balanced diet regular physical activity discussed with the patient she is up-to-date with mammogram colonoscopy and Pap by dean of education (4) Hx of colonoscopy: Comment: 09/25/2023 Sushil Code(s): Z98.890 - Other specified postprocedural states Category: Surgical Plan: Up-to-date with colonoscopy Medications: Refilled bisoprolol fumarate 5 mg PO DAILY 90 tabs 3RF
== END 2025-01-20 08:52 | disposition home or self-care (01) ==
PROVIDERS: PCP Internal Medicine; Visit Provider Internal Medicine
DX: Z00.00 Encounter for general adult medical examination without abnormal findings (principal); E66.01 Morbid (severe) obesity due to excess calories; Z68.43 Body mass index [BMI] 50.0-59.9, adult; I10 Essential (primary) hypertension; Z98.890 Other specified postprocedural states

== ENCOUNTER → 2025-01-20 07:50 | Outpatient (BNVA) | payer OTHER, SELFPAY | PROVIDERS: PCP Internal Medicine; Visit Provider Internal Medicine | DX: Z00.00 Encounter for general adult medical examination without abnormal findings (principal); I10 Essential (primary) hypertension; E66.01 Morbid (severe) obesity due to excess calories; Z68.43 Body mass index [BMI] 50.0-59.9, adult; Z79.899 Other long term (current) drug therapy | CPT/HCPCS: 96127 ==

== ENCOUNTER 2025-05-31 09:37 | Outpatient (REF) | payer OTHER, SELFPAY ==
--- OUTSIDE RECORDS SUMMARY | 2024-11-08 04:45 | XMS_ITS ---
Author Organization [facility] Address [address] [place] [address] Care Team Providers Care Pillowcase Cleaner Name Role Phone Francoise Solares MD Primary Care Provider Ny Brown [phone] Allergies Allergen (clinical drug ingredient) Drug/Non Drug [...] 08/01/2023 Not-Taking Ciclopirox 8 % 1 application Pillowcase Cleaner ally Once a day; Duration: 30 08/23/2024 Active Bisoprolol Fumarate 5 MG 1 tablet Orally Once a day; Duration: 30 day(s) Active Encounters [facility] [address] [facility]/08/[facility] Ny Mendoza Plan Of Treatment No Information Progress Notes * Francisco RAGLANDnDOB:[birth year] (50 yo F)Acc No.[id number]:11/08/2024 Progress Note Patient: Martha YADAV Provider: Fabrice Mendoza DPM :1975 A ge:49 Y S ex:Female Date:11/08/2024 Address:[address] [place], [place] [id number] Pcp:Francoise Solares MD Subjective: * Chief Complaints: [...] Pending * Provider: Fabrice Mendoza DPM Date: 11/08/2024 Generated for Gabe chaudhari/Karina/Cynthia on: 0 05/31/2025 09:39 AM EDT
--- OUTSIDE RECORDS SUMMARY | 2024-11-22 08:15 | XMS_ITS ---
Author Organization [facility] Address [address] [place] [address] Care Team Providers Care Platform Power Technician Name Role Phone Francoise Solares MD Primary Care Provider Ny Brown [phone] Encounters Encounter Location Date Provider Diagnosis [address] [address] 11/22/2024 Ny Mendoza Plan Of Treatment No Information Progress Notes * Maris RAGLANDonealnDOB:[birth year] (50 yo F)Acc No.[id number]:11/22/2024 Progress Notes Patient: Martha YADAV Provider: Fabrice Mendoza DPM :1975 A ge:49 Y S ex:Female Date:11/22/2024 Address:[address] [place], [place] [id number] Pcp:Francoise Solares MD Subjective: * Chief Complaints: [...] 11/22/2024 Generated for Printi ng/Faxing/eTransmitting on: 0 05/31/2025 09:39 AM EDT
--- OUTSIDE RECORDS SUMMARY | 2025-05-31 09:40 | XMS_ITS | Clinical Summary ---
Author Organization [facility] Address [address] [place], [place] [address] Phone Care Team Providers Care Court Clerk Name Role Phone Pcp, Unknown Primary Care Provider Unavailabl e Allergies Active Allergy Reactions Criticality Noted Date Comments Cephalexin Rash Low 11/08/2022 Penicillins Rash Low 11/08/2022 Sulfa (Sulfonamide Antibiotics) Rash Low 10/20 Medications bisoprolol (ZEBETA) 5 MG tablet Take 5 mg by mouth daily. 08/18/2022 Active doxycycline hyclate (VIBRAMYCIN) 100 MG capsule Take 100 mg by mouth 2 (two) times a day. 11/04/2022 Active cyclobenzaprine (FLEXERIL) 5 MG tablet Take 1 tablet (5 mg total) by mouth 3 (three) times a day as needed. 30 tablet 11/08/2022 Active Social History Tobacco Use Types Packs/Day Years Used Date Smoking Tobacco: Never Passive Smoke Exposure: Past Smokeless Tobacco: Never Tobacco Cessation:Counseling Given: Not Answered Education Answer Date Recorded Are you interested in more education? Not on mable e 01/14/2023 Are you concerned about learning? Not on file 01/14/2023 No 01/14/2023 No 01/14/2023 Digital Access Answer Date Recorded No 02/12/2023 No 02/12/2023 No 02/12/2023 Reliable internet access at home? Not on file 02/12/2023 Device with a working camera? Not on file Comments Unknown Sex and Gender Information Value Date Recorded Sex Assigned at Not on file Legal Sex Female 2:29 PM EST Gender Identity Not on file Sexual Orientation Not on file Last Filed Vital Signs Vital Sign Reading Time Taken Comments Blood Pressure 153/95 11/08/2022 2:41 PM EST Pulse 76 11/08/2022 2:41 PM EST Temperature 36.8 C (98.3 F) 11/08/2022 2:41 PM EST Respiratory Rate 20 11/08/2022 2:41 PM EST Oxygen Saturation 99% 11/08/2022 2:41 PM EST Inhaled Oxygen Concentration - - Weight 111.1 kg (245 lb) 11/08/2022 2:41 PM EST per pt Height - - Body Mass Index - - Plan of Treatment Health Maintenance Due Date Last Done Comments Adult Td,Tdap Booster 1977 LIPID PANEL 1977 DEPRESSION SCREENING 1989 HEPATITIS C SCREENING 1995 HIV ONE-TIME SCREENING (18-6 5 YEARS) 1995 PAP SMEAR 1998 MAMMOGRAM 2017 COLOGUARD 2022 COLONOSCOPY 2022 COLORECTAL CANCER SCREENING 2022 FIT TEST 2022 FOBT 2022 SIGMOIDOSCOPY 2022 VIRTUAL COLONOSCOPY 2022 INFLUENZA VACCINE (#1) 2025 COVID-19 VACCINE (1 - 2023-2 5 season) 2025 SMOKING STATUS SCREENING (On ce After 26 Yrs) Completed 11/08/2022 HEPATITIS A VACCINES Aged Out No long er eligible based on patient's age to complete this topic HIB VACCINES Aged Out No longer eligi ble based on patient's age to complete this topic MENINGOCOCCAL VACCINES (ACWY) Aged Out No longer eligible based on patient's age to complete this topic MENINGOCOCCAL VACCINES (B) Aged Out N o longer eligible based on patient's age to complete this topic PNEUMOCOCCAL VACCINES (0-49 years) Aged Out No longer eligible based on patient's age to complete this topic Medical Devices Not on file Insurance HMO O O O O Care Teams Court Clerk Relationship Specialty Start Date End Date Pcp, Unknown PCP - General 11/08/22 Additional Source Comments The information contained in this document represents components of the legal health record. It is not the complete legal health record.[facility]
--- OUTSIDE RECORDS SUMMARY | 2025-05-31 09:40 | XMS_ITS | Patient Health Record ---
Author Organization [facility] Address [address] [place] [address] Care Team Providers Care Furniture Mover Name Role Phone Francoise Solares MD Primary Care Provider Unavailaugustine MendozaStepheniee Unavailable [phone] Allergies Allergen (clinical drug ingredient) Drug/Non Drug [...] End Date Status Nightsplint AFO Wear As directed; Duration: as needed 08/25/2023 Not-Taking Custom Orthotics as directed 08/25/2023 Not-Taking Ciclopirox 8 % 1 application Externally Once a day; Duration: 30 08/23/2024 Active Bisoprolol Fumarate 5 MG 1 tablet Orally Once a day; Duration: 30 day(s) Active Feldene 20 MG 1 capsule with food Orally Once a day; Duration: 30 days 08/01/2023 Not-Taking Piroxicam 20 MG 1 capsule with food Orally Once a day; Duration: 30 days 08/23/2024 Not-Taking Terbinafine HCl 250 MG 1 tablet Orally O nce a day for 7 days days then stop for 3 weeks repeat cycle; Duration: 90 days 09/06/2023 Not-Taking Ciprofloxacin HCl 500 MG 1 tablet Orally every 12 hrs; Duration: 3 day(s) 01/10/2025 Active Zepbound 2.5 MG/0.5ML 0.5 mL Subcutaneous Active Immunizations Vaccine Route Administration Date Status Comme nts Influenza Unknown 03/07/2025 Refused Social History Tobacco Use: Social History Observation [...] Ulcer of toe of right foot (disorder) ([id number] 515742) Skin ulcer of toe of right foot, limited to breakdown of skin (L97.511) Active confirmed Problem Skin ulcer of toe of right foot with fat layer exposed (L97.512) Active confirmed Vital Signs Blood pressure diastolic 45 mm Hg 03/07/2025 Height 5ft1in in 03/07/2025 Blood pressure systolic 130 mm Hg 03/07/2025 Weight 250 lbs 03/07/2025 BMI 47.23 kg/m2 03/07/2025 Procedures Procedure Date Ordered Date Performed Result Body Sit e 45572-TVV 01/10/2025 N/A 34935-[id number] SKIN/TISSUE 01/24/2025 N/A 64546- Debride <25 sq cm 03/07/2025 N/A Encounters Encounter Location Date Provider Diagnosis [facility] [address] [address] 06/07/2024 Ny Black Plantar fasciitis, bilateral M72.2 ; Tinea unguium B35.1 ; Pain in right foot M79.671 ; Other myositis of right foot M60.871 ; Bursitis of right foot M77.51 ; Pain in left foot M79.672 ; Other myositis of left foot M60.872 ; Bursitis of left foot M77.52 ; Pain in right toe(s) M79.674 and Pain in left toe(s) M79.675 [facility] [address] [facility] [address] 08/23/2024 Ny Black Tinea unguium B35.1 ; Plantar fasciitis, right M72.2 ; Pain in right foot M79.671 ; Other myositis of right foot M60.871 ; Bursitis of right foot M77.51 ; Pain in right toe(s) M79.674 and Pain in left toe(s) M79.675 [facility] [address] [facility] [place] [address] 11/01/2024 Ny Black Plantar fasciitis, right M72.2 ; Ingrown nail L60.0 ; Tinea unguium B35.1 ; Pain in right foot M79.671 ; Other myositis of right foot M60.871 ; Bursitis of right foot M77.51 ; Pain in right toe(s) M79.674 and Pain in left toe(s) M79.[address] [address] 01/10/2025 Ny Black Ingrown nail L60.0 [facility] [address] [place] [address] 01/24/2025 Ny Black Skin ulcer of toe of right foot with fat layer exposed L97.512 [facility] [address] [place] [address] 03/07/2025 Ny Black Tinea unguium B35.1 ; Pain in right toe(s) M79.674 ; Pain in left toe(s) M79.675 and Skin ulcer of toe of right foot, limited to breakdown of skin L97.511 [facility] [address] [place] [address] 08/06/2024 Ny Black [address] [address] 08/27/2024 Ny Black [facility] [address] [place] [address] 05/14/2025 Ny Reji Assessments Encounter Date Diagnosis (ICD Code) Assessment Notes Treatment Notes Treatment Clinical Notes Section Notes 01/10/2025 Ingrown nail (ICD-10 - L60.0) 03/07/2025 Tinea unguium (ICD-10 - B35.1) 03/07/2025 Pain in right toe(s) (ICD-10 - M79.674) 11/01/2024 Ingrown nail (ICD-10 - L60.0) 11/01/2024 Plantar fasciitis, right (ICD-10 - M72.2) 08/23/2024 Tinea unguium (ICD-10 - B35.1) 08/23/2024 Plantar fasciitis, right (ICD-10 - M72.2) 06/07/2024 Plantar fasciitis, bilateral (ICD-10 - M72.2) 06/07/2024 Pain in right foot (ICD-10 - M79.671) 06/07/2024 Tinea unguium (ICD-10 - B35.1) 08/23/2024 Pain in right foot (ICD-10 - M79.671) 11/01/2024 Tinea unguium (ICD-10 - B35.1) 03/07/2025 Pain in left toe(s) (ICD-10 - M79.675) 01/24/2025 Skin ulcer of toe of right foot with fat layer exposed (ICD-10 - L97.512) Patient Educated with: WOUND CARE INSTRUCTIONS.p df (WOUND CARE INSTRUCTIONS.p df) 03/07/2025 Skin ulcer of toe of right foot, limited to breakdown of skin (ICD-10 - L97.511) 11/01/2024 Pain in right foot (ICD-10 - M79.671) 06/07/2024 Other myositis of right foot (ICD-10 - M60.871) 08/23/2024 Other myositis of right foot (ICD-10 - M60.871) 08/23/2024 Bursitis of right foot (ICD-10 - M77.51) 06/07/2024 Bursitis of right foot (ICD-10 - M77.51) 11/01/2024 Other myositis of right foot (ICD-10 - M60.871) 11/01/2024 Bursitis of right foot (ICD-10 - M77.51) 08/23/2024 Pain in right toe(s) (ICD-10 - M79.674) 06/07/2024 Pain in left foot (ICD-10 - M79.672) 06/07/2024 Other myositis of left foot (ICD-10 - M60.872) 11/01/2024 Pain in right toe(s) (ICD-10 - M79.674) 08/23/2024 Pain in left toe(s) (ICD-10 - M79.675) 11/01/2024 Pain in left toe(s) (ICD-10 - M79.675) 06/07/2024 Bursitis of left foot (ICD-10 - M77.52) 06/07/2024 Pain in right toe(s) (ICD-10 - M79.674) 06/07/2024 Pain in left toe(s) (ICD-10 - M79.675) 01/24/2025 Other Plan Of Treatment Pending Test Test Name Order Date *Liver Function Test (LFT) 03/06/2024 *Liver Function Test (LFT) 08/25/2023 [id number] 01/10/2025 65841- Debride <25 sq cm 08/25/2023 47991- Debride <25 sq cm 03/07/2025 86017-[id number] SKIN/TISSUE 01/24/2025 Insurance Providers Payer Name Payer Address Payer Phone Subscriber Number Group Number Insured Name Patient Relationship to Insured Coverage Start Date Coverage End Date [facility] [address] [facility] [address] [phone] [id number] Martha Nelson Self - patient is the insured Medical (General) History Medical History History ICD Code Back,Hip,and Knee pain Broken bones covid-19 Gall bladder problems High blood pressure Chicken pox Surgical History Surgery Date(Month/Year) knee surgery, left knee surgery, right 2009 cyst removal 2003 Gall bladder removal 2015
== END 2025-05-31 09:38 | disposition home or self-care (01) ==
LOC: HO.HMGCLDS 09:37
PROVIDERS: PCP Internal Medicine; Visit Provider Internal Medicine
DX: E55.9 Vitamin D deficiency, unspecified (principal)
CPT/HCPCS: 36415; 82306

== ENCOUNTER 2025-06-04 12:17 | Outpatient (AMB) | payer OTHER, SELFPAY ==
--- OUTSIDE RECORDS SUMMARY | 2024-11-08 04:45 | XMS_ITS ---
Author Organization [facility] Address [address] [place] [address] Care Team Providers Care Locomotive Engineer Name Role Phone Francoise Solares MD Primary Care Provider Ny Brown [phone] Allergies Allergen (clinical drug ingredient) Drug/Non Drug [...] 08/01/2023 Not-Taking Ciclopirox 8 % 1 application Plant Associate ally Once a day; Duration: 30 08/23/2024 Active Bisoprolol Fumarate 5 MG 1 tablet Orally Once a day; Duration: 30 day(s) Active Encounters Encounter [facility] [address] 11/08/20[facility] Ny Mendoza Plan Of Treatment No Information Progress Notes * Francisco RAGLANDnDOB:[birth year] (50 yo F)Acc No.[id number]:11/08/2024 Progress Note Patient: Martha YADAV Provider: Fabrice Mendoza DPM :1975 A ge:49 Y S ex:Female Date:11/08/2024 Address:[address] [place], [place] [phone] Pcp:Francoise Solares MD Subjective: * Chief Complaints: [...] 11/08/2024 Generated for Gabe chaudhari/Karina/Cynthia on: 0 06/04/2025 03:46 PM EDT
--- OUTSIDE RECORDS SUMMARY | 2024-11-22 08:15 | XMS_ITS ---
Author Organization [facility] Address [address] [place] [address] Care Team Providers Care Irrigation District Manager Name Role Phone Francoise Solares MD Primary Care Provider Ny Brown [phone] Encounters Encounter Location Date Provider Diagnosis [address] [address] 11/22/2024 Ny Mendoza Plan Of Treatment No Information Progress Notes * Maris RAGLANDonealnDOB:[birth year] (50 yo F)Acc No.[id number]:11/22/2024 Progress Notes Patient: Martha YADAV Provider: Fabrice Mendoza DPM :1975 A ge:49 Y S ex:Female Date:11/22/2024 Address:[address] [place], [place] [id number] Pcp:Francoise Solares MD Subjective: * Chief Complaints: [...] 11/22/2024 Generated for Printi ng/Faxing/eTransmitting on: 0 06/04/2025 03:46 PM EDT
--- NOTE | 2025-06-04 12:20 | A.OFFPC_ITS ---
Vital Signs 06/04/25 12:25 Height 5 ft 1 in Weight 248 lb BMI 46.9 BP 122/80 Blood Pressure Location Lt brachial Position Sitting Pulse 62 Pulse Source Pulse Oximeter Pulse Oximetry (%) 97 Intake Visit Reasons: Follow up on weight med Radiologic Electronic Specialist Required: No Accompanied by: Spouse Allergies amlodipine Adverse Reaction (Intermediate, Verified 06/04/25 12:27) cough semaglutide (From Wegovy) Adverse Reaction (Intermediate, Verified 06/04/25 12:27) Blurry Vision cephalexin (From Keflex) Adverse Reaction (Verified 06/04/25 12:27) Rash Penicillins Adverse Reaction (Verified 06/04/25 12:27) Rash Sulfa (Sulfonamide Antibiotics) Adverse Reaction (Verified 06/04/25 12:27) Rash Medication List - Last Reconciled 06/04/25 by Francoise Solares MD bisoprolol fumarate 5 mg PO DAILY Tobacco use date assessed: 01/20/25 Dental Screening Dental Screen Date: 01/20/25 HPI Follow up on weight med HPI Details Pt presents for HTN, stable on Bisoprolol. Pt developed blurred vision in both eyes while on Wegovy for 2 months. Patient has stopped medication last week and blurred vision has improved. Patient lost 30 lb on Zepbound and tolerated medication well without side effects in the past but her insurance changed formulary in March and Zepbound is covered. Patient has been decreasing caloric intake, increasing physical activity for over a year and has been frustrated not being able to lose significant amount of weight without medication. She is planning to rejoin weight watchers program which was helpful in the past. [facility] Medical History HTN (hypertension) Irregular menses Anxiety Enlarged thyroid Grieving Overweight Normal pelvic exam Annual physical exam Surgical History Hx of colonoscopy Hx of cholecystectomy S/P knee surgery Family History Father HTN (hypertension) DM (diabetes mellitus) Mother HTN (hypertension) Stroke Social History Household Members Other:: , no children, work at [employer], Housing: House Patient Tobacco Use Status: Never used Tobacco e-Cigarette/Vaping Use: Never Used Second Hand Smoke Exposure: Yes service: No Current occupational status: employed Current occupation: [employer] Cognitive needs: No Hearing needs: No Vision needs: No Questionnaire Thrive Questionnaire Date Thrive assessed: 01/14/25 I am a: Patient What is your living situation today?: I have a steady place to live Within the past 12 months, did the food you bought not last and you didn't have the money to get more?: Never true Within the past 12 months, did you worry whether your food would run out before you got money to buy more?: Never true Do you have trouble paying for medicines?: No Do you have trouble getting transportation to medical appointments?: No Do you have trouble paying your heating and electricity bill?: No Do you have trouble taking care of your child, family member or friend?: No Do you have trouble with day-to-day activities such as bathing, preparing meals, shopping, managing finances, etc.?: No Are you currently unemployed and looking for a job?: No Are you interested in more education?: No Please select the resources that you would like help with: None Currently or been in a relationship where the following occur: No concerns reported THRIVE Score: 0 AUDIT C Alcohol Use Questionnaire (AUDIT-C) 1. How often do you have a drink containing alcohol?: Monthly or less 2. How many drinks containing alcohol do you have on a typical day when you are drinking?: 1 or 2 3. How often do you have six or more drinks on one occasion?: Never Total Score: 1 CARLOS-7 AMB Questionnaire CARLOS-7 Date CARLOS - 7 assessed: 01/20/25 Feeling nervous, anxious, or on edge: 0 = Not at all Not being able to stop or control worryin = Not at all Worrying too much about different things: 0 = Not at all Trouble relaxin = Not at all Being so restless that it is hard to sit still: 0 = Not at all Becoming easily annoyed or irritable: 0 = Not at all Feeling afraid as if something awful might happen: 0 = Not at all Total CARLOS-7 score (0-4 normal; 5-9 mild; 10-14 moderate; 15-21 severe): 0 Source: Developed by Drs. Sridhar Gill, Mercedez Devine, Raheem Horner and colleagues, with an educational brittanie from [employer]. Review of Systems Const All systems reviewed & are unremarkable except as noted in HPI and below Eyes Reports no additional complaints ENT Reports no additional complaints Card Reports no additional complaints Resp Reports no additional complaints GI Reports no additional complaints Reports no additional complaints Physical exam (Primary Care) Vital Signs: Last Vital Signs Pulse 62 06/04/25 12:25 BP 122/80 06/04/25 12:25 Pulse Ox 97 06/04/25 12:25 BMI result Body Mass Index 46.9 Tobacco/Smoking Status: Tobacco use Status Tobacco use date assessed 01/20/25 06/04/25 12:20 Patient Tobacco Use Status Never used Tobacco 06/04/25 12:20 e-Cigarette/Vaping Use Never Used 06/04/25 12:20 Thrive Assessment: Date of Thrive Assessment Date Thrive assessed 01/14/25 06/04/25 12:20 Currently or been in a relationship where the following occur: No concerns reported Const General: no acute distress HENMT Head: Yes normal to inspection Throat: Yes posterior oropharynx normal Eyes General: appearance normal, both eyes and all related structures Pupils: Equal, round and reactive pupils present EOM: EOMs intact bilaterally Direct Ophthalmoscopy: normal light reflex Neck Neck: Yes no lymphadenopathy and Yes supple Resp Effort & Inspection: normal respiratory effort Auscultation: clear to auscultation bilaterally Cardio Rhythm: regular rhythm Heart sounds: S1 normal heart sound present and S2 normal heart sound present GI Inspection: Yes normal to inspection Palpation (GI): Soft to palpation Percussion: Yes normal to percussion Auscultation: normal bowel sounds Neuro Cranial nerves: Yes Equal, round and reactive pupils present Coding Level of Care Code Est Pt Level 4 (28522) Diagnoses Obesity, morbid, BMI 40.0-49.9 E66.01 HTN (hypertension) I10 Blurred vision, bilateral H53.8 Assessment & Plan Assessment & Plan (1) Obesity, morbid, BMI 40.0-49.9: Code(s): E66.01 - Morbid (severe) obesity due to excess calories Category: Medical Plan: Patient will try to appeal the decision to not cover Zepbound with her insurance. She will be referred to weight management program Dr. Ramos in [place]. (2) HTN (hypertension): Code(s): I10 - Essential (primary) hypertension Category: Medical Plan: Continue bisoprolol (3) Blurred vision, bilateral: Code(s): H53.8 - Other visual disturbances Category: Medical Plan: Patient was advised to schedule an partnership development manager appointment Orders: Orders Vitamin D 25-OH Total 4 Months E55.9 - Vitamin D deficiency, unspecified Complete Blood Count Auto Diff 8 Months E55.9 - Vitamin D deficiency, u nspecified, E66.01 - Morbid (severe) obesity due to excess calories, I10 - Essential (primary) hypertension Lipid Panel 8 Months E55.9 - Vitamin D deficiency, unspecified, E66.01 - Morbid (severe) obesity due to excess calories, I10 - Essential (primary) hypertension TSH reflex Free T4 8 Months E55.9 - Vitamin D deficiency, unspecified, E66.01 - Morbid (severe) obesity due to excess calories, I10 - Essential (primary) hypertension Vitamin D 25-OH Total 8 Months E55.9 - Vitamin D deficiency, unspecified, E66.01 - Morbid (severe) obesity due to excess calories, I10 - Essential (primary) hypertension Comprehensive Rush. Panel Fast 8 Months E55.9 - Vitamin D deficiency, unspecified, E66.01 - Morbid (severe) obesity due to excess calories, I10 - Essential (primary) hypertension Referrals Medical Weight Management Referral E66.01 - Morbid (severe) obesity due to excess calories
[2025-06-04 12:25] VITALS: BP 122/80; PULSE 62; O2SAT 97; BMI 46.9
--- OUTSIDE RECORDS SUMMARY | 2025-06-04 15:46 | XMS_ITS | Patient Health Record ---
Author Organization [facility] Address [address] [place] [address] Care Team Providers Care Overedge Sewer Name Role Phone Francoise Solares MD Primary Care Provider Unavailaugustine MendozaStepheniee Unavailable [phone] Allergies Allergen (clinical drug ingredient) Drug/Non Drug [...] Ulcer of toe of right foot (disorder) ([id number] 203548) Skin ulcer of toe of right foot, [...] Ordered Date Performed Result Body Sit e [id number] 01/10/2025 N/A 62070-LFREAUJ SKIN/TISSUE 01/24/2025 N/A 23874- Debride <25 sq cm 03/07/2025 N/A Encounters Encounter Location Date Provider Diagnosis [facility] [address] [address] 06/07/2024 Ny Black Plantar fasciitis, bilateral M72.2 ; Tinea unguium B35.1 ; Pain in right foot M79.671 ; Other myositis of right foot M60.871 ; Bursitis of right foot M77.51 ; Pain in left foot M79.672 ; Other myositis of left foot M60.872 ; Bursitis of left foot M77.52 ; Pain in right toe(s) M79.674 and Pain in left toe(s) M79.675 [facility] [address] [place] [address] 08/23/2024 Ny Black Tinea unguium B35.1 ; Plantar fasciitis, right M72.2 ; Pain in right foot M79.671 ; Other myositis of right foot M60.871 ; Bursitis of right foot M77.51 ; Pain in right toe(s) M79.674 and Pain in left toe(s) M79.675 [facility] [address] [place] [address] 11/01/2024 Ny Black Plantar fasciitis, right M72.2 ; Ingrown nail L60.0 ; Tinea unguium B35.1 ; Pain in right foot M79.671 ; Other myositis of right foot M60.871 ; Bursitis of right foot M77.51 ; Pain in right toe(s) M79.674 and Pain in left toe(s) M79.[address] [address] 01/10/2025 Ny Black Ingrown nail L60.0 [facility] [address] [place] [address] 01/24/2025 Ny Black Skin ulcer of toe of right foot with fat layer exposed L97.512 [facility] [address] [place] [address] 03/07/2025 Ny Black Tinea unguium B35.1 ; Pain in right toe(s) M79.674 ; Pain in left toe(s) M79.675 and Skin ulcer of toe of right foot, limited to breakdown of skin L97.511 [facility] [address] [place] [address] 08/06/2024 Ny Black [address] [address] 08/27/2024 Ny Black [facility] [address] [place] [address] 05/14/2025 Ny Mendoza Assessments Encounter Date Diagnosis (ICD Code) Assessment Notes Treatment Notes Treatment Clinical Notes Section Notes 06/07/2024 Plantar fasciitis, bilateral (ICD-10 - M72.2) 08/23/2024 Tinea unguium (ICD-10 - B35.1) 08/23/2024 Plantar fasciitis, right (ICD-10 - M72.2) 11/01/2024 Ingrown nail (ICD-10 - L60.0) 11/01/2024 Plantar fasciitis, right (ICD-10 - M72.2) 03/07/2025 Tinea unguium (ICD-10 - B35.1) 03/07/2025 Pain in right toe(s) (ICD-10 - M79.674) 01/10/2025 Ingrown nail (ICD-10 - L60.0) 01/24/2025 Skin ulcer of toe of right foot with fat layer exposed (ICD-10 - L97.512) Patient Educated with: WOUND CARE INSTRUCTIONS.p df (WOUND CARE INSTRUCTIONS.p df) 03/07/2025 Pain in left toe(s) (ICD-10 - M79.675) 11/01/2024 Tinea unguium (ICD-10 - B35.1) 08/23/2024 Pain in right foot (ICD-10 - M79.671) 06/07/2024 Pain in right foot (ICD-10 - M79.671) 06/07/2024 Tinea unguium (ICD-10 - B35.1) 06/07/2024 Other myositis of right foot (ICD-10 - M60.871) 08/23/2024 Other myositis of right foot (ICD-10 - M60.871) 11/01/2024 Pain in right foot (ICD-10 - M79.671) 03/07/2025 Skin ulcer of toe of right foot, limited to breakdown of skin (ICD-10 - L97.511) 11/01/2024 Other myositis of right foot (ICD-10 - M60.871) 08/23/2024 Bursitis of right foot (ICD-10 - M77.51) 06/07/2024 Bursitis of right foot (ICD-10 - M77.51) 06/07/2024 Pain in left foot (ICD-10 - M79.672) 11/01/2024 Bursitis of right foot (ICD-10 - M77.51) 08/23/2024 Pain in right toe(s) (ICD-10 - M79.674) 11/01/2024 Pain in right toe(s) (ICD-10 - M79.674) 08/23/2024 Pain in left toe(s) (ICD-10 - M79.675) 06/07/2024 Other myositis of left foot (ICD-10 - M60.872) 06/07/2024 Bursitis of left foot (ICD-10 - M77.52) 11/01/2024 Pain in left toe(s) (ICD-10 - M79.675) 06/07/2024 Pain in right toe(s) (ICD-10 - M79.674) 06/07/2024 Pain in left toe(s) (ICD-10 - M79.675) 01/24/2025 Other Plan Of Treatment Pending Test Test Name Order Date *Liver Function Test (LFT) 08/25/2023 *Liver Function Test (LFT) 03/06/2024 [id number] 01/10/2025 34794- Debride <25 sq cm 08/25/2023 94908- Debride <25 sq cm 03/07/2025 [id number] SKIN/TISSUE 01/24/2025 Insurance Providers Payer Name Payer Address Payer Phone Subscriber Number Group Number Insured Name Patient Relationship to Insured Coverage Start Date Coverage End Date [facility] [address] [facility] [id number] Martha Nelson Self - patient is the insured Medical (General) History Medical History History ICD Code Back,Hip,and Knee pain Broken bones covid-19 Gall bladder problems High blood pressure Chicken pox Surgical History Surgery Date(Month/Year) knee surgery, left knee surgery, right 2009 cyst removal 2003 Gall bladder removal 2015
--- OUTSIDE RECORDS SUMMARY | 2025-06-04 15:46 | XMS_ITS | Clinical Summary ---
Author Organization [facility] Address [address] [place], [place] [id number] Phone Care Team Providers Care Countersinker Balance Screw Hole Name Role Phone Pcp, Unknown Primary Care [...] HMO O O O O Care Teams Countersinker Balance Screw Hole Relationship Specialty Start Date End Date Pcp, Unknown PCP - General 11/08/22 Additional Source Comments The information contained in this document represents components of the legal health record. It is not the complete legal health record.[facility]
== END 2025-06-04 13:38 | disposition home or self-care (01) ==
LOC: HO.HMCC 12:19
PROVIDERS: PCP Internal Medicine; Visit Provider Internal Medicine
DX: I10 Essential (primary) hypertension (principal); E66.01 Morbid (severe) obesity due to excess calories; H53.8 Other visual disturbances; Z68.42 Body mass index [BMI] 45.0-49.9, adult

== ENCOUNTER 2025-06-09 08:26 | Outpatient (AMB) | payer OTHER, SELFPAY ==
--- OUTSIDE RECORDS SUMMARY | 2024-11-22 08:15 | XMS_ITS ---
Author Organization [facility] Address [address] [place] [address] Care Team Providers Care Red Cap Name Role Phone Francoise Solares MD Primary Care Provider Ny Brown [phone] Encounters Encounter Location Date Provider Diagnosis [address] [address] 11/22/2024 Ny Mendoza Plan Of Treatment No Information Progress Notes * Maris RAGLANDonealnDOB:[birth year] (50 yo F)Acc No.[id number]:11/22/2024 Progress Notes Patient: Martha YADAV Provider: Fabrice Mendoza DPM :1975 A ge:49 Y S ex:Female Date:11/22/2024 Address:[address] [place], [place] [phone] Pcp:Francoise Solares MD Subjective: * Chief Complaints: [...] 0 11/22/2024 Generated for Printi ng/Faxing/eTransmitting on: 0 06/09/2025 09:40 AM EDT
--- OUTSIDE RECORDS SUMMARY | 2025-06-06 05:30 | XMS_ITS ---
Author Organization [facility] Address [address] [place] [address] Care Team Providers Care Bandoleer Straightener Stamper Name Role Phone Francoise Solares MD Primary Care Provider Ny Brown [phone] Encounters Encounter Location Date Provider Diagnosis [address] [address] 06/06/2025 Ny Mendoza Plan Of Treatment No Information Progress Notes * Maris RAGLANDonaelnDOB:[birth year] (50 yo F)Acc No.[id number]:06/06/2025 Progress Note Patient: Martha YADAV Provider: Fabrice Mendoza DPM :1975 A ge:50 Y S ex:Female Date:06/06/2025 Address:[address] [place], [place] [id number] Pcp:Francoise Solares MD Subjective: * Chief Complaints: * * Medical History: Objective: * Vitals: Assessment: Plan: * Treatment: * Images: * The named appointment provid er may or may not be the originator of this progress note, and it is not deemed complete until electronically signed by the appointment provider. Sign off status: Pending * Provider: Fabrice Mendoza DPM Date: 06/06/2025 Generated for Printi ng/Faxing/eTransmitting on: 06/09/2025 09:39 AM EDT
--- NOTE | 2025-06-09 08:38 | MHC.OFFVIS ---
Vital Signs 06/09/25 08:39 Height 5 ft 1 in Weight 248 lb BMI 46.9 Intake Visit Reasons: ov- LT knee OA Intake Note: Martha is a 50 year old female who presents today for a follow up of her right knee OA. At her last visit patient was given an injection on 12/13/24. Today patient presents today discuss surgical intervention. States injection provided her relief until the end of January. She says she is trying to work on losing weight and is having a very hard time not being able to go out, walk and stay active to due so. She expresses starting turmeric root extract 538 mg OTC supplement capsules roughly a week ago for inflammation and would like to confirm if this is okay. Allergies amlodipine Adverse Reaction (Intermediate, Verified 06/09/25 08:40) cough semaglutide (From Wegovy) Adverse Reaction (Intermediate, Verified 06/09/25 08:40) Blurry Vision cephalexin (From Keflex) Adverse Reaction (Verified 06/09/25 08:40) Rash Penicillins Adverse Reaction (Verified 06/09/25 08:40) Rash Sulfa (Sulfonamide Antibiotics) Adverse Reaction (Verified 06/09/25 08:40) Rash Medication List - Last Reconciled 06/09/25 by Tanisha Frazier PA-C bisoprolol fumarate 5 mg PO DAILY cholecalciferol (vitamin D3) 50 mcg PO DAILY turmeric root extract 538 mg PO DAILY HPI HPI ov- LT knee OA: Details: 50 yo female returns to the office today f/u left knee s/p injection. She had an injection in November and she felt it helped up until end of january , early february. She states with the injection she was able to perform normal activities. Since it wore off her ability to perform daily activities are difficult . She limps, has clicking and popping. She has had a total of 3 steroid injections to date. 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 Cognitive needs: No Hearing needs: No Vision needs: No Review of Systems Const All systems reviewed & are unremarkable except as noted in HPI and below Physical Exam Vital Signs: BMI result Body Mass Index 46.9 Const General: cooperative, healthy appearing, comfortable, no acute distress, well developed and alert Orientation/consciousness: patient oriented x3 HEENT Head: Yes normal to inspection, Yes normocephalic and Yes atraumatic Eyes General: appearance normal, both eyes and all related structures Resp Effort & Inspection: normal respiratory effort and able to speak in complete sentences Cardio Rate: regular rate Peripheral pulses: Peripheral pulses 2+ throughout GI Palpation (GI): Soft to palpation Skin Lesions: no lesions Rashes: no rashes Neuro General: patient oriented x3 Extrem Other: Left knee: Skin intact, no erythema or joint effusion. Tenderness along the medial joint line. Full ROM with crepitus. Negative Trip?s. No ligamentous laxity. NVI. ? Assessment & Plan Assessment & Plan (1) Osteoarthritis of left knee: Code(s): M17.12 - Unilateral primary osteoarthritis, left knee Category: Medical (2) Partial tear of anterior cruciate ligament of knee: Code(s): S83.519A - Sprain of anterior cruciate ligament of unspecified knee, initial encounter Category: Medical (3) Tear of meniscus of left knee: Code(s): S83.207A - Unspecified tear of unspecified meniscus, current injury, left knee, initial encounter Category: Medical Plan We discussed options today which includes repeat steroid injection which she would like to hold off on today. We discussed other options which include gel injections and geniculate injections. She would like to proceed with the gel therefore we will obtain authorization. I also sent a prescription for Celebrex 200 mg 1 tablet twice a day to help with inflammation. She will take this twice a day for 2 weeks. I also stressed the importance of physical therapy exercises to work on strengthening and conditioning. Once the gel injections are approved we will the patient to book. Medications: New celecoxib (Celebrex) 200 mg PO BID 60 caps 3RF 30 days Coding Level of Care Code Est Pt Level 3 (18104) Complex EM visit Add On G2211 Diagnoses Osteoarthritis of left knee M17.12 Partial tear of anterior cruciate ligament of knee S83.519A Tear of meniscus of left knee S83.207A
[2025-06-09 08:39] VITALS: BMI 46.9
--- OUTSIDE RECORDS SUMMARY | 2025-06-09 09:40 | XMS_ITS | Clinical Summary ---
Author Organization [facility] Address [address] [place], [place] [address] Phone Care Team Providers Care Manager People Name Role Phone Pcp, Unknown Primary Care [...] HMO O O O O Care Teams Manager People Relationship Specialty Start Date End Date Pcp, Unknown PCP - General 11/08/22 Additional Source Comments The information contained in this document represents components of the legal health record. It is not the complete legal health record.[facility]
--- OUTSIDE RECORDS SUMMARY | 2025-06-09 09:40 | XMS_ITS | Patient Health Record ---
Author Organization [facility] Address [address] [place] [address] Care Team Providers Care Lease Attendant Name Role Phone Francoise Solares MD Primary Care Provider Unavailaugustine MendozaStepheniee Unavailable [phone] Allergies Allergen (clinical drug ingredient) Drug/Non Drug [...] Ulcer of toe of right foot (disorder) ([id number]) Skin ulcer of toe of right foot, [...] Ordered Date Performed Result Body Sit e 76179-USO 01/10/2025 N/A 85756-ITQTCYM SKIN/TISSUE 01/24/2025 N/A 52994- Debride <25 sq cm 03/07/2025 N/A Encounters Encounter Location Date Provider Diagnosis [facility] [address] 08/23/2024 Ny Black Tinea unguium B35.1 ; Plantar fasciitis, right M72.2 ; Pain in right foot M79.671 ; Other myositis of right foot M60.871 ; Bursitis of right foot M77.51 ; Pain in right toe(s) M79.674 and Pain in left toe(s) M79.[address] [facility] [address] [address] 11/01/2024 Ny Black Plantar fasciitis, right M72.2 ; Ingrown nail L60.0 ; Tinea unguium B35.1 ; Pain in right foot M79.671 ; Other myositis of right foot M60.871 ; Bursitis of right foot M77.51 ; Pain in right toe(s) M79.674 and Pain in left toe(s) M79.[address] [address] 01/10/2025 Ny Black Ingrown nail L60.[address] [address] 01/24/2025 Ny Black Skin ulcer of toe of right foot with fat layer exposed L97.[address] [address] 03/07/2025 Ny Black Tinea unguium B35.1 ; Pain in right toe(s) M79.674 ; Pain in left toe(s) M79.675 and Skin ulcer of toe of right foot, limited to breakdown of skin L97.[address] [address] 08/06/2024 Ny Black [address] [address] 08/27/2024 Ny Black [address] [address] 05/14/2025 Ny Black Assessments Encounter Date Diagnosis (ICD Code) Assessment Notes Treatment Notes Treatment Clinical Notes Section Notes 08/23/2024 Tinea unguium (ICD-10 - B35.1) 08/23/2024 Plantar fasciitis, right (ICD-10 - M72.2) 11/01/2024 Ingrown nail (ICD-10 - L60.0) 11/01/2024 Plantar fasciitis, right (ICD-10 - M72.2) 01/10/2025 Ingrown nail (ICD-10 - L60.0) 03/07/2025 Tinea unguium (ICD-10 - B35.1) 03/07/2025 Pain in right toe(s) (ICD-10 - M79.674) 03/07/2025 Pain in left toe(s) (ICD-10 - M79.675) 01/24/2025 Skin ulcer of toe of right foot with fat layer exposed (ICD-10 - L97.512) Patient Educated with: WOUND CARE INSTRUCTIONS.p df (WOUND CARE INSTRUCTIONS.p df) 11/01/2024 Tinea unguium (ICD-10 - B35.1) 08/23/2024 Pain in right foot (ICD-10 - M79.671) 11/01/2024 Pain in right foot (ICD-10 - M79.671) 08/23/2024 Other myositis of right foot (ICD-10 - M60.871) 03/07/2025 Skin ulcer of toe of right foot, limited to breakdown of skin (ICD-10 - L97.511) 11/01/2024 Other myositis of right foot (ICD-10 - M60.871) 08/23/2024 Bursitis of right foot (ICD-10 - M77.51) 08/23/2024 Pain in right toe(s) (ICD-10 - M79.674) 11/01/2024 Bursitis of right foot (ICD-10 - M77.51) 11/01/2024 Pain in right toe(s) (ICD-10 - M79.674) 08/23/2024 Pain in left toe(s) (ICD-10 - M79.675) 11/01/2024 Pain in left toe(s) (ICD-10 - M79.675) 01/24/2025 Other Plan Of Treatment Pending Test Test Name Order Date *Liver Function Test (LFT) 08/25/2023 *Liver Function Test (LFT) 03/06/2024 58551-YSC 01/10/2025 51403- Debride <25 sq cm 08/25/2023 71898- Debride <25 sq cm 03/07/2025 30506-GDAYGSB SKIN/TISSUE 01/24/2025 Insurance Providers Payer Name Payer Address Payer Phone Subscriber Number Group Number Insured Name Patient Relationship to Insured Coverage Start Date Coverage End Date [facility] [address] [facility], [place] [address] [id number] Martha Nelson Self - patient is the insured Medical (General) History Medical History History ICD Code Back,Hip,and Knee pain Broken bones covid-19 Gall bladder problems High blood pressure Chicken pox Surgical History Surgery Date(Month/Year) knee surgery, left 1993/1994 knee surgery, right 2009 cyst removal 2003 Gall bladder removal 2015
== END 2025-06-09 10:42 | disposition home or self-care (01) ==
LOC: HO.HOS 08:27
PROVIDERS: PCP Internal Medicine; Visit Provider Physician Assistant
DX: M17.12 Unilateral primary osteoarthritis, left knee (principal); S83.519A Sprain of anterior cruciate ligament of unspecified knee, initial encounter; S83.207A Unspecified tear of unspecified meniscus, current injury, left knee, initial encounter
CPT/HCPCS: 99213; G2211

== ENCOUNTER 2025-07-17 14:55 | Outpatient (AMB) | payer OTHER, SELFPAY ==
--- OUTSIDE RECORDS SUMMARY | 2024-09-06 04:30 | XMS_ITS ---
Author Organization [facility] Address [address] [place] [address] Care Team Providers Care Exhibit Designer Name Role Phone Francoise Solares MD Primary Care Provider Ny Brown [phone] Encounters Encounter Location Date Provider Diagnosis [address] [address] 09/06/2024 Ny Mendoza Plan Of Treatment No Information Progress Notes * Francisco RAGLANDnDOB:[birth year] (50 yo F)Acc No.[id number]:09/06/2024 Progress Note Patient: Martha YADAV Provider: Fabrice Mendoza DPM :1975 A ge:49 Y S ex:Female Date:09/06/2024 Address:[address] [place], [place] [id number] Pcp:Francoise Solares MD Subjective: * Chief Complaints: [...] Date: 11/07/2023 Generated for Printi ng/Faxing/eTransmitting on: 05:50 PM EDT
--- OUTSIDE RECORDS SUMMARY | 2024-11-08 04:45 | XMS_ITS ---
Author Organization [facility] Address [address] [place] [address] Care Team Providers Care Pre Certification Specialist Name Role Phone Francoise Solares MD Primary Care Provider Ny Brown [phone] Allergies Allergen (clinical drug ingredient) Drug/Non Drug [...] 08/01/2023 Not-Taking Ciclopirox 8 % 1 application Carpenter Refrigerator ally Once a day; Duration: 30 08/23/2024 Active Bisoprolol Fumarate 5 MG 1 tablet Orally Once a day; Duration: 30 day(s) Active Encounters Encounter [facility] Date [facility] [address] 11/08/2024 Ny Mendoza Plan Of Treatment No Information Progress Notes * Francisco RAGLANDnDOB:[birth year] (50 yo F)Acc No.[id number]:11/08/2024 Progress Note Patient: Martha YADAV Provider: Fabrice Mendoza DPM :1975 A ge:49 Y S ex:Female Date:11/08/2024 Address:[address] [place], [place] [id number] Pcp:Francoise Solares MD Subjective: * Chief Complaints: [...] 0 11/08/2024 Generated for Gabe chaudhari/Karina/Cynthia on: 05:49 PM EDT
--- OUTSIDE RECORDS SUMMARY | 2024-11-22 08:15 | XMS_ITS ---
Author Organization [facility] Address [address] [place] [address] Care Team Providers Care Maintenance Plumber Name Role Phone Francoise Solares MD Primary Care Provider Ny Brown [phone] Encounters Encounter Location Date Provider Diagnosis [address] [address] 11/22/2024 Ny Mendoza Plan Of Treatment No Information Progress Notes * Francisco RAGLANDnDOB:[birth year] (50 yo F)Acc No.[id number]:11/22/2024 Progress Notes Patient: Martha YADAV Provider: Fabrice Mendoza DPM :1975 A ge:49 Y S ex:Female Date:11/22/2024 Address:[address] [place], [place] [id number] Pcp:Francoise Solares MD Subjective: * Chief Complaints: [...] 0 11/22/2024 Generated for Printi ng/Faxing/eTransmitting on: 05:49 PM EDT
--- OUTSIDE RECORDS SUMMARY | 2025-06-06 05:30 | XMS_ITS ---
Author Organization [facility] Address [address] [place] [address] Care Team Providers Care Headwaitress Name Role Phone Francoise Solares MD Primary Care Provider Ny Brown [phone] Encounters Encounter Location Date Provider Diagnosis [address] [address] 06/06/2025 Ny Mendoza Plan Of Treatment No Information Progress Notes * Maris RAGLANDonealnDOB:[birth year] (50 yo F)Acc No.[id number]:06/06/2025 Progress Note Patient: Martha YADAV Provider: Fabrice Mendoza DPM :1975 A ge:50 Y S ex:Female Date:06/06/2025 Address:[address] [place], [place] [id number] Pcp:Francoise Solares MD Subjective: * Chief Complaints: [...] 0 06/06/2025 Generated for Printi ng/Faxing/eTransmitting on: 05:50 PM EDT
--- NOTE | 2025-07-17 15:07 | A.OFFVIS_ITS ---
Vital Signs 07/17/25 15:11 Height 5 ft 1 in Weight 248 lb BMI 46.9 Intake Visit Reasons: OV- LT knee Euflexxa injection #1 Intake Note: Martha is a 50 year old female who presents today for a left knee Euflexxa injection #1. Allergies amlodipine Adverse Reaction (Intermediate, Verified 07/17/25 15:12) cough semaglutide (From Wegovy) Adverse Reaction (Intermediate, Verified 07/17/25 15:12) Blurry Vision cephalexin (From Keflex) Adverse Reaction (Verified 07/17/25 15:12) Rash Penicillins Adverse Reaction (Verified 07/17/25 15:12) Rash Sulfa (Sulfonamide Antibiotics) Adverse Reaction (Verified 07/17/25 15:12) Rash HPI HPI OV- LT knee Euflexxa injection #1: Details: 50-year-old female returns to the office today 1. Euflexxa left knee. [facility] Medical History HTN (hypertension) Irregular menses Anxiety Enlarged thyroid Grieving Overweight Normal pelvic exam Annual physical exam Surgical History Hx of colonoscopy Hx of cholecystectomy S/P knee surgery Family History Father HTN (hypertension) DM (diabetes mellitus) Mother HTN (hypertension) Stroke Social History Household Members Other:: , no children, work at [employer], Housing: House Patient Tobacco Use Status: Never used Tobacco e-Cigarette/Vaping Use: Never Used Second Hand Smoke Exposure: Yes service: No Current occupational status: employed 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 Cognitive needs: No Hearing needs: No Vision needs: No Review of Systems Const All systems reviewed & are unremarkable except as noted in HPI and below Physical Exam Vital Signs: BMI result Body Mass Index 46.9 Const General: cooperative, healthy appearing, comfortable, no acute distress, well developed and alert Orientation/consciousness: patient oriented x3 HEENT Head: Yes normal to inspection, Yes normocephalic and Yes atraumatic Eyes General: appearance normal, both eyes and all related structures Resp Effort & Inspection: normal respiratory effort and able to speak in complete sentences Cardio Rate: regular rate Peripheral pulses: Peripheral pulses 2+ throughout GI Palpation (GI): Soft to palpation Skin Lesions: no lesions Rashes: no rashes Neuro General: patient oriented x3 Extrem Other: Left knee: Skin intact, no erythema or joint effusion. Tenderness along the medial joint line. Full ROM with crepitus. Negative Trip?s. No ligamentous laxity. NVI. ? Office Procedures AMB Joint Injection/Aspiration Joint Injection/Aspiration Details: #1 euflexxa left knee Primary Site: left knee Prep: site was prepped using aseptic technique, ethochloride spray was applied and injection warnings given Injected: in the joint Approach Used: anterolateral Procedure: The patient tolerated the procedure well Coding 07431 - Glenohumeral/Tronchanteric Bursa/Intraarticular Procedure code (CPT) selection complete Assessment & Plan Assessment & Plan (1) Osteoarthritis of left knee: Code(s): M17.12 - Unilateral primary osteoarthritis, left knee Category: Medical Plan: Plan was to proceed with gel injection today. #1 euflexxa Injection performed today which the patient tolerated well. She will rest ice and use anti-in flammatories as needed for the next several days. I will see her back in 1 week for injection number 2 Coding Level of Care Code Procedure Only Diagnoses Osteoarthritis of left knee M17.12 CPT Codes Coding - Joint 7: 30530 - Glenohumeral/Tronchanteric Bursa/Intraarticular ([id number])
[2025-07-17 15:11] VITALS: BMI 46.9
--- OUTSIDE RECORDS SUMMARY | 2025-07-17 17:50 | XMS_ITS | Patient Health Record ---
Author [facility] Address [address] [place] [address] Care Team Providers Care Child Development Assistant Name Role Phone Francoise Solares MD Primary Care Provider Unavailaugustine MendozaStepheniee Unavailable [phone] Allergies Allergen (clinical drug ingredient) Drug/Non Drug [...] Ulcer of toe of right foot (disorder) ([id number] 846043) Skin ulcer of toe of right foot, [...] Ordered Date Performed Result Body Sit e 74046-ESH 01/10/2025 N/A 36005-VOAULQK SKIN/TISSUE 01/24/2025 N/A 96530- Debride <25 sq cm 03/07/2025 N/A Encounters Encounter Location Date Provider Diagnosis [facility] [address] 08/23/2024 Ny Black Tinea unguium B35.1 ; Plantar fasciitis, right M72.2 ; Pain in right foot M79.671 ; Other myositis of right foot M60.871 ; Bursitis of right foot M77.51 ; Pain in right toe(s) M79.674 and Pain in left toe(s) M79.[address] [facility] [address] [address] 11/01/2024 Ny Black Plantar fasciitis, right M72.2 ; Ingrown nail L60.0 ; Tinea unguium B35.1 ; Pain in right foot M79.671 ; Other myositis of right foot M60.871 ; Bursitis of right foot M77.51 ; Pain in right toe(s) M79.674 and Pain in left toe(s) M79.[address] [address] 01/10/2025 Ny Black Ingrown nail L60.[address] [address] 01/24/2025 Ny Black Skin ulcer of toe of right foot with fat layer exposed L97.[address] [address] 03/07/2025 Ny Black Tinea unguium B35.1 ; Pain in right toe(s) M79.674 ; Pain in left toe(s) M79.675 and Skin ulcer of toe of right foot, limited to breakdown of skin L97.[address] [address] 08/06/2024 Ny Black [address] [address] 08/27/2024 Ny Black [address] [address] 05/14/2025 Ny Black Assessments Encounter Date Diagnosis [...] (LFT) 08/25/2023 *Liver Function Test (LFT) 03/06/2024 02428-XLY 01/10/2025 29761- Debride <25 sq cm 08/25/2023 30043- Debride <25 sq cm 03/07/2025 09634-IIXOYYB SKIN/TISSUE 01/24/2025 Insurance Providers Payer Name Payer Address Payer Phone Subscriber Number Group Number Insured Name Patient Relationship to Insured Coverage Start Date Coverage End Date [facility] [address] [facility], [place] [address] [id number] Martha Nelson Self - patient is the insured Medical (General) History Medical History History ICD Code Back,Hip,and Knee pain Broken bones covid-19 Gall bladder problems High blood pressure Chicken pox Surgical History Surgery Date(Month/Year) knee surgery, left 1993/1994 knee surgery, right 2009 cyst removal 2003 Gall bladder removal 2015
--- OUTSIDE RECORDS SUMMARY | 2025-07-17 17:50 | XMS_ITS | Data Portability ---
Author Organization [place] - [facility] [address] Address [address] [place] [address] Care Team Providers Care Tapper Hand Name Role Phone [facility] Primary Care Provider Assessment No assessment recorded. Plan of Treatment Reminders Order Date Submit Date Provider Last Modified By Organization Details Last Modified Time Details Appointments None recorded. Lab None recorded. Referral None recorded. Procedures None recorded. Surgeries None recorded. Imaging None recorded. Medication Orders doxycycline hyclate 100 mg capsule 2022 023 [email or web address] [id number] [facility][id number], [address] [facility] [place], [address], 15:52:15 Patient TargetsNo targets recorded. Patient Instructions Encounter Date Encounter Id Patient Instructions Last Modified By Organization Details Last Modified Time 11/04/2022 [id number] ingrown toenail: care instructions [email or web address] Not available 11/19/2022 15:54:20 Reason for Referral None Reported. Problems Name Problem SNOMED Code Status Onset Date Resolution Date Notes Provider Name and Address Organization Details Recorded Time Hypertensive disorder 18025254 Active JALEN bass [place] - [facility] 12:27:29 Problem Notes None recorded. Procedures Surgical History Date Name Laterality Status Provider Name and Address Organization Details Recorded Time Nail Avulsion - Partial completed ASHTYN BAUTISTA MD [facility] [place], [address], [place] - [facility] 11/04/2022 18:25:36 procedure on knee completed JALEN RIZZO PA - [facility] 11/04/2022 12:28:55 Imaging Results None recorded. Procedure Notes None recorded. Medical Equipment None Reported. Allergies Allergen ID Allergen Name Allergen Category Reaction Reaction Severity Criticality Documentation Date Start Date Code Code System Note Provider Name and Address Organization Details Recorded Time 103256 Product containin g penicilli n (product) medicatio n hives Not available Not available 11/04/2022 25289 8001 SNOMED JALEN bass, [place] - [facility] 3 12:26:34 629362 Substance with sulfonami de structure and antibacte rial mechanism of action (substanc e) medicatio n hives Not available Not available 11/04/2022 12073 8003 SNOMED JALEN bass, [place] - [facility] 3 12:26:45 372771 Keflex medicatio n hives Not available Not available 11/04/202275087 7 RxNorm JALEN bass, [place] - [facility] 3 12:26:53 Medications [...] Heart rate Respiratory rate Body temperature Systolic And Diastolic Provider Name and Address Organization Details Last Updated DateTime 3 154.94 cm 45.3 kg/m2 968508. 17 g 2 99 % 99 % 66 /min 18 /min 97.5 [degF] 134/86 mm[Hg] JALEN Ricardo [facility] 12:30:39 Social History Question Answer Notes LastModified by Organizat ion Details LastModified Time Tobacco Smoking Status Never Smoker LISA Rehman [facility] 11/04/2022 12:28:30 Have You Had Direct Contact, Or Contact During Intimacy, With Monkeypox Rash, Scabs, Or Body Fluids From A Person With Monkeypox? No Information not available 11/04/2022 Sex: Unknown Functional Status Question Answer Note LastModified by Organizat [employer] Details LastModified Time Do you use any illicit or recreational drugs? No Information not available 11/04/2022 Do you or have you ever used any other forms of tobacco or nicotine? No Information not available 11/04/2022 What is your level of alcohol consumption? Occasional Information not available 11/04/2022 Mental Status None recorded. Family History Relationship [...] Diagnosis SNOMED-CT Code Diagnosis ICD10 Code Diagnosis IMO Codes Diagnosis Note [id number] [address] [facility] [place] [address] 08/29/2020 17:05:48 08/29/2020 18:45:33 [id number] [address] [facility] [address] 03/13/2021 12:04:02 03/13/2021 13:23:04 [id number] ASHTYN BAUTISTA MD [address] [facility] [address] 11/04/2022 12:07:49 11/04/2022 17:33:38 Cellulitis of toe of right foot [id number] 4471076 L03.031 Change the dressing in 2 days.F/u for any increased swelling, redness, drainage, fever, or red streaks that travel up from the toe. Ingrowing nail of toe of right foot [id number] 8250837 L60.0 Change the dressing in 2 days.may take ibuprofen as directed on package for the appropriat e age range. Health Concerns Section Related Observation LastModified by Organization Detai ls LastModified Time None Recorded Concern Status LastModified by Organization Details LastModified Time None Recorded Advance Directives Directive None Recorded Payers Insurance Date Sequence Insurance Name Policy Number Policy Armijo Covered Member ID Armijo Member ID Guarantor Name 11/19/[address] [facility] [id number] 1 Martha Nelson [id number] Martha Nelson Notes Date Note Type Note Provider Name and Address Organization Details Recorded Time 11/04/2022 text/html ToesReported by PatientHPIFor location, patient reportsright. For quality, patient reportsaching,throbb ing,sharp, andsuperficial. For severity, patient reportssevere. For duration, patient reports1.5 months. For timing, patient reportschronic. For context, patient reportscannot identifyandatraumati c. For alleviating factors, patient reportsnothing helps. For aggravating factors, (wearing shoes.).ROS as noted in the HPI pt has pain in the right great toe, has an ingrown nail, redness x 1 1/2 mo. ASHTYN BAUTISTA MD [address] [place], [address], [place] - [facility] 11/19/2022 15:54:35 OBGyn Episode No OBEpisode recorded.
--- OUTSIDE RECORDS SUMMARY | 2025-07-17 17:50 | XMS_ITS | Clinical Summary ---
Author Organization [facility] Address [address] [place], [place] [id number] Phone Care Team Providers Care Construction Carpenter Name Role Phone Pcp, Unknown Primary Care [...] VACCINE (#1) 2025 COVID-19 VACCINE (1 - 2024-2 6 season) 2025 SMOKING STATUS SCREENING (On ce [...] HMO O O O O Care Teams Construction Carpenter Relationship Specialty Start Date End Date Pcp, Unknown PCP - General 11/08/22 Additional Source Comments The information contained in this document represents components of the legal health record. It is not the complete legal health record.[facility]
== END 2025-07-17 15:31 | disposition home or self-care (01) ==
LOC: HO.HOS 14:56
PROVIDERS: PCP Internal Medicine; Visit Provider Physician Assistant
DX: M17.12 Unilateral primary osteoarthritis, left knee (principal)
CPT/HCPCS: 20610

== ENCOUNTER → 2025-07-17 14:55 | Outpatient (BNVA) | payer OTHER, SELFPAY | PROVIDERS: PCP Internal Medicine; Visit Provider Physician Assistant | DX: M17.12 Unilateral primary osteoarthritis, left knee (principal) | CPT/HCPCS: 20610; J7323 ==

== ENCOUNTER 2025-07-24 14:17 | Outpatient (AMB) | payer OTHER, SELFPAY ==
--- OUTSIDE RECORDS SUMMARY | 2024-09-06 03:30 | XMS_ITS ---
Author Organization [facility] Address [address] [place] [address] Care Team Providers Care Correspondence School Teacher Name Role Phone Francoise Solares MD Primary Care Provider Ny Brown [phone] Encounters Encounter Location Date Provider Diagnosis [address] [address] 09/06/2024 Ny Mendoza Plan Of Treatment No Information Progress Notes * Francisco RAGLANDnDOB:[birth year] (50 yo F)Acc No.[id number]:09/06/2024 Progress Note Patient: Martha YADAV Provider: Fabrice Mendoza DPM :1975 A ge:49 Y S ex:Female Date:09/06/2024 Address:[address] [place], [place] [id number] Pcp:Francoise Solares MD Subjective: * Chief Complaints: [...] Date: 11/07/2023 Generated for Printi ng/Faxing/eTransmitting on: 09/23/2024 05:27 PM EST
--- OUTSIDE RECORDS SUMMARY | 2024-11-08 03:45 | XMS_ITS ---
Author Organization [facility] Address [address] [place] [address] Care Team Providers Care Compliance Specialist Name Role Phone Francoise Solares MD Primary Care Provider Ny Brown [phone] Allergies Allergen (clinical drug ingredient) Drug/Non Drug Allergy documented on EMR Reaction Allergy Type Onset Date Status Keflex rash Drug Allergy Active Penicillin rash Drug Allergy Active Substance with sulfonamide structure and antibacterial mechanism of action (substance) Sulfa Antibiotics rash Drug Allergy Active Medications Medication SIG (Take, Route, Frequency, Duration) Notes Start Date End Date Status Terbinafine HCl 250 MG 1 tablet Orally O nce a day for 7 days days then stop for 3 weeks repeat cycle; Duration: 90 days 09/06/2023 Active Nightsplint AFO Wear As directed; Duration: as needed 08/25/2023 Active Piroxicam 20 MG 1 capsule with food Orally Once a day; Duration: 30 days 08/23/2024 Active Custom Orthotics as directed 08/25/2023 Active Night Splint AFO - L1930 1 wear at rest; Duration: 30 days Active Feldene 20 MG 1 capsule with food Orally Once a day; Duration: 30 days 08/01/2023 Not-Taking Ciclopirox 8 % 1 application Sales Leader ally Once a day; Duration: 30 08/23/2024 Active Bisoprolol Fumarate 5 MG 1 tablet Orally Once a day; Duration: 30 day(s) Active Encounters Encounter [facility] Date [facility] [address] [facility]/08/2024 Ny Mendoza Plan Of Treatment No Information Progress Notes * Francisco RAGLANDnDOB:[birth year] (50 yo F)Acc No.[id number]:11/08/2024 Progress Note Patient: Martha YADAV Provider: Fabrice Mendoza DPM :1975 A ge:49 Y S ex:Female Date:11/08/2024 Address:[address] [place], [place] [id number] Pcp:Francoise Solares MD Subjective: * Chief Complaints: * * Medical History: B ack,Hip,and Knee pain, Broken bones, Covid-19, Gall bladder problems, High blood pressure, Chicken pox. * Surgical History: k nee surgery, left 1993/1994, knee surgery, right 2009, cyst removal 2003, Gall bladder removal 2015. * Medications: T aking Bisoprolol Fumarate 5 MG Tablet 1 tablet Orally Once a day , Taking Night Splint AFO - L1930 1 wear at rest , Taking Custom Orthotics as directed , Taking Nightsplint AFO Wear As directed , Taking Terbinafine HCl 250 MG Tablet 1 tablet Orally Once a day for 7 days days then stop for 3 weeks repeat cycle , Taking Piroxicam 20 MG Capsule 1 capsule with food Orally Once a day , Taking Ciclopirox 8 % Solution 1 application Externally Once a day , Not-Taking/PRN Feldene 20 MG Capsule 1 capsule with food Orally Once a day * Allergies: P enicillin: rash, Keflex: rash, Sulfa Antibiotics: rash. Objective: * Vitals: Assessment: Plan: * Treatment: * Images: * The named appointment provid er may or may not be the originator of this progress note, and it is not deemed complete until electronically signed by the appointment provider. Sign off status: Pending * Provider: Fabrice Mendoza DPM Date: 0 11/08/2024 Generated for Gabe chaudhari/Karina/Cynthia on: 09/23/2024 05:27 PM EST
--- OUTSIDE RECORDS SUMMARY | 2024-11-22 07:15 | XMS_ITS ---
Author Organization [facility] Address [address] [place] [address] Care Team Providers Care Nut Former Name Role Phone Francoise Solares MD Primary Care Provider Ny Brown [phone] Encounters Encounter Location Date Provider Diagnosis [address] [address] 11/22/2024 Ny Mendoza Plan Of Treatment No Information Progress Notes * Francisco RAGLANDnDOB:[birth year] (50 yo F)Acc No.[id number]:11/22/2024 Progress Notes Patient: Martha YADAV Provider: Fabrice Mendoza DPM :1975 A ge:49 Y S ex:Female Date:11/22/2024 Address:[address] [place], [place] [id number] Pcp:Francoise Solares MD Subjective: * Chief Complaints: [...] 0 11/22/2024 Generated for Printi ng/Faxing/eTransmitting on: 09/23/2024 05:26 PM EST
--- OUTSIDE RECORDS SUMMARY | 2025-06-06 04:30 | XMS_ITS ---
Author Organization [facility] Address [address] [place] [address] Care Team Providers Care Power Superintendent Name Role Phone Francoise Solares MD Primary Care Provider Ny Brown [phone] Encounters Encounter Location Date Provider Diagnosis [address] [address] 06/06/2025 Ny Mendoza Plan Of Treatment No Information Progress Notes * Maris RAGLANDonealnDOB:[birth year] (50 yo F)Acc No.[id number]:06/06/2025 Progress Note Patient: Martha YADAV Provider: Fabrice Mendoza DPM :1975 A ge:50 Y S ex:Female Date:06/06/2025 Address:[address] [place], [place] [id number] Pcp:Francoise Solares MD Subjective: * Chief Complaints: * * Medical History: Objective: * Vitals: Assessment: Plan: * Treatment: * Images: * The named appointment provid er may or may not be the originator of this progress note, and it is not deemed complete until electronically signed by the appointment provider. Sign off status: Pending * Provider: Fabrice Mendoza DPM Date: 0 06/06/2025 Generated for Printi ng/Faxing/eTransmitting on: 09/23/2024 05:27 PM EST
--- NOTE | 2025-07-24 14:27 | A.OFFVIS_ITS ---
Vital Signs 07/24/25 14:31 Height 5 ft 1 in Weight 248 lb BMI 46.9 Intake Visit Reasons: INJ-LT knee Euflexxa #2 Intake Note: Martha is a 50 year old female who presents today for a left knee Euflexxa injection #2. Allergies amlodipine Adverse Reaction (Intermediate, Verified 07/24/25 14:31) cough semaglutide (From Wegovy) Adverse Reaction (Intermediate, Verified 07/24/25 14:31) Blurry Vision cephalexin (From Keflex) Adverse Reaction (Verified 07/24/25 14:31) Rash Penicillins Adverse Reaction (Verified 07/24/25 14:31) Rash Sulfa (Sulfonamide Antibiotics) Adverse Reaction (Verified 07/24/25 14:31) Rash HPI HPI INJ-LT knee Euflexxa #2: Details: 50 year old female who presents today for a left knee Euflexxa injection #2. [facility] Medical History HTN (hypertension) Irregular menses Anxiety Enlarged thyroid Grieving Overweight Normal pelvic exam Annual physical exam Surgical History Hx of colonoscopy Hx of cholecystectomy S/P knee surgery Family History Father HTN (hypertension) DM (diabetes mellitus) Mother HTN (hypertension) Stroke Social History Household Members Other:: , no children, work at [employer], Housing: House Patient Tobacco Use Status: Never used Tobacco e-Cigarette/Vaping Use: Never Used Second Hand Smoke Exposure: Yes service: No Current occupational status: employed Current occupation: [employer] Cognitive needs: No Hearing needs: No Vision needs: No Review of Systems Const All systems reviewed & are unremarkable except as noted in HPI and below Physical Exam Vital Signs: BMI result Body Mass Index 46.9 Const General: cooperative, healthy appearing, comfortable, no acute distress, well developed and alert Orientation/consciousness: patient oriented x3 HEENT Head: Yes normal to inspection, Yes normocephalic and Yes atraumatic Eyes General: appearance normal, both eyes and all related structures Resp Effort & Inspection: normal respiratory effort and able to speak in complete sentences Cardio Rate: regular rate Peripheral pulses: Peripheral pulses 2+ throughout GI Palpation (GI): Soft to palpation Skin Lesions: no lesions Rashes: no rashes Neuro General: patient oriented x3 Extrem Other: Left knee: Skin intact, no erythema or joint effusion. Tenderness along the medial joint line. Full ROM with crepitus. Negative Trip?s. No ligamentous laxity. NVI. ? Office Procedures AMB Joint Injection/Aspiration Joint Injection/Aspiration Details: #2 euflexxa Primary Site: left knee Prep: site was prepped using aseptic technique, ethochloride spray was applied and injection warnings given Injected: in the joint Approach Used: anterolateral Procedure: The patient tolerated the procedure well Coding 09378 - Glenohumeral/Tronchanteric Bursa/Intraarticular Procedure code (CPT) selection complete Assessment & Plan Assessment & Plan (1) Osteoarthritis of left knee: Code(s): M17.12 - Unilateral primary osteoarthritis, left knee Category: Medical Plan: Plan was to proceed with gel injection today. #2 euflexxa Injection performed today which the patient tolerated well. She will rest ice and use anti- inflammatories as needed for the next several days. I will see her back in 1 week for injection number 3 Coding Level of Care Code Procedure Only Diagnoses Osteoarthritis of left knee M17.12 CPT Codes Coding - Joint 7: 88444 - Glenohumeral/Tronchanteric Bursa/Intraarticular ([id number])
[2025-07-24 14:31] VITALS: BMI 46.9
--- OUTSIDE RECORDS SUMMARY | 2025-07-24 17:27 | XMS_ITS | Patient Health Record ---
[facility] Address [address] [place] [address] Care Team Providers Care Band Attacher Name Role Phone Francoise Solares MD Primary Care Provider Unavailaugustine MendozaStepheniee Unavailable [phone] Allergies Allergen (clinical drug ingredient) Drug/Non Drug [...] Ulcer of toe of right foot (disorder) ([id number] 717201) Skin ulcer of toe of right foot, [...] Ordered Date Performed Result Body Sit e 91534-XYQ 01/10/2025 N/A 34531-HWTIOCH SKIN/TISSUE 01/24/2025 N/A 12405- Debride <25 sq cm 03/07/2025 N/A Encounters Encounter Location Date Provider Diagnosis [facility] [address] 08/23/2024 Ny Black Tinea unguium B35.1 ; Plantar fasciitis, right M72.2 ; Pain in right foot M79.671 ; Other myositis of right foot M60.871 ; Bursitis of right foot M77.51 ; Pain in right toe(s) M79.674 and Pain in left toe(s) M79.[address] [facility] [address] [address] 11/01/2024 Ny Black Plantar fasciitis, right M72.2 ; Ingrown nail L60.0 ; Tinea unguium B35.1 ; Pain in right foot M79.671 ; Other myositis of right foot M60.871 ; Bursitis of right foot M77.51 ; Pain in right toe(s) M79.674 and Pain in left toe(s) M79.[address] [address] 01/10/2025 Ny Black Ingrown nail L60.[address] [address] 01/24/2025 Ny Black Skin ulcer of toe of right foot with fat layer exposed L97.[address] [address] 03/07/2025 Ny Black Tinea unguium B35.1 ; Pain in right toe(s) M79.674 ; Pain in left toe(s) M79.675 and Skin ulcer of toe of right foot, limited to breakdown of skin L97.[address] [address] 08/06/2024 Ny Black [address] [address] 08/27/2024 Ny Black [address] [address] 05/14/2025 Ny Black Assessments Encounter Date Diagnosis [...] (LFT) 08/25/2023 *Liver Function Test (LFT) 03/06/2024 98629-SYO 01/10/2025 86704- Debride <25 sq cm 08/25/2023 10121- Debride <25 sq cm 03/07/2025 35111-JBPWUEA SKIN/TISSUE 01/24/2025 Insurance Providers Payer Name Payer Address Payer Phone Subscriber Number Group Number Insured Name Patient Relationship to Insured Coverage Start Date Coverage End Date [facility] [address] [facility], [place] [address] [phone] [id number] Martha Nelson Self - patient is the insured Medical (General) History Medical History History ICD Code Back,Hip,and Knee pain Broken bones covid-19 Gall bladder problems High blood pressure Chicken pox Surgical History Surgery Date(Month/Year) knee surgery, left 1993/1994 knee surgery, right 2009 cyst removal 2003 Gall bladder removal 2015
--- OUTSIDE RECORDS SUMMARY | 2025-07-24 17:27 | XMS_ITS | Clinical Summary ---
Author Organization [facility] Address [address] [place], [place] [address] Phone Care Team Providers Care Product Support Technician Name Role Phone Pcp, Unknown Primary Care [...] HMO O O O O Care Teams Product Support Technician Relationship Specialty Start Date End Date Pcp, Unknown PCP - General 11/08/22 Additional Source Comments The information contained in this document represents components of the legal health record. It is not the complete legal health record.[facility]
--- OUTSIDE RECORDS SUMMARY | 2025-07-24 17:27 | XMS_ITS | Data Portability ---
Author Organization [place] - [facility] [address] Address [address] [place] [address] Care Team Providers Care Photogeologist Name Role Phone [facility] Primary Care Provider Assessment No assessment recorded. Plan of Treatment Reminders Order Date Submit Date Provider Last Modified By Organization Details Last Modified Time Details Appointments None recorded. Lab None recorded. Referral None recorded. Procedures None recorded. Surgeries None recorded. Imaging None recorded. Medication Orders doxycycline hyclate 100 mg capsule 2022 023 [email or web address] [facility] #[id number], [address] [facility] [place], [address], 15:52:15 Patient TargetsNo targets recorded. Patient Instructions Encounter Date Encounter Id Patient Instructions Last Modified By Organization Details Last Modified Time 11/04/2022 [id number] ingrown toenail: care instructions [id number] Not available 11/19/2022 15:54:20 Reason for Referral None Reported. Problems Name Problem SNOMED Code Status Onset Date Resolution Date Notes Provider Name and Address Organization Details Recorded Time Hypertensive disorder 18074528 Active JALNE bass [place] - [facility] 12:27:29 Problem Notes None recorded. Procedures Surgical History Date Name Laterality Status Provider Name and Address Organization Details Recorded Time Nail Avulsion - Partial completed ASHTYN BAUTISTA MD [facility] [place], [address], [place] - [facility] 11/04/2022 18:25:36 procedure on knee completed JALEN RIZZO PA - [facility] 11/04/2022 12:28:55 Imaging Results None recorded. Procedure Notes None recorded. Medical Equipment None Reported. Allergies Allergen ID Allergen Name Allergen Category Reaction Reaction Severity Criticality Documentation Date Start Date Code Code System Note Provider Name and Address Organization Details Recorded Time 760666 Product containin g penicilli n (product) medicatio n hives Not available Not available 11/04/2022 36834 8001 SNOMED JLAEN bass, [place] - [facility] 3 12:26:34 531607 Substance with sulfonami de structure and antibacte rial mechanism of action (substanc e) medicatio n hives Not available Not available 11/04/2022 48439 8003 SNOMED JALEN bass, PA - [facility] 3 12:26:45 528764 Keflex medicatio n hives Not available Not available 11/04/202248436 7 RxNorm JALEN bass, [facility] - [facility] [...] Updated DateTime 3 154.94 cm 45.3 kg/m2 755045. 17 g 2 99 % 99 % [...] Status Question Answer Note LastModified by Organizat daPulse Details LastModified Time Do you use any [...] ICD10 Code Diagnosis IMO Codes Diagnosis Note [id number] [address] [facility] [place] [address] 08/29/2020 17:05:48 08/29/2020 18:45:33 [id number] [address] [facility] [address] 03/13/2021 12:04:02 03/13/2021 13:23:04 [id number] ASHTYN BAUTISTA MD [address] [facility] [address] 11/04/2022 12:07:49 11/04/2022 17:33:38 Cellulitis of toe of right foot 4193924324 3559590 L03.031 Change the dressing in 2 days.F/u for any increased swelling, redness, drainage, fever, or red streaks that travel up from the toe. Ingrowing nail of toe of right foot 5662302852 1136785 L60.0 Change the dressing in 2 days.may [...] Armijo Member ID Guarantor Name 11/19/2022 1 [facility] [id number] 1 Martha Nelson [id number] Martha Nelson Notes Date Note Type Note [...] BAUTISTA MD [address] [place], [address], [place] - [facility] 11/19/2022 15:54:35 OBGyn Episode No OBEpisode recorded.
== END 2025-07-24 14:45 | disposition home or self-care (01) ==
LOC: HO.HOS 14:17
PROVIDERS: PCP Internal Medicine; Visit Provider Physician Assistant
DX: M17.12 Unilateral primary osteoarthritis, left knee (principal)
CPT/HCPCS: 20610

== ENCOUNTER → 2025-07-24 14:17 | Outpatient (BNVA) | payer OTHER, SELFPAY | PROVIDERS: PCP Internal Medicine; Visit Provider Physician Assistant | DX: M17.12 Unilateral primary osteoarthritis, left knee (principal) | CPT/HCPCS: 20610; J7323 ==

== ENCOUNTER 2025-07-31 14:10 | Outpatient (AMB) | payer OTHER, SELFPAY ==
--- OUTSIDE RECORDS SUMMARY | 2024-09-06 03:30 | XMS_ITS ---
Author Organization [facility] Address [address] [place] [address] Care Team Providers Care Meat Pumper Name Role Phone Francoise Solares MD Primary Care Provider Ny Brown [phone] Encounters Encounter Location Date Provider Diagnosis [address] [address] 09/06/2024 Ny Mendoza Plan Of Treatment No Information Progress Notes * Francisco RAGLANDnDOB:[birth year] (50 yo F)Acc No.[id number]:09/06/2024 Progress Note Patient: Martha YADAV Provider: Fabrice Mendoza DPM :1975 A ge:49 Y S ex:Female Date:09/06/2024 Address:[address] [place], [place] [id number] Pcp:Francoise Solares MD Subjective: * Chief Complaints: * * Medical History: Objective: * Vitals: Assessment: Plan: * Treatment: * Images: * The named appointment provid er may or may not be the originator of this progress note, and it is not deemed complete until electronically signed by the appointment provider. Sign off status: Pending * Provider: Fabrice Mendoza DPM Date: 11/07/2023 Generated for Printi ng/Faxing/eTransmitting on: 09/30/2024 05:34 PM EST
--- OUTSIDE RECORDS SUMMARY | 2024-11-08 03:45 | XMS_ITS ---
Author Organization [facility] Address [address] [facility] [place] [address] Care Team Providers Care Razor Grinder Name Role Phone Francoise Solares MD Primary Care Provider Ny Brown [phone] Allergies Allergen (clinical drug ingredient) Drug/Non Drug [...] 08/01/2023 Not-Taking Ciclopirox 8 % 1 application Blow Pit Operator ally Once a day; Duration: 30 08/23/2024 Active Bisoprolol Fumarate 5 MG 1 tablet Orally Once a day; Duration: 30 day(s) Active Encounters En[facility] [address] 11/08/2024 Ny Mendoza Plan Of Treatment No Information Progress Notes * Francisco RAGLANDnDOB:[birth year] (50 yo F)Acc No.[id number]:11/08/2024 Progress Note Patient: Martha YADAV Provider: Fabrice Mendoza DPM :1975 A ge:49 Y S ex:Female Date:11/08/2024 Address:[address] [place], [place] [id number] Pcp:Francoise Solares MD Subjective: * Chief Complaints: [...] 0 11/08/2024 Generated for Gabe chaudhari/Karina/Cynthia on: 09/30/2024 05:33 PM EST
--- OUTSIDE RECORDS SUMMARY | 2024-11-22 07:15 | XMS_ITS ---
Author Organization [facility] Address [address] [place] [address] Care Team Providers Care Measurement Advisor Name Role Phone Francoise Solares MD Primary Care Provider Ny Brown [phone] Encounters Encounter Location Date Provider Diagnosis [address] [address] 11/22/2024 Ny Mendoza Plan Of Treatment No Information Progress Notes * Francisco RAGLANDnDOB:[birth year] (50 yo F)Acc No.[id number]:11/22/2024 Progress Notes Patient: Martha YADAV Provider: Fabrice Mendoza DPM :1975 A ge:49 Y S ex:Female Date:11/22/2024 Address:[address] [place], [place] [id number] Pcp:Francoise Solares MD Subjective: * Chief Complaints: * * Medical History: Objective: * Vitals: Assessment: Plan: * Treatment: * Images: * The named appointment provid er may or may not be the originator of this progress note, and it is not deemed complete until electronically signed by the appointment provider. Sign off status: Pending * Provider: Fabrice Mendoza DPM Date: 0 11/22/2024 Generated for Printi ng/Faxing/eTransmitting on: 09/30/2024 05:33 PM EST
--- OUTSIDE RECORDS SUMMARY | 2025-06-06 04:30 | XMS_ITS ---
Author Organization [facility] Address [address] [place] [address] Care Team Providers Care Filler Operator Name Role Phone Francoise Solares MD Primary Care Provider Ny Brown [phone] Encounters Encounter Location Date Provider Diagnosis [address] [address] 06/06/2025 Ny Mendoza Plan Of Treatment No Information Progress Notes * Maris RAGLANDonealnDOB:[birth year] (50 yo F)Acc No.[id number]:06/06/2025 Progress Note Patient: Martha YADAV Provider: Fabrice Mendoza DPM :1975 A ge:50 Y S ex:Female Date:06/06/2025 Address:[address] [place], [place] [id number] Pcp:Francoise Solares MD Subjective: * Chief Complaints: [...] 0 06/06/2025 Generated for Printi ng/Faxing/eTransmitting on: 09/30/2024 05:33 PM EST
--- NOTE | 2025-07-31 14:27 | A.OFFVIS_ITS ---
Intake Visit Reasons: INJ- LT knee Euflexxa inj #3 Intake Note: Martha is a 50 year old female who presents today for an injection in her left knee, Euflexxa injection #3. At today's visit she states that she would like to discuss cortisone injection as well due to her pain. Allergies amlodipine Adverse Reaction (Intermediate, Verified 07/24/25 14:31) cough semaglutide (From Wegovy) Adverse Reaction (Intermediate, Verified 07/24/25 14:31) Blurry Vision cephalexin (From Keflex) Adverse Reaction (Verified 07/24/25 14:31) Rash Penicillins Adverse Reaction (Verified 07/24/25 14:31) Rash Sulfa (Sulfonamide Antibiotics) Adverse Reaction (Verified 07/24/25 14:31) Rash Medication List - Last Reconciled 07/31/25 by Tanisha Frazier PA-C bisoprolol fumarate 5 mg PO DAILY celecoxib (Celebrex) 200 mg PO BID 30 days cholecalciferol (vitamin D3) 50 mcg PO DAILY turmeric root extract 538 mg PO DAILY HPI HPI INJ- LT knee Euflexxa inj #3: Details: 50-year-old female returns to the office today for her 3rd Euflexxa injection in the left knee. She is doing well with minimal discomfort in the left knee which extends behind the knee and down the leg. [facility] Medical History HTN (hypertension) Irregular menses Anxiety Enlarged thyroid Grieving Overweight Normal pelvic exam Annual physical exam Surgical History Hx of colonoscopy Hx of cholecystectomy S/P knee surgery Family History Father HTN (hypertension) DM (diabetes mellitus) Mother HTN (hypertension) Stroke Social History Household Members Other:: , no children, work at [employer], Housing: House Patient Tobacco Use Status: Never used Tobacco e-Cigarette/Vaping Use: Never Used Second Hand Smoke Exposure: Yes service: No Current occupational status: employed Current occupation: [employer] M[employer] Cognitive needs: No Hearing needs: No Vision needs: No Review of Systems Const All systems reviewed & are unremarkable except as noted in HPI and below Physical Exam Const General: cooperative, healthy appearing, comfortable, no acute distress, well developed and alert Orientation/consciousness: patient oriented x3 HEENT Head: Yes normal to inspection, Yes normocephalic and Yes atraumatic Eyes General: appearance normal, both eyes and all related structures Resp Effort & Inspection: normal respiratory effort and able to speak in complete sentences Cardio Rate: regular rate Peripheral pulses: Peripheral pulses 2+ throughout GI Palpation (GI): Soft to palpation Skin Lesions: no lesions Rashes: no rashes Neuro General: patient oriented x3 Extrem Other: Left knee: Skin intact, no erythema or joint effusion. Tenderness along the medial joint line. Full ROM with crepitus. Negative Trip?s. No ligamentous laxity. NVI. ? Office Procedures AMB Joint Injection/Aspiration Joint Injection/Aspiration Primary Site: Left Knee Prep: site was prepped using aseptic technique, ethochloride spray was applied and injection warnings given Injected: 40 mg of, DepoMedrol, with 3 mL of, 1% plain Lidocaine, 0.25% Bupivacaine and in the joint (along with euflexxa ) Approach Used: anterolateral Procedure: The patient tolerated the procedure well and there was some relief with the local anesthesia Coding 01805 - Glenohumeral/Tronchanteric Bursa/Intraarticular Procedure code (CPT) selection complete Assessment & Plan Assessment & Plan (1) Osteoarthritis of left knee: Code(s): M17.12 - Unilateral primary osteoarthritis, left knee Category: Medical Plan: Plan was to proceed with gel injection today along with steroid injection to help with her acute flare. #3 euflexxa with steroid Injection performed today which the patient tolerated well. She will rest ice and use anti-inflammatories as needed for the next several days. If symptoms persist or worsen she can contact our office otherwise follow up as needed. Coding Level of Care Code Procedure Only Diagnoses Osteoarthritis of left knee M17.12 CPT Codes Coding - Joint 7: 63547 - Glenohumeral/Tronchanteric Bursa/Intraarticular ([id number])
--- OUTSIDE RECORDS SUMMARY | 2025-07-31 17:34 | XMS_ITS | Data Portability ---
Author Organization [place] - [facility] [address] Address [address] [place] [address] Care Team Providers Care Art Gilder Name Role Phone [facility] Primary Care Provider Assessment No assessment recorded. Plan of Treatment Reminders Order Date Submit Date Provider Last Modified By Organization Details Last Modified Time Details Appointments None recorded. Lab None recorded. Referral None recorded. Procedures None recorded. Surgeries None recorded. Imaging None recorded. Medication Orders doxycycline hyclate 100 mg capsule 2022 023 [email or web address] [facility]arm[facility] #[id number], [address] [facility] [facility] [place], [address], 15:52:15 Patient TargetsNo targets recorded. Patient Instructions Encounter Date Encounter Id Patient Instructions Last Modified By Organization Details Last Modified Time 11/04/2022 [id number] ingrown toenail: care instructions [id number] Not available 11/19/2022 15:54:20 Reason for Referral None Reported. Problems Name Problem SNOMED Code Status Onset Date Resolution Date Notes Provider Name and Address Organization Details Recorded Time Hypertensive disorder 22447610 Active JALEN bass PA - [facility] 12:27:29 Problem Notes None recorded. Procedures Surgical History Date Name Laterality Status Provider Name and Address Organization Details Recorded Time Nail Avulsion - Partial completed ASHTYN BAUTISTA MD [facility] [place], [address], [place] - [facility] 11/04/2022 18:25:36 procedure on knee completed JALEN RIZZO PA - [facility] 11/04/2022 12:28:55 Imaging Results None recorded. Procedure Notes None recorded. Medical Equipment None Reported. Allergies Allergen ID Allergen Name Allergen Category Reaction Reaction Severity Criticality Documentation Date Start Date Code Code System Note Provider Name and Address Organization Details Recorded Time 230332 Product containin g penicilli n (product) medicatio n hives Not available Not available 11/04/2022 41171 8001 SNOMED JALEN bass, [place] - [facility] 3 12:26:34 843888 Substance with sulfonami de structure and antibacte rial mechanism of action (substanc e) medicatio n hives Not available Not available 11/04/2022 83627 8003 SNOMED JALEN bass, PA - [facility] 3 12:26:45 534432 Keflex medicatio n hives Not available Not available 11/04/202262905 7 RxNorm JALEN bass, [facility] [...] Updated DateTime 3 154.94 cm 45.3 kg/m2 765795. 17 g 2 99 % 99 % [...] Status Question Answer Note LastModified by Organizat Kampyle Details LastModified Time Do you use any [...] ICD10 Code Diagnosis IMO Codes Diagnosis Note [id number] [address] [place] [address] 08/29/2020 17:05:48 08/29/2020 18:45:33 [id number] [address] [place] [address] 03/13/2021 12:04:02 03/13/2021 13:23:04 [id number] ASHTYN BAUTISTA MD [address] [place] [address] 11/04/2022 12:07:49 11/04/2022 17:33:38 Cellulitis of toe of right foot 9679550661 6155268 L03.031 Change the dressing in 2 days.F/u for any increased swelling, redness, drainage, fever, or red streaks that travel up from the toe. Ingrowing nail of toe of right foot [id number] 1140160 L60.0 Change the dressing in 2 days.may [...] Armijo Member ID Guarantor Name 11/19/2022 1 [facility] [id number] 1 Martha Nelsno [id number] Martha Nelson Notes Date Note Type Note [...] BAUTISTA MD [address] [place], [address], [place] - [facility] 11/19/2022 15:54:35 OBGyn Episode No OBEpisode recorded.
--- OUTSIDE RECORDS SUMMARY | 2025-07-31 17:34 | XMS_ITS | Clinical Summary ---
Author Organization [facility] Address [address] [place], [place] [address] Phone Care Team Providers Care Slasher Hand Name Role Phone Pcp, Unknown Primary Care [...] 2022 INFLUENZA VACCINE (#1) 2025 COVID-19 VACCINE ( - 2024-2 6 season) 2025 SMOKING STATUS SCREENING (On ce After 26 Yrs) Completed 11/08/2022 HEPATITIS A VACCINES Aged Out No long er eligible based on patient's age to complete this topic HIB VACCINES Aged Out No longer eligi ble based on patient's age to complete this topic IPV VACCINES Aged Out No longer eligi ble [...] Not on file Insurance HMO [address] [place] [id number] O O Care Teams Slasher Hand Relationship Specialty Start Date End Date Pcp, Unknown PCP - General 11/08/22 Additional Source Comments The information contained in this document represents components of the legal health record. It is not the complete legal health record.[facility]
--- OUTSIDE RECORDS SUMMARY | 2025-07-31 17:34 | XMS_ITS | Patient Health Record ---
[facility] Address [address] [place] [address] Care Team Providers Care Cable Installer Repairer Name Role Phone Francoise Solares MD Primary Care Provider Unavailaugustine MendozaStepheniee Unavailable [phone] Allergies Allergen (clinical drug ingredient) Drug/Non Drug [...] Ulcer of toe of right foot (disorder) ([id number] 361347) Skin ulcer of toe of right foot, [...] Ordered Date Performed Result Body Sit e 03361-DAS 01/10/2025 N/A 29352-EPKWJNN SKIN/TISSUE 01/24/2025 N/A 01609- Debride <25 sq cm 03/07/2025 N/A Encounters Encounter Location Date Provider Diagnosis [facility] [address] 08/23/2024 Ny Black Tinea unguium B35.1 ; Plantar fasciitis, right M72.2 ; Pain in right foot M79.671 ; Other myositis of right foot M60.871 ; Bursitis of right foot M77.51 ; Pain in right toe(s) M79.674 and Pain in left toe(s) M79.[address] [facility] [address] [address] 11/01/2024 Ny Black Plantar fasciitis, right M72.2 ; Ingrown nail L60.0 ; Tinea unguium B35.1 ; Pain in right foot M79.671 ; Other myositis of right foot M60.871 ; Bursitis of right foot M77.51 ; Pain in right toe(s) M79.674 and Pain in left toe(s) M79.[address] [address] 01/10/2025 Ny Black Ingrown nail L60.[address] [address] 01/24/2025 Ny Black Skin ulcer of toe of right foot with fat layer exposed L97.[address] [address] 03/07/2025 Ny Black Tinea unguium B35.1 ; Pain in right toe(s) M79.674 ; Pain in left toe(s) M79.675 and Skin ulcer of toe of right foot, limited to breakdown of skin L97.[address] [address] 08/06/2024 Ny Black [address] [address] 08/27/2024 Ny Black [address] [address] 05/14/2025 Ny Black Assessments Encounter Date Diagnosis [...] (LFT) 08/25/2023 *Liver Function Test (LFT) 03/06/2024 30705-YRQ 01/10/2025 05861- Debride <25 sq cm 08/25/2023 63263- Debride <25 sq cm 03/07/2025 61996-BQPSNOD SKIN/TISSUE 01/24/2025 Insurance Providers Payer Name Payer Address Payer Phone Subscriber Number Group Number Insured Name Patient Relationship to Insured Coverage Start Date Coverage End Date [facility] [address] [facility], [place] [address] [id number] Martha Nelson Self - patient is the insured Medical (General) History Medical History History ICD Code Back,Hip,and Knee pain Broken bones covid-19 Gall bladder problems High blood pressure Chicken pox Surgical History Surgery Date(Month/Year) knee surgery, left 1993/1994 knee surgery, right 2009 cyst removal 2003 Gall bladder removal 2015
== END 2025-07-31 15:18 | disposition home or self-care (01) ==
LOC: HO.HOS 14:11
PROVIDERS: PCP Internal Medicine; Visit Provider Physician Assistant
DX: M17.12 Unilateral primary osteoarthritis, left knee (principal)
CPT/HCPCS: 20610

== ENCOUNTER → 2025-07-31 14:10 | Outpatient (BNVA) | payer OTHER, SELFPAY | PROVIDERS: PCP Internal Medicine; Visit Provider Physician Assistant | DX: M17.12 Unilateral primary osteoarthritis, left knee (principal) | CPT/HCPCS: 20610; J0665; J1100; J2003; J7323 ==

== ENCOUNTER 2025-08-21 14:04 | Outpatient (AMB) | payer OTHER, SELFPAY ==
--- OUTSIDE RECORDS SUMMARY | 2024-09-06 03:30 | XMS_ITS ---
Author Organization [facility] Address [address] [place] [address] Care Team Providers Care Travel Pta Name Role Phone Francoise Solares MD Primary Care Provider Ny Brown [phone] Encounters Encounter Location Date Provider Diagnosis [address] [address] 09/06/2024 Ny Mendoza Plan Of Treatment No Information Progress Notes * Francisco RAGLANDnDOB:[birth year] (50 yo F)Acc No.[id number]:09/06/2024 Progress Note Patient: Martha YADAV Provider: Fabrice Mendoza DPM :1975 A ge:49 Y S ex:Female Date:09/06/2024 Address:[address] [place], [place] [id number] Pcp:Francoise Solares MD Subjective: * Chief Complaints: [...] Date: 11/07/2023 Generated for Printi ng/Faxing/eTransmitting on: 10/22/2024 07:26 PM EST
--- OUTSIDE RECORDS SUMMARY | 2024-11-08 03:45 | XMS_ITS ---
Author Organization [facility] Address [address] [facility] [place] [address] Care Team Providers Care Seam Closer Name Role Phone Francoise Solares MD Primary Care Provider Ny Brown [phone] Allergies Allergen (clinical drug ingredient) Drug/Non Drug [...] 08/01/2023 Not-Taking Ciclopirox 8 % 1 application Property Site Manager ally Once a day; Duration: 30 08/23/2024 Active Bisoprolol Fumarate 5 MG 1 tablet Orally Once a day; Duration: 30 day(s) Active Encounters En[facility] [address] 11/08/[facility]24 Ny Mendoza Plan Of Treatment No Information Progress Notes * Francisco RAGLANDnDOB:[birth year] (50 yo F)Acc No.[id number]:11/08/2024 Progress Note Patient: Martha YADAV Provider: Fabrice Mendoza DPM :1975 A ge:49 Y S ex:Female Date:11/08/2024 Address:[address] [place], [place] [id number] Pcp:Francoise Solares MD Subjective: * Chief Complaints: [...] 0 11/08/2024 Generated for Gabe chaudhari/Karina/Cynthia on: 10/22/2024 07:26 PM EST
--- OUTSIDE RECORDS SUMMARY | 2024-11-22 07:15 | XMS_ITS ---
Author Organization [facility] Address [address] [place] [address] Care Team Providers Care Winding Operator Name Role Phone Francoise Solares MD Primary Care Provider Ny Brown [phone] Encounters Encounter Location Date Provider Diagnosis [address] [address] 11/22/2024 Ny Mendoza Plan Of Treatment No Information Progress Notes * Francisco RAGLANDnDOB:[birth year] (50 yo F)Acc No.[id number]:11/22/2024 Progress Notes Patient: Martha YADAV Provider: Fabrice Mendoza DPM :1975 A ge:49 Y S ex:Female Date:11/22/2024 Address:[address] [place], [place] [id number] Pcp:Francoise Solares MD Subjective: * Chief Complaints: [...] 0 11/22/2024 Generated for Printi ng/Faxing/eTransmitting on: 10/22/2024 07:26 PM EST
--- OUTSIDE RECORDS SUMMARY | 2025-06-06 04:30 | XMS_ITS ---
Author Organization [facility] Address [address] [place] [address] Care Team Providers Care Lacquer Dipping Machine Operator Name Role Phone Francoise Solares MD Primary Care Provider Ny Brown [phone] Encounters Encounter Location Date Provider Diagnosis [address] [address] 06/06/2025 Ny Mendoza Plan Of Treatment No Information Progress Notes * Maris RAGLANDonealnDOB:[birth year] (50 yo F)Acc No.[id number]:06/06/2025 Progress Note Patient: Martha YADAV Provider: Fabrice Mendoza DPM :1975 A ge:50 Y S ex:Female Date:06/06/2025 Address:[address] [place], [place] [id number] Pcp:Francoise Solares MD Subjective: * Chief Complaints: [...] 0 06/06/2025 Generated for Printi ng/Faxing/eTransmitting on: 1 10/22/2024 07:26 PM EST
--- NOTE | 2025-08-21 14:13 | A.OFFPC_ITS ---
Vital Signs 08/21/25 14:28 Height 5 ft 1 in Weight 241 lb BMI 45.5 BP 120/70 Blood Pressure Location Lt brachial Position Sitting Respiration 17 Pulse 72 Pulse Source Pulse Oximeter Temp 97.9 F Temp Source Oral Pulse Oximetry (%) 98 Oxygen Delivery Method Room Air Intake Visit Reasons: ER follow up Intake Note: Pt is here today for ER follow up visit. Allergies amlodipine Adverse Reaction (Intermediate, Verified 08/21/25 14:44) cough semaglutide (From Wegovy) Adverse Reaction (Intermediate, Verified 08/21/25 14:44) Blurry Vision cephalexin (From Keflex) Adverse Reaction (Verified 08/21/25 14:44) Rash Penicillins Adverse Reaction (Verified 08/21/25 14:44) Rash Sulfa (Sulfonamide Antibiotics) Adverse Reaction (Verified 08/21/25 14:44) Rash Medication List - Last Reconciled 08/21/25 by Francoise Solares MD bisoprolol fumarate 5 mg PO DAILY cholecalciferol (vitamin D3) 50 mcg PO DAILY turmeric root extract 538 mg PO DAILY Tobacco use date assessed: 01/20/25 Dental Screening Dental Screen Date: 01/20/25 HPI ER follow up HPI Details Patient presents for the follow-up of hospitalization at [facility] [place] for substernal chest pain. Patient underwent cardiac workup including normal stress test , echocardiogram and CT angiogram. Patient reports feeling anxious and being under lot of stress because of her father's forth year anniversary. She had seen counselor before and is contemplating restarting therapy. Patient complains of chronic left knee pain and is established with orthopedic surgeons she completed series Synvisc injections without significant improvement. [facility] Medical History HTN (hypertension) Irregular menses Anxiety Enlarged thyroid Grieving Overweight Normal pelvic exam Annual physical exam Surgical History Hx of colonoscopy Hx of cholecystectomy S/P knee surgery Family History Father HTN (hypertension) DM (diabetes mellitus) Mother HTN (hypertension) Stroke Social History Household Members Other:: , no children, work at [employer], Housing: House Patient Tobacco Use Status: Never used Tobacco e-Cigarette/Vaping Use: Never Used Second Hand Smoke Exposure: Yes service: No Current occupational status: employed Current occupation: [employer] Cognitive needs: No Hearing needs: No Vision needs: No Questionnaire Thrive Questionnaire Date Thrive assessed: 01/14/25 I am a: Patient What is your living situation today?: I have a steady place to live Within the past 12 months, did the food you bought not last and you didn't have the money to get more?: Never true Within the past 12 months, did you worry whether your food would run out before you got money to buy more?: Never true Do you have trouble paying for medicines?: No Do you have trouble getting transportation to medical appointments?: No Do you have trouble paying your heating and electricity bill?: No Do you have trouble taking care of your child, family member or friend?: No Do you have trouble with day-to-day activities such as bathing, preparing meals, shopping, managing finances, etc.?: No Are you currently unemployed and looking for a job?: No Are you interested in more education?: No Please select the resources that you would like help with: None Currently or been in a relationship where the following occur: No concerns reported THRIVE Score: 0 CARLOS-7 AMB Questionnaire CARLOS-7 Date CARLOS - 7 assessed: 01/20/25 Source: Developed by Drs. Sridhar Gill, Mercedez Devine, Raheem Horner and colleagues, with an educational brittanie from [employer]. Review of Systems Const All systems reviewed & are unremarkable except as noted in HPI and below Eyes Reports no additional complaints ENT Reports no additional complaints Card Reports no additional complaints GI Reports no additional complaints Reports no additional complaints Physical exam (Primary Care) Vital Signs: Last Vital Signs Temp 97.9 F 08/21/25 14:28 Pulse 72 08/21/25 14:28 Resp 17 08/21/25 14:28 BP 120/70 08/21/25 14:28 Pulse Ox 98 08/21/25 14:28 Oxygen Delivery Method Room Air 08/21/25 14:28 BMI result Body Mass Index 45.5 Tobacco/Smoking Status: Tobacco use Status Tobacco use date assessed 01/20/25 08/21/25 14:15 Patient Tobacco Use Status Never used Tobacco 08/21/25 14:15 e-Cigarette/Vaping Use Never Used 08/21/25 14:15 Thrive Assessment: Date of Thrive Assessment Date Thrive assessed 01/14/25 08/21/25 14:15 Currently or been in a relationship where the following occur: No concerns reported Const General: no acute distress HENMT Head: Yes normal to inspection Eyes General: appearance normal, both eyes and all related structures Resp Effort & Inspection: normal respiratory effort Auscultation: clear to auscultation bilaterally Cardio Rhythm: regular rhythm Heart sounds: S1 normal heart sound present and S2 normal heart sound present GI Inspection: Yes normal to inspection Palpation (GI): Soft to palpation Coding Level of Care Code Est Pt Level 4 (95232) Diagnoses Osteoarthritis of left knee M17.12 Anxiety F41.9 HTN (hypertension) I10 Assessment & Plan Assessment & Plan (1) Osteoarthritis of left knee: Code(s): M17.12 - Unilateral primary osteoarthritis, left knee Category: Medical Plan: Patient will be referred to physical therapy home exercises discussed with the patient (2) Anxiety: Code(s): F41.9 - Anxiety disorder, unspecified Category: Medical Plan: Stress management and meditation discussed with the patient. She will check with her insurance recommendation for counselor. Patient declined medications (3) HTN (hypertension): Code(s): I10 - Essential (primary) hypertension Category: Medical Plan: Continue bisoprolol Orders: Orders PT Evaluation and Treatment Today M17.12 - Unilateral primary osteoarthritis, left knee
[2025-08-21 14:28] VITALS: BP 120/70; PULSE 72; RESP 17; TEMP 36.6; O2SAT 98; BMI 45.5
--- OUTSIDE RECORDS SUMMARY | 2025-08-21 19:26 | XMS_ITS | Patient Health Record ---
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2 ; Pain in right foot M79.671 ; Other myositis of right foot M60.871 ; Bursitis of right foot M77.51 ; Pain in right toe(s) M79.674 and Pain in left toe(s) M79.[address] [facility] [address] [address] 11/01/2024 Ny Black Plantar fasciitis, right M72.2 ; Ingrown nail L60.0 ; Tinea unguium B35.1 ; Pain in right foot M79.671 ; Other myositis of right foot M60.871 ; Bursitis of right foot M77.51 ; Pain in right toe(s) M79.674 and Pain in left toe(s) M79.[address] [address] 01/10/2025 Ny Black Ingrown nail L60.[address] [address] 01/24/2025 Ny Black Skin ulcer of toe of right foot with fat layer exposed L97.[address] [address] 03/07/2025 Ny Black Tinea unguium B35.1 ; Pain in right toe(s) M79.674 ; Pain in left toe(s) M79.675 and Skin ulcer of toe of right foot, limited to breakdown of skin L97.[address] [address] 08/27/2024 Ny Black [address] [address] 05/14/2025 Ny Black Assessments Encounter Date Diagnosis [...] (LFT) 08/25/2023 *Liver Function Test (LFT) 03/06/2024 [id number] 01/10/2025 44756- Debride <25 sq cm 08/25/2023 66338- Debride <25 sq cm 03/07/2025 [id number]-[id number] SKIN/TISSUE 01/24/2025 Insurance Providers Payer Name Payer Address Payer Phone Subscriber Number Group Number Insured Name Patient Relationship to Insured Coverage Start Date Coverage End Date [facility] [address] [facility] [id number] Martha Nelson Self - patient is the insured Medical (General) History Medical History History ICD Code Back,Hip,and Knee pain Broken bones covid-19 Gall bladder problems High blood pressure Chicken pox Surgical History Surgery Date(Month/Year) knee surgery, left knee surgery, right 2009 cyst removal 2003 Gall bladder removal 2015
--- OUTSIDE RECORDS SUMMARY | 2025-08-21 19:26 | XMS_ITS | Clinical Summary ---
Author Organization [facility] Address [address] [place], [place] [id number] Phone Care Team Providers Care Licensed Physical Therapy Assistant Name Role Phone Pcp, Unknown Primary Care [...] HMO O O O O Care Teams Licensed Physical Therapy Assistant Relationship Specialty Start Date End Date Pcp, Unknown PCP - General 11/08/22 Additional Source Comments The information contained in this document represents components of the legal health record. It is not the complete legal health record.[facility]
== END 2025-08-21 15:16 | disposition home or self-care (01) ==
LOC: HO.HMCC 14:06
PROVIDERS: PCP Internal Medicine; Visit Provider Internal Medicine
DX: M17.12 Unilateral primary osteoarthritis, left knee (principal); F41.9 Anxiety disorder, unspecified; I10 Essential (primary) hypertension